=== PATIENT | male | born 1955 | race Caucasian/White ===

== ENCOUNTER → 2016-10-28 | Outpatient (CLI) | payer MEDICARE ==
--- NOTE | 2016-10-28 11:21 | CT ---
EXAMINATION TYPE: CT sinus wo con DATE OF EXAM: 10/28/2016 9:43 AM COMPARISON: NONE HISTORY: 60-year-old male complains of headache, dizziness, sinus congestion, and drainage x4 months. Symptoms are unresponsive to treatment. CT DLP: 641.6 mGycm Automated exposure control for dose reduction was used. TECHNIQUE: Noncontrast axial views of the paranasal sinuses were obtained. Coronal reconstructions pe rformed. FINDINGS: There is mild mucosal thickening involving the left greater than right maxillary sinuses as well as t he ethmoid air cells. The frontal and sphenoid sinuses are well pneumatized. There is no air-fluid level. Reactive betty- osteogenesis is not seen. There is no destruction of the osseous farley of the paranasal sinuses. The osteomeatal complexes are patent though slightly narrowed from mucosal thickening. Very slight leftward nasal septal deviation. The imaged brain, sella, skull base and orbits are normal in appearance. Visualized mastoid air cells and middle ear cavities are well pneumatized. Reformatted images confirm above findings. IMPRESSION: Mild chronic maxillary and ethmoid sinus disease.
== END | disposition home or self-care (01) ==
LOC: RADCTMAIN 09:26
PROVIDERS: ATTEND Otolaryngology
DX: J32.0 Chronic maxillary sinusitis (principal); J32.2 Chronic ethmoidal sinusitis
CPT/HCPCS: 70486

== ENCOUNTER → 2017-01-20 | Outpatient (CLI) | payer MEDICARE | END | disposition home or self-care (01) | LOC: RADMRIMAIN 19:31 | PROVIDERS: ATTEND Internal Medicine Rheumatology | DX: Z53.9 Procedure and treatment not carried out, unspecified reason (principal) ==

== ENCOUNTER → 2017-03-16 | Outpatient (CLI) | payer MEDICARE ==
--- NOTE | 2017-03-16 21:27 | CONS ---
DATE OF SERVICE: 03/16/2017 This patient is a 61-year-old gentleman who has been evaluated in the sleep center for obstructive sleep apnea/hypopnea syndrome. HISTORY OF PRESENT ILLNESS/SLEEP-WAKE EVALUATION: Patient was diagnosed with obstructive sleep apnea about 30 years ago. All these years he has been on treatment with CPAP. His last machine he had for about 6 years. Since that time his weight has increased and he developed snoring while using his CPAP. He has had awakenings from sleep as well as sleepiness during the day. His sleep schedule at the present time is from around 10 or 11 p.m. to 7 or 8 a.m. He gets out of bed around 10 or 11 a.m. Sometimes he has problems with falling asleep, but he usually falls asleep pretty quickly. He sleeps in different positions. No TV in bedroom. He wakes up from sleep up to 5 times with nocturia. No history of hypnagogic hallucinations, sleep paralysis or cataplexy. At present, according to his , he snores while using his machine. During the day, he feels sleepy. [place] Sleepiness Scale is significantly increased to 16. He has problems with memory, concentration, irritability, depression, sexual dysfunction. I checked the patient's CPAP unit. CPAP pressure is 10 cm of water. RAMP is 45 minutes, starting at a pressure of 4. Patient is using the machine every night; 30 out of 30 nights for more than 4 hours. Leak is within acceptable range at 10 L/minute. PAST MEDICAL HISTORY: 1. Hypertension. 2. Asthma. 3. Depression. 4. ADD. 5. Hypothyroidism. 6. Back problems. 7. Sciatic nerve problems. 8. Knee problems. 9. BPH. 10. Rheumatoid arthritis. PAST SURGICAL HISTORY: 1. Tonsillectomy. 2. Surgery for carpal tunnel syndrome bilaterally. SOCIAL HISTORY: Negative for smoking. Alcohol consumption is occasional. REVIEW OF SYSTEMS: No fevers. No double vision. No recent chest pain. No shortness of breath. No abdominal pain. No bleeding episodes. No blood in urine. No seizure episodes. Multiple awakenings from sleep. Sleepiness during the day. Swelling of the legs. FAMILY HISTORY: Hypertension, angina, heart problems. hyperlipidemia, stroke, arthritis, asthma, sinus headaches, bronchitis, lung problems, sleep apnea, snoring, pneumonia, headaches, cancer, diabetes, thyroid problems, during sleep, mental illness. MEDICATIONS: 1. Advair. 2. Lotrel. 3. Instaflex. 4. Baby aspirin. 5. Ziac. 6. Wellbutrin. 7. Flonase. 8. Ibuprofen. 9. Synthroid. 10. Methotrexate. 11. Oxybutynin. 12. Tramadol. 13. Vitamin D2. 14. Some addition to the meal with vitamins, omega-3. PHYSICAL EXAM: The patient is a pleasant 61-year-old gentleman without distress. VITAL SIGNS: Blood pressure 181/94, heart rate 75, respiratory rate 16. Height 5 feet 10-1/2 inches. Weight 299. BMI 42.2. Neck 19 inches in circumference. Temperature 98.3. Oxygen saturation at room air 95%. GENERAL: A pleasant patient without distress. HEENT: PERRLA. EOMI. Evaluation of oropharynx showed tongue protrudes midline. Extremely low position of soft palate. NECK: Supple. No JVD. Thyroid is not palpable. LUNGS: Clear to percussion and to auscultation. Good air exchange. No wheezing or rhonchi. HEART: S1, S2 regular. No murmurs, gallops or rubs. ABDOMEN: Obese. EXTREMITIES: One to two plus bilateral ankle edema. PAPER PROCESSING MACHINE HELPER: Awake, alert and oriented x3. Cranial nerves 2 through 7 are intact. There is no fasciculation or atrophy noted. No focal deficits observed. IMPRESSION: 1. Obstructive sleep apnea/hypopnea syndrome for 30 years. Patient continues to use his CPAP equipment but has developed snoring, multiple awakenings from sleep and excessive daytime sleepiness; [place] Sleepiness Scale is 16. Extremely low position of soft palate. Patient has demonstrated 100% compliance with CPAP therapy. CPAP pressure is 10 cm of water. 2. Hypertension. 3. Swelling of the legs, 1 to 2+. 4. Obesity. 5. Asthma. 6. Depression. 7. History of attention deficit disorder. 8. Nasal septum deviation with some restriction of nasal breathing. 9. Hypothyroidism. 10. Sciatic nerve problems. 11. Back problems. 12. Benign prostatic hypertrophy and nocturia. 13. Status post tonsillectomy. 14. Status post carpal tunnel syndrome surgery on both arms. 15. Status post LASIK surgery. 16. Rheumatoid arthritis. PLAN: 1. CPAP titration for reevaluation of effective CPAP pressure at the present time, now that patient's weight has increased by about 100 pounds in the last 6 years. 2. I adjusted RAMP down to 20 minutes. 3. Aggressive losing-weight program. 4. Sleep hygiene with regular time in bed for at least 8 hours. 5. No driving if feeling any sleepiness. 6. All necessary prescriptions for CPAP supplies. Thank you very much for allowing me to participate in the management of your patient. Sincerely, Jluis Schmitt. , PhD, FAASM. Diplomat of [place] [employer], Sleep Medicine Board by [place] [employer] [place] [employer] [facility] [place] [facility]
== END | disposition home or self-care (01) ==
LOC: SLEEP 13:39
PROVIDERS: ATTEND Internal Medicine
DX: G47.33 Obstructive sleep apnea (adult) (pediatric) (principal); I10 Essential (primary) hypertension; M79.89 Other specified soft tissue disorders; E66.9 Obesity, unspecified; J45.909 Unspecified asthma, uncomplicated; F32.9 Major depressive disorder, single episode, unspecified; J34.2 Deviated nasal septum; E03.9 Hypothyroidism, unspecified; N40.0 Benign prostatic hyperplasia without lower urinary tract symptoms; M06.9 Rheumatoid arthritis, unspecified; R35.1 Nocturia
CPT/HCPCS: 99211

== ENCOUNTER → 2017-07-15 | Outpatient (CLI) | payer MEDICARE ==
[2017-07-15 12:02] LABS: EKG EKG PERFORMED
[2017-07-15 12:14] LABS: Basophils % (A) 0 %; CH 31.3; CHCM 32.3; Eosinophils # (A) 0.3 k/uL (0-0.7); Eosinophils % (A) 4 %; HCT 45.6 % (39.0-53.0); HGB 14.7 gm/dL (13.0-17.5); Luc # (Auto) 0.28; Luc % (Auto) 3; Lymphocytes # (A) 1.5 k/uL (1.0-4.8); Lymphocytes % (A) 16 %; MCH 31.4 pg (25.0-35.0); MCHC 32.3 g/dL (31.0-37.0); MCV 97.2 fL (80.0-100.0); Mean Platelet Volume 8.6; Monocytes # (A) 0.9 k/uL (0-1.0); Monocytes % (A) 9 %; Neutrophils # (A) 6.4 k/uL (1.3-7.7); Neutrophils % (A) 68 %; RBC 4.69 m/uL (4.30-5.90); RDW 15.2 % (11.5-15.5); WBC 9.4 k/uL (3.8-10.6); WBC (Perox) 9.77
[2017-07-15 12:27] LABS: Anion Gap 7 mmol/L; Blood Urea Nitrogen 14 mg/dL (9-20); Calcium 9.9 mg/dL (8.4-10.2); Carbon Dioxide 33 mmol/L (22-30); Chloride 98 mmol/L (98-107); Glucose 133 mg/dL (74-99); Non-African American GFR(MDRD) >60 (>60 ml/min/1.73 sqM); Potassium 3.5 mmol/L (3.5-5.1); Sodium 138 mmol/L (137-145)
[2017-07-15 12:32] LABS: Appearance,Urine Clear (Clear); Bilirubin,Urine Negative (Negative); Glucose,Urine (UA) Negative (Negative); Ketones,Urine Negative (Negative); Leukocyte Esterase,Urine Negative (Negative); Nitrite,Urine Negative (Negative); Partial Thromboplastin Time 23.4 sec (22.0-30.0); Protein,Urine Negative (Negative); Prothrombin Time 10.4 sec (9.0-12.0); Specific Gravity,Urine 1.014 (1.001-1.035); UA Billing (MACRO vs. MICRO) CHEM; Urobilinogen,Urine <2.0 mg/dL (<2.0)
--- NOTE | 2017-07-15 12:59 | XR ---
EXAMINATION TYPE: XR chest 2V DATE OF EXAM: 07/15/2017 COMPARISON: None HISTORY: 61-year-old male presurgical evaluation for lumbar surgery. TECHNIQUE: Frontal and lateral views FINDINGS: Heart is normal size. Aortic knob appears somewhat ectatic. Mild interstitial prominence of the chron ic appearance. Strandy atelectasis in the lower lungs. No consolidation or pleural effusion. IMPRESSION: 1. No acute cardiopulmonary process. 2. Ectatic appearance to the aortic knob. Nonemergent follow-up contrast enhanced CT can be performed to exclude underlying aortic aneurysm.
== END | disposition home or self-care (01) ==
LOC: LABPAT 11:40
PROVIDERS: ATTEND Orthopaedic Surgery Orthopaedic Surgery of the Spine
DX: Z01.810 Encounter for preprocedural cardiovascular examination (principal); M43.16 Spondylolisthesis, lumbar region; Z79.01 Long term (current) use of anticoagulants; Z01.812 Encounter for preprocedural laboratory examination; Z01.818 Encounter for other preprocedural examination
CPT/HCPCS: 36415; 71020; 80048; 81003; 85025; 85610; 85730; 87070; 93005

== ENCOUNTER 2018-01-10 05:51 | Day surgery (SDC) | payer MEDICARE ==
[2018-01-04 10:48] VITALS: BMI 38.0
--- NOTE | 2018-01-09 14:16 | HP ---
HISTORY AND PHYSICAL DATE OF SERVICE: 01/10/2018 Ye Montes is a 62-year-old patient seen with progressive right shoulder pain. We discussed options. He elected to proceed with arthroscopy. Consent was obtained. Preoperative medical clearance was provided Dr. Eliza Davenport. PAST MEDICAL HISTORY: Hypertension, hypothyroidism, asthma. PAST SURGICAL HISTORY: Bilateral knee arthroscopy, spinal fusion. DAILY MEDICATIONS: 1. Advair. 2. Ditropan. 3. Lotrel. 4. Proscar. 5. Synthroid. 6. Gabapentin. 7. Ziac. SOCIAL HISTORY: Patient denies current tobacco use. PHYSICAL EVALUATION OF THE RIGHT SHOULDER: Flexion 90 degrees, abduction 80 degrees, external rotation is 20 degrees with pain and weakness. Tenderness along the anterolateral acromion rotator cuff insertion site. Impingement sign positive at 80 degrees. Drop-arm sign positive. Distal neurovascular exam intact. RIGHT SHOULDER RADIOGRAPHS: Revealed a type 2 anterior acromion, evidence for acromioclavicular joint osteoarthritis. An MRI of the right shoulder revealed a massive retracted rotator cuff tendon tear. IMPRESSION: Right shoulder impingement with rotator cuff tear. PLAN: Right shoulder arthroscopy, subacromial decompression, possible arthroscopic rotator cuff repair, probable Grace procedure and debridement. MMODL / IJN: [id number] /
[2018-01-10] MEDS ORDERED: ONDANSETRON 4 MG/2 ML VIAL IVP ONE (05:54)
[2018-01-10] MEDS ORDERED: SCOPOLAMINE 1.5MG/72HR PATCH TRANSDERM ONE (05:54)
[2018-01-10] MEDS ORDERED: MORPHINE SULFATE 4 MG/ML SYRINGE IV PRN (05:54)
[2018-01-10] MEDS ORDERED: DEXAMETHASONE SOD PHOSPHATE 10 MG/ML 1 ML VIAL IV ONE (05:54)
[2018-01-10] MEDS ORDERED: LACTATED RINGERS 1,000 ML IV SCH (05:54)
[2018-01-10] MEDS ORDERED: LIDOCAINE 1% 20 ML VIAL (10MG/ML) FOR IV START INTRADERMA PRN (05:54)
[2018-01-10 06:55] LABS: Glucose,Whole Blood 247 mg/dL (75-99)
[2018-01-10] MEDS ORDERED: MIDAZOLAM 2 MG/2 ML VIAL ONE ×2 (07:01→07:37)
[2018-01-10] MEDS ORDERED: fentaNYL (PF) 50 MCG/ML 2 ML AMP ONE ×2 (07:04→07:37)
[2018-01-10] MEDS ORDERED: INSULIN ASPART 100 UNIT/ML 1 ML 10 ML VIAL SQ ONE ×2 (07:35→10:10)
[2018-01-10] MEDS ORDERED: LIDOCAINE 2% INJ 20 MG/ML (20 ML MDV) ONE (07:37)
[2018-01-10] MEDS ORDERED: ROPIVACAINE 5 MG/ML 30 ML VIAL ONE (07:37)
[2018-01-10] MEDS ORDERED: LIDOCAINE 1% INJ 10MG/ML (20 ML MDV) ONE (07:37)
[2018-01-10] MEDS ORDERED: SUCCINYLCHOLINE CHLORIDE 100 MG/5 ML SYR IV ONE (07:37)
[2018-01-10] MEDS ORDERED: PROPOFOL 10 MG/ML 20 ML VIAL IV ONE (07:37)
[2018-01-10] MEDS ORDERED: LACTATED RINGERS 1,000 ML IV ONE ×2 (07:37→08:35)
[2018-01-10] MEDS ORDERED: ePHEDrine SULFATE/0.9% NACL/PF 50 MG/5 ML SYRINGE IV ONE (07:37)
[2018-01-10 08:35] LABS: Glucose,Whole Blood 254 mg/dL (75-99)
[2018-01-10 09:50] VITALS: TEMP 97.4
[2018-01-10 09:55] LABS: Glucose,Whole Blood 244 mg/dL (75-99)
[2018-01-10 09:58] VITALS: RESP 16
--- NOTE | 2018-01-10 09:59 | P.OP ---
Date of Procedure: 01/10/18 Preoperative Diagnosis: Right shoulder impingement Postoperative Diagnosis: 1. Right shoulder rotator cuff tear 2. Right shoulder impingement 3. Right shoulder acromioclavicular joint osteoarthritis 4. Right shoulder partial long head biceps tendon tear 5. Right shoulder anterior labral tear Procedure(s) Performed: 1. Right shoulder arthroscopic rotator cuff repair 2. Right shoulder arthroscopic subacromial decompression 3. Right shoulder arthroscopic Grace procedure 4. Right shoulder arthroscopic biceps tenotomy 5. Right shoulder arthroscopic debridement labral tear Implants: 4-4.75 Arthrex anchors Anesthesia: GETA, regional (Interscalene block) Surgeon: Denton Venegas Grinder Set Up Operator Gear Tool #1: Moy Belcher Estimated Blood Loss (ml): 15 Pathology: none sent Condition: stable Disposition: PACU Indications for Procedure: 62-year-old patient seen with progressive right shoulder pain. After treatment options were discussed, he elected to proceed with arthroscopy. Operative Findings: see description of procedure Description of Procedure: Patient underwent a shoulder block by department of anesthesia. The patient was then taken to the operative suite. The patient underwent a general anesthetic by the department of anesthesia. The patient was placed into a lateral position and secured. There was appropriate padding of the bony prominence. Right shoulder was then prepped and draped in normal sterile orthopedic fashion. We placed the extremity in 10 pounds of longitudinal traction. A posterior incision was now made for a posterior working portal site. The trocar and cannula were inserted into the glenohumeral joint. Arthroscopy was initiated. Spinal needle was now inserted anteriorly, to ascertain the anterior working portal site. An incision was now made in that area, a trocar was inserted followed by a probe. Was superficial tearing of the anterior labrum. There was partial tearing of the long head biceps tendon along with some hyperemia. There was an obvious large rotator cuff tear that was clearly visualized from the glenohumeral side. I performed an arthroscopic biceps tenotomy. I debrided the superficial labral tears down to stable tissue. Residual labrum was probed and found to be stable. Instruments were now removed from the glenohumeral joint. Utilizing the posterior working portal site, the trocar and cannula were inserted into the subacromial space. Arthroscopy initiated. I made an incision 2 fingerbreadths lateral to the acromion. I introduced my trocar followed by my ArthroCare ablator. I now began ablating thick subacromial bursal tissue, which exposed the undersurface of the anterior acromion. This was diminished subacromial space. There was a very prominent anterior acromion. A motorized bur was introduced and a subacromial decompression was performed. I also excised some osteophytes off the inferior aspect of the distal clavicle. The AC joint was visualized and noted to be fairly arthritic. Our motorized bur was introduced in the anterior portal site and a Grace procedure was performed without difficulty, decompressing the AC joint nicely. I turned my attention to the rotator cuff. There was a large approximately 2.5 cm rotator cuff tendon tear along the distal supraspinatus. It was mobile over the footprint. I debrided the margins getting down to stable tissue. I abraded the footprint with a motorized bur. I created an assessory portal site off the lateral acromion. I introduced 2 medial anchors with 2 sutures each. I passed all 8 limbs of suture through good bites of rotator cuff tendon. We noted a potential dogears anteriorly introduced 1 suture loop. I now crisscrossed the sutures and introduced 2 lateral anchors which compressed the tendon along the footprint very nicely. All residual suture limbs were clipped. We had a good stable repair. I injected 1 mL of the Renue intra-articular. Instruments now removed from the portal sites. All portal sites were approximated with nylon suture. Sterile dressings were applied followed by a shoulder immobilizer. 4- 4.75Arthrex SwiveLock anchors were utilized as implants. Next branch assisted with the procedure. The patient was awakened, transferred to a bed, and taken to recovery in stable condition.
--- NOTE | 2018-01-10 11:02 | P.ONQ ---
Anesthesiology Proc Note - PNB - Peripheral Nerve Block Performed Right Interscalene Indication: Acute Post-Operative Pain, Requested by physician (Dr Venegas) Sedation Type: Sedate with meaningful contact maintained Preparation: Sterile Prep Position: Supine Catheter: None Needle Types: Other (see comment) (Sonal) Needle Size: 50mm (2") Needle Gauge: 21 Technique: Ultrasound (0.5% ropivacaaine 14cc, 2% Lidocaine with 1:100,000 epi 14cc) Blood Aspirated: No Pain Paresthesia on Injection Noted: No Resistance on Injection: Normal Events: Uneventful and Well Tolerated
[2018-01-10] MEDS ORDERED: HYDROcodone/APAP 5-325MG 1 EACH TAB PO ONE (11:28)
[2018-01-10 11:32] VITALS: BP 141/74; PULSE 87
== END 2018-01-10 11:59 | disposition home or self-care (01) ==
LOC: OR 05:51
PROVIDERS: ATTEND Orthopaedic Surgery
DX: M75.101 Unspecified rotator cuff tear or rupture of right shoulder, not specified as traumatic (principal); M19.011 Primary osteoarthritis, right shoulder; S43.491A Other sprain of right shoulder joint, initial encounter; S46.111A Strain of muscle, fascia and tendon of long head of biceps, right arm, initial encounter; E11.9 Type 2 diabetes mellitus without complications; M06.9 Rheumatoid arthritis, unspecified; I10 Essential (primary) hypertension; E03.9 Hypothyroidism, unspecified; J45.909 Unspecified asthma, uncomplicated; Z79.899 Other long term (current) drug therapy; Z87.891 Personal history of nicotine dependence; Z79.82 Long term (current) use of aspirin; Z79.84 Long term (current) use of oral hypoglycemic drugs
CPT/HCPCS: 29827; 29826; 29824; 29822; 64415; C1713 ×2; C1765; J2001 ×2; J2250; J1100; J0690; J2405; J3010; J2795; J0330; J2704

== ENCOUNTER 2018-04-22 12:16 | Emergency (ER) | payer MEDICARE ==
[2018-04-22 12:25] VITALS: TEMP 98.4
[2018-04-22] MEDS ORDERED: ONDANSETRON 4 MG/2 ML VIAL IVP STA (12:30)
[2018-04-22] MEDS ORDERED: SODIUM CHLORIDE 0.9% 1,000 ML IV STA (12:30)
--- NOTE | 2018-04-22 12:40 | ED ---
Nausea/Vomiting/Diarrhea HPI - General Chief complaint: Nausea/Vomiting/Diarrhea Stated complaint: diarrhea Time Seen by Provider: 04/22/18 12:30 Source: patient, RN notes reviewed Mode of arrival: ambulatory Limitations: no limitations - History of Present Illness Initial comments: 62-year-old male presents emergency Department chief complaint abdominal pain, vomiting and diarrhea. He states he's been having ongoing abdominal cramping with multiple episodes of watery diarrhea throughout the day and night since Monday. He states today he had 3 episodes of emesis which were bilious and contains some food denies any hematemesis or coffee-ground emesis. Patient states that he went to [facility] today and was referred to the emergency department. He denies any prior abdominal surgeries. He does admit that he had Campylobacter in the past and it feels similar. He denies any recent traveling, antibiotic use. Patient also states that he has a history of diverticulitis and he has some lower abdominal pain and cramping. He has no dysuria no hematuria or urinary frequency. He does admit to some chills with no fever. - Related Data Home Medications Medication Instructions Recorded Confirmed Advanced Instaflex 1 tab PO DAILY 07/24/17 01/10/18 Aspirin [Adult Low Dose Aspirin EC] 81 mg PO DAILY 07/24/17 01/10/18 Bisoprolol-Hctz 10-6.25 mg [Ziac 1 tab PO QAM 07/24/17 01/10/18 10-6.25] DULoxetine HCL [Cymbalta] 30 mg PO QAM 07/24/17 01/10/18 Ergocalciferol (Vitamin D2) 50,000 unit PO FR 07/24/17 01/10/18 [Vitamin D2] Flax 1 tab PO DAILY 07/24/17 01/10/18 Fluticasone Nasal [place] [Flonase 2 spr EA NOSTRIL BID 07/24/17 01/10/18 Nasal [place]] Fluticasone/Salmeterol [Advair 1 puff INHALATION RT-BID 07/24/17 01/10/18 250-50 Diskus] Folic Acid(Unknown Dose) 1 tab PO DAILY 07/24/17 01/10/18 HYDROcodone/APAP 7.5-325MG [[place] 1 tab PO TID PRN 07/24/17 01/10/18 7.5-325] Krill/Om-3/Dha/Epa/Phospho/Ast 1 cap PO DAILY 07/24/17 01/10/18 [[place]-3 Krill Oil 300 mg Sfgl] Levothyroxine Sodium [Synthroid] 150 mcg PO QAM 07/24/17 01/10/18 Methotrexate Sodium [Methotrexate] 2.5 mg PO CARR 07/24/17 01/10/18 Multivitamins, Thera [Multivitamin 1 tab PO DAILY 07/24/17 01/10/18 (formulary)] Oxybutynin Chloride 5 mg PO HS 07/24/17 01/10/18 Tamsulosin HCl [Flomax] 0.4 mg PO DAILY 07/24/17 01/10/18 amLODIPine BESYLATE/BENAZEPRIL 1 cap PO DAILY 07/24/17 01/10/18 [Lotrel 5-20 mg Capsule] buPROPion XL [Wellbutrin Xl] 300 mg PO QAM 07/24/17 01/10/18 traMADol HCL [Ultram] 50 mg PO TID PRN 07/24/17 01/10/18 Etanercept [Enbrel] 50 mg SQ MO 01/04/18 01/10/18 sitaGLIPtin PHOS/metFORMIN HCL 1 each PO DAILY 01/04/18 01/10/18 [Janumet Xr 100-1,000 mg Tablet] Previous Rx's Medication Instructions Recorded Nitrofurantoin Monohyd/M-Cryst 100 mg PO Q12HR 5 Days #10 cap 07/30/17 [Macrobid] Ciprofloxacin HCl [Cipro] 500 mg PO Q12HR #10 tablet 04/22/18 Dicyclomine [Bentyl] 20 mg PO TID #30 tablet 04/22/18 Ondansetron Odt [Zofran Odt] 4 mg PO Q8HR PRN #10 tab 04/22/18 Allergies Allergy/AdvReac Type Severity Reaction Status Date / Time mold AdvReac congestion Verified 04/22/18 12:24 dust AdvReac congestion Uncoded 04/22/18 12:24 pet dander AdvReac itchy Uncoded 04/22/18 12:24 eyes, congestion Review of Systems ROS Statement: Those systems with pertinent positive or pertinent negative responses have been documented in the HPI. ROS Other: All systems not noted in ROS Statement are negative. Past Medical History Past Medical History: Asthma, Diabetes Mellitus, Eye Disorder, Hypertension, Prostate Disorder, Rheumatoid Arthritis (RA), Sleep Apnea/CPAP/BIPAP, Thyroid Disorder Additional Past Medical History / Comment(s): . Bilateral Keratoconus, uses CPAP , chronic lower back pain. new dx of diabetes History of Any Multi-Drug Resistant Organisms: None Reported Past Surgical History: Back Surgery, Orthopedic Surgery, Tonsillectomy Additional Past Surgical History / Comment(s): Bilateral Carpal Tunnel surgery, bilateral meniscus repair, bilateral lasik eye surgery, implant right eye. back fusion 07/2017, colonoscopy, Past Anesthesia/Blood Transfusion Reactions: No Reported Reaction Past Psychological History: Depression Smoking Status: Former smoker Past Alcohol Use History: Rare Past Drug Use History: None Reported - Past Family History Mother Family Medical History: Cancer General Exam Limitations: no limitations General appearance: alert, in no apparent distress Head exam: Present: atraumatic, normocephalic, normal inspection Eye exam: Present: normal appearance, PERRL, EOMI. Absent: scleral icterus, conjunctival injection, periorbital swelling ENT exam: Present: normal exam, normal oropharynx, mucous membranes moist Neck exam: Present: normal inspection. Absent: tenderness, meningismus, lymphadenopathy Respiratory exam: Present: normal lung sounds bilaterally. Absent: respiratory distress, wheezes, rales, rhonchi, stridor Cardiovascular Exam: Present: regular rate, normal rhythm, normal heart sounds. Absent: systolic murmur, diastolic murmur, rubs, gallop, clicks GI/Abdominal exam: Present: soft, tenderness (Mild to moderate lower abdominal tenderness), normal bowel sounds. Absent: distended, guarding, rebound, rigid Back exam: Absent: CVA tenderness (R), CVA tenderness (L) Skin exam: Present: warm, dry, intact, normal color. Absent: rash Course Vital Signs 04/22/18 04/22/18 12:22 14:20 Temperature 98.4 F Pulse Rate 102 H 93 Respiratory 16 16 Rate Blood Pressure 142/83 140/80 O2 Sat by Pulse 96 95 Oximetry Medical Decision Making - Medical Decision Making 62-year-old male presents emergency department for abdominal cramping, diarrhea. Patient was unable to provide sample in the emergency department. Patient does have mild leukocytosis though CT showed no evidence of acute diverticulitis. Patient will be treated for traveler's diarrhea at this time ciprofloxacin for 5 days. Patient will follow-up for recheck and patient will do outpatient stool studies. - Lab Data Result diagrams: 04/22/18 12:43 04/22/18 12:43 Lab Results 04/22/18 04/22/18 04/22/18 Range/Units 12:43 12:43 14:24 WBC 14.0 H (3.8-10.6) k/uL RBC 5.16 (4.30-5.90) m/uL Hgb 15.5 (13.0-17.5) gm/dL Hct 46.8 (39.0-53.0) % MCV 90.6 (80.0-100.0) fL MCH 30.0 (25.0-35.0) pg MCHC 33.1 (31.0-37.0) g/dL RDW 14.9 (11.5-15.5) % Plt Count 250 (150-450) k/uL Neutrophils % 73 % Lymphocytes % 12 % Monocytes % 8 % Eosinophils % 3 % Basophils % 0 % Neutrophils # 10.2 H (1.3-7.7) k/uL Lymphocytes # 1.7 (1.0-4.8) k/uL Monocytes # 1.1 H (0-1.0) k/uL Eosinophils # 0.4 (0-0.7) k/uL Basophils # 0.0 (0-0.2) k/uL Sodium 139 (137-145) mmol/L Potassium 3.5 (3.5-5.1) mmol/L Chloride 104 (98-107) mmol/L Carbon Dioxide 23 (22-30) mmol/L Anion Gap 12 mmol/L BUN 18 (9-20) mg/dL Creatinine 0.89 (0.66-1.25) mg/dL Est GFR (CKD-EPI)AfAm >90 (>60 ml/min/1.73 sqM) Est GFR (CKD-EPI)NonAf >90 (>60 ml/min/1.73 sqM) Glucose 117 H (74-99) mg/dL Calcium 9.9 (8.4-10.2) mg/dL Total Bilirubin 0.8 (0.2-1.3) mg/dL AST 34 (17-59) U/L ALT 63 (21-72) U/L Alkaline Phosphatase 93 (38-126) U/L Total Protein 7.1 (6.3-8.2) g/dL Albumin 4.3 (3.5-5.0) g/dL Amylase 39 (30-110) U/L Lipase 18 L (23-300) U/L Urine Color Yellow Urine Appearance Clear (Clear) Urine pH 6.0 (5.0-8.0) Ur Specific [place] 1.050 H (1.001-1.035) Urine Protein Trace H (Negative) Urine Glucose (UA) Negative (Negative) Urine Ketones 1+ H (Negative) Urine Blood Negative (Negative) Urine Nitrite Negative (Negative) Urine Bilirubin Negative (Negative) Urine Urobilinogen <2.0 (<2.0) mg/dL Ur Leukocyte Esterase Negative (Negative) Disposition Clinical Impression: Diarrhea, Abdominal cramping, Vomiting Disposition: HOME SELF-CARE Condition: Stable Instructions: Acute Diarrhea (ED) Additional Instructions: Please return to the Emergency Department if symptoms worsen or any other concerns. Prescriptions: Ciprofloxacin HCl [Cipro] 500 mg PO Q12HR #10 tablet Dicyclomine [Bentyl] 20 mg PO TID #30 tablet Ondansetron Odt [Zofran Odt] 4 mg PO Q8HR PRN #10 tab PRN Reason: Nausea Is patient prescribed a controlled substance at d/c from ED?: No Referrals: Eliza Davenport MD [Primary Care Provider] - 1-2 days Time of Disposition: 15:10
[2018-04-22 12:55] LABS: Basophils % (A) 0 %; Eosinophils # (A) 0.4 k/uL (0-0.7); Eosinophils % (A) 3 %; HCT 46.8 % (39.0-53.0); HGB 15.5 gm/dL (13.0-17.5); Lymphocytes # (A) 1.7 k/uL (1.0-4.8); Lymphocytes % (A) 12 %; MCHC 33.1 g/dL (31.0-37.0); MCV 90.6 fL (80.0-100.0); Mean Platelet Volume 8.4; Monocytes # (A) 1.1 k/uL (0-1.0); Monocytes % (A) 8 %; Neutrophils # (A) 10.2 k/uL (1.3-7.7); Neutrophils % (A) 73 %; Platelet Count 250 k/uL (150-450); RBC 5.16 m/uL (4.30-5.90); RDW 14.9 % (11.5-15.5)
[2018-04-22 13:03] LABS: ALT 63 U/L (21-72); AST 34 U/L (17-59); Albumin 4.3 g/dL (3.5-5.0); Alkaline Phosphatase 93 U/L (38-126); Amylase 39 U/L (30-110); Anion Gap 12 mmol/L; Blood Urea Nitrogen 18 mg/dL (9-20); Calcium 9.9 mg/dL (8.4-10.2); Carbon Dioxide 23 mmol/L (22-30); Chloride 104 mmol/L (98-107); Glucose 117 mg/dL (74-99); Lipase 18 U/L (23-300); Potassium 3.5 mmol/L (3.5-5.1); Sodium 139 mmol/L (137-145); Total Bilirubin 0.8 mg/dL (0.2-1.3); Total Protein 7.1 g/dL (6.3-8.2)
--- NOTE | 2018-04-22 14:35 | CT ---
EXAMINATION TYPE: CT abdomen pelvis w con DATE OF EXAM: 04/22/2018 COMPARISON: 07/29/2017 HISTORY: Diarrhea CT DLP: 1682 mGycm Automated exposure control for dose reduction was used. TECHNIQUE: Helical acquisition of images was performed from the lung bases through the pelvis. CONTRAST: Performed without Oral Contrast and with IV Contrast, patient injected with 100 ml mL of Isovue 300. FINDINGS: Lung bases are clear of consolidation. There is minimal linear density at the posterior trin[place] g bases consistent with mild subsegmental atelectasis. Heart size is normal. There is no pericardial effusion. Liver spleen pancreas gallbladder appear norm al. Bile ducts are not dilated. There is no adrenal mass. Kidneys show satisfactory contrast opacification. There is no hydronephrosi s. Bladder distends smoothly. There are some prostatic calcifications. There are few sigmoid divertic juice. There is no evidence of diverticulitis. There is no evidence of appendicitis. There is no sign o f free air. There is a minimal L4-5 spondylolisthesis. There is posterior fusion surgery in the lower lumbar spine. There is no ascites. There is no retroperitoneal adenopathy. IMPRESSION: MINIMAL SIGMOID DIVERTICULOSIS. MINIMAL SUBSEGMENTAL ATELECTASIS AT THE POSTERIOR LUNG BASES IS IMPRO GAMALIEL COMPARED TO OLD EXAM. STABLE MILD FIRST-DEGREE L4-5 SPONDYLOLISTHESIS. NO SIGN OF ACUTE ABDOMEN A ND PELVIS.
[2018-04-22 14:37] LABS: Appearance,Urine Clear (Clear); Bilirubin,Urine Negative (Negative); Blood,Urine Negative (Negative); Color,Urine Yellow; Glucose,Urine (UA) Negative (Negative); Ketones,Urine 1+ (Negative); Leukocyte Esterase,Urine Negative (Negative); Nitrite,Urine Negative (Negative); Protein,Urine Trace (Negative); Urobilinogen,Urine <2.0 mg/dL (<2.0)
[2018-04-22 15:41] VITALS: BP 162/88; PULSE 90; RESP 19
== END 2018-04-22 15:39 | disposition home or self-care (01) ==
LOC: EC 12:16
DX: R19.7 Diarrhea, unspecified (principal); R10.30 Lower abdominal pain, unspecified; R11.10 Vomiting, unspecified; D72.829 Elevated white blood cell count, unspecified; J45.909 Unspecified asthma, uncomplicated; E11.9 Type 2 diabetes mellitus without complications; I10 Essential (primary) hypertension; M06.9 Rheumatoid arthritis, unspecified; G47.30 Sleep apnea, unspecified; E07.9 Disorder of thyroid, unspecified; F32.9 Major depressive disorder, single episode, unspecified; Z87.891 Personal history of nicotine dependence; Z87.19 Personal history of other diseases of the digestive system; Z99.89 Dependence on other enabling machines and devices; Z98.1 Arthrodesis status; Z98.890 Other specified postprocedural states; Z79.51 Long term (current) use of inhaled steroids; Z79.82 Long term (current) use of aspirin; Z79.84 Long term (current) use of oral hypoglycemic drugs; Z79.899 Other long term (current) drug therapy; Z91.048 Other nonmedicinal substance allergy status
CPT/HCPCS: 36415; 80053; 82150; 83690; 85025; 81003; 87324; 74177; 99284; 96374; 96361; J2405; Q9967

== ENCOUNTER → 2018-05-31 | Outpatient (CLI) | payer MEDICARE ==
--- NOTE | 2018-05-31 16:35 | PN ---
PROGRESS NOTE DATE OF SERVICE: 05/31/2018 This patient is a 62-year-old gentleman who has been followed in the sleep center for treatment of obstructive sleep apnea-hypopnea syndrome. Patient is successfully continuing to use his CPAP equipment every night without significant problems. Occasionally he may have some snoring. At present he is using a nasal mask. [place] Sleepiness Scale today is 12. I checked the patient's CPAP unit. CPAP pressure is 14 cm of water. Usage is 29/30 nights for more than 4 hours. Average usage is 8.2 hours, which is normal. Leak 34 L/minute. Borderline apnea-hypopnea index reading only 1.4, which is perfect. MEDICATIONS: 1. Janumet. 2. Prednisone. 3. Advair. 4. Lotrel. 5. Ziac. 6. Wellbutrin. 7. Flonase. 8. Ibuprofen. 9. Methotrexate. 10.Oxybutynin. 11.Tramadol. 12.Vitamin D supplements. 13.Enbrel. PHYSICAL EXAMINATION: GENERAL: A pleasant patient without any distress. VITAL SIGNS: BP 163/87, HR 74, R 16, height 5 feet 10 inches, weight 286.6, body mass index 41.0. Patient lost about 15 pounds of weight since previous visit. Oxygen saturation at room air 95% HEENT: PERRLA, EOMI. Evaluation of oropharynx showed tongue protrudes midline. Extremely low position of soft palate. NECK: Supple. No JVD. Thyroid is not palpable. LUNGS: Clear to percussion and to auscultation. Good air exchange. No wheezing or rhonchi. HEART: S1, S2 regular. No murmurs, gallops or rubs. ABDOMEN: Obese. EXTREMITIES: No clubbing or cyanosis. GARMENT STEAMER: Awake, alert, and oriented X3. Cranial nerves 2 to 7 intact. There is no fasciculation or atrophy. noted. No focal deficits observed. IMPRESSION: 1. Obstructive sleep apnea-hypopnea syndrome. Patient demonstrated practically 100% compliance with treatment, benefitting from treatment. 2. Obesity. Patient lost around 15 pounds since previous visit. 3. History of asthma. 4. Depression. 5. History of attention deficit disorder. 6. Nasal septum deviation. 7. Thyroid disorder. 8. History of sciatic nerve problem. 9. Benign prostatic hypertrophy. 10.Status post tonsillectomy. 11.Status post surgical treatment for carpal tunnel syndrome. 12.History of rheumatoid arthritis. 13.Hypertension. PLAN: 1. We fitted the patient with a new style of mask, DreamWear. I will write a prescription for this mask. 2. Patient will continue to use CPAP equipment every night. 3. Continue losing weight. 4. Sleep hygiene with regular time in bed for at least 8 hours. 5. No driving if feeling any sleepiness. 6. Will maintain all necessary prescriptions for the mask, tube, filters. Thank you very much for allowing me to participate in the management of your patient. Sincerely, Jluis Schmitt MD, PhD, FAASM Diplomat of [place] [employer] [place] [employer] Cataract Lens Generator of [facility] [place] MMODL / ASCENCIONN: [id number] /
== END | disposition home or self-care (01) ==
LOC: SLEEP 13:24
PROVIDERS: ATTEND Internal Medicine
DX: G47.33 Obstructive sleep apnea (adult) (pediatric) (principal); E66.9 Obesity, unspecified; J45.909 Unspecified asthma, uncomplicated; F32.9 Major depressive disorder, single episode, unspecified; J34.2 Deviated nasal septum; E07.9 Disorder of thyroid, unspecified; N40.0 Benign prostatic hyperplasia without lower urinary tract symptoms; I10 Essential (primary) hypertension; Z68.41 Body mass index [BMI] 40.0-44.9, adult; Z79.51 Long term (current) use of inhaled steroids; Z86.59 Personal history of other mental and behavioral disorders; Z87.39 Personal history of other diseases of the musculoskeletal system and connective tissue; Z90.89 Acquired absence of other organs; Z79.899 Other long term (current) drug therapy; Z79.1 Long term (current) use of non-steroidal anti-inflammatories (NSAID); Z79.891 Long term (current) use of opiate analgesic; Z99.89 Dependence on other enabling machines and devices; Z98.890 Other specified postprocedural states

== ENCOUNTER 2018-07-05 05:52 | Day surgery (SDC) | payer MEDICARE ==
[2018-07-02 11:14] VITALS: BMI 39.4
--- NOTE | 2018-07-04 14:11 | HP ---
HISTORY AND PHYSICAL DATE OF SERVICE: 07/05/2018 Ye Montes is a 62-year-old patient seen with progressive left shoulder pain. Treatment options were discussed with him. He elected to proceed with arthroscopy. Consent regarding the procedure was obtained. PAST MEDICAL HISTORY: Hypertension, hypothyroidism, rheumatoid arthritis, asthma. PAST SURGICAL HISTORY: Bilateral knee arthroscopy, spine surgery. MEDICATIONS: 1. Advair. 2. Aspirin. 3. Ditropan. 4. Lotrel. 5. Methotrexate. 6. Synthroid. 7. Ziac. 8. Gabapentin. 9. Enbrel. ALLERGIES: None. SOCIAL HISTORY: Patient denies tobacco use. PHYSICAL EVALUATION LEFT SHOULDER: Flexion 90 degrees, abduction 90 degrees, external rotation is 40 degrees with weakness. There is tenderness along the anterolateral acromion rotator cuff insertion site. Impingement is positive at 90 degrees. Drop-arm sign is positive. Distal neurovascular exam is intact. RADIOGRAPHS LEFT SHOULDER: Type 2 anterior acromion, acromioclavicular joint osteoarthritis and cystic changes of the tuberosity. Left shoulder MRI revealed rotator cuff tear, biceps subluxation, and a large effusion. IMPRESSION: 1. Left shoulder impingement with rotator cuff tear. 2. Left shoulder acromioclavicular joint osteoarthritis. 3. Hypertension. 4. Hyperlipidemia. 5. Hypothyroidism. PLAN: Left shoulder arthroscopy with subacromial decompression, possible arthroscopic rotator cuff repair, possible Grace procedure, biceps tendon tenotomy and debridement. MMODL / IJN: [id number] /
[~2018-07-05 05:52] MED LIST: DEXAMETHASONE SOD PHOSPHATE 10 MG/ML 1 ML VIAL IV ONE; HYDROmorphone 1 MG/ML 1 ML SYRINGE IVP PRN; LACTATED RINGERS 1,000 ML IV SCH; LIDOCAINE 1% 20 ML VIAL (10MG/ML) FOR IV START INTRADERMA PRN; MIDAZOLAM 2 MG/2 ML VIAL IV PRN; ONDANSETRON 4 MG/2 ML VIAL IVP ONE; fentaNYL (PF) 50 MCG/ML 2 ML AMP IV PRN
[2018-07-05 06:37] LABS: Glucose,Whole Blood 156 mg/dL (75-99)
[2018-07-05] MEDS ORDERED: LIDOCAINE 1% INJ 10MG/ML (20 ML MDV) ONE (07:22)
[2018-07-05] MEDS ORDERED: PROPOFOL 10 MG/ML 20 ML VIAL IV ONE (07:22)
[2018-07-05] MEDS ORDERED: SUCCINYLCHOLINE CHLORIDE VIAL 200 MG/10 ML VIAL IV ONE (07:22)
[2018-07-05] MEDS ORDERED: fentaNYL (PF) 50 MCG/ML 2 ML AMP ONE (07:22)
[2018-07-05] MEDS ORDERED: ROPIVACAINE 5 MG/ML 30 ML VIAL ONE (07:22)
[2018-07-05] MEDS ORDERED: MIDAZOLAM 2 MG/2 ML VIAL ONE (07:22)
[2018-07-05] MEDS ORDERED: ePHEDrine SULFATE/0.9% NACL/PF 50 MG/5 ML SYRINGE IV ONE (07:22)
[2018-07-05] MEDS ORDERED: LACTATED RINGERS 1,000 ML IV ONE (08:25)
--- NOTE | 2018-07-05 08:25 | P.ONQ ---
Anesthesiology Proc Note - PNB - Peripheral Nerve Block Performed Left Interscalene Single Time Out Performed: Yes Procedure Start Time: 06:49 Procedure Stop Time: 06:58 Indication: Acute Post-Operative Pain, Requested by physician Specifically requested for management of pain by DrHarshad: Denton Venegas Sedation Type: Sedate with meaningful contact maintained Preparation: Sterile Prep Position: Supine Needle Types: Other (see comment) (Pujunk) Needle Gauge: 21 Technique: Ultrasound Injectate: 0.5% Ropivacaine (see comment for volume) (25 ml) Blood Aspirated: No Pain Paresthesia on Injection Noted: No Resistance on Injection: Normal Events: Uneventful and Well Tolerated
[2018-07-05 09:43] VITALS: TEMP 96.8
--- NOTE | 2018-07-05 09:48 | P.OP ---
Date of Procedure: 07/05/18 Preoperative Diagnosis: Left shoulder impingement Postoperative Diagnosis: 1. Left shoulder rotator cuff tear 2. Left shoulder impingement 3. Left shoulder acromioclavicular joint osteoarthritis 4. Left shoulder partial long head biceps tendon tear 5. Left shoulder superior labral tear Procedure(s) Performed: 1. Left shoulder arthroscopic rotator cuff repair 2. Left shoulder arthroscopic subacromial decompression 3. Left shoulder arthroscopic Grace procedure 4. Left shoulder arthroscopic biceps tenotomy 5. Left shoulder arthroscopic debridement labral tear Implants: 44.75 Arthrex swivel lock anchors Anesthesia: GETA, regional (Interscalene block) Surgeon: Denton Venegas Crabber #1: Moy Belcher Estimated Blood Loss (ml): 10 Pathology: none sent Condition: stable Disposition: PACU Indications for Procedure: 52-year-old patient seen with progressive left shoulder pain. After treatment options were discussed, he elected to proceed with arthroscopy. Operative Findings: See description of procedure Description of Procedure: Patient underwent an interscalene block by department of anesthesia for postoperative pain control. The patient was then taken to the operative suite. The patient underwent a general anesthetic by the department of anesthesia. The patient was placed into a lateral position and secured. There was appropriate padding of the bony prominence. Left shoulder was then prepped and draped in normal sterile orthopedic fashion. We placed the extremity in 10 pounds of longitudinal traction. A posterior incision was now made for a posterior working portal site. The trocar and cannula were inserted into the glenohumeral joint. Arthroscopy was initiated. Spinal needle was now inserted anteriorly, to ascertain the anterior working portal site. An incision was now made in that area, a trocar was inserted followed by a probe. There was some superficial tearing of the superior labrum. There was partial tearing long head biceps tendon. There was an obvious rotator cuff tear visualized from glenohumeral side. There were grade 1 chondromalacia changes of the glenohumeral joint with no osteochondral tears present. The remainder of the labrum was stable. I debrided that superficial labral tear getting down to stable labral tissue. I performed an arthroscopic biceps tenotomy. The residual labrum was probed and found to be stable. Instruments now removed from glenohumeral joint. Utilizing the posterior working portal site, the trocar and cannula were inserted into the subacromial space. Arthroscopy initiated. I made an incision 2 fingerbreadths lateral to the acromion. I introduced my trocar followed by my ArthroCare ablator. I now began ablating thick subacromial bursal tissue, which exposed the undersurface of the anterior acromion. There was diminished subacromial space. There was a very prominent anterior acromion. A motorized bur was introduced and a subacromial decompression was performed. I also excised some osteophytes off the inferior aspect of the distal clavicle. The AC joint was visualized and noted to be fairly arthritic. The motorized bur was introduced in the anterior portal site and a Grace procedure was performed without difficulty, decompressing the AC joint nicely. I turned my attention to the rotator cuff. There was a 2 cm rotator cuff tear. I debrided the margins getting down to stable tendon tissue. This was completed we had about a 2.5 cm defect. I introduced my motorized bur and abraded the footprint area, getting some petechial bleeding. I now made an accessory portal site off the lateral aspect of the acromion. I punched 2 holes medial for medial row fixation with the assistance of Fam EDWARDS carefully tapping the punch with a mallet as I held the punch and the camera. I now introduced both anchors into the pre- punched holes and Fam EDWARDS tapped them with the mallet as I held anchors and the camera. Fam EDWARDS now screwed the anchors in place a while I held the anchor guide and camera. All 8 limbs of suture were now passed through good bites of rotator cuff tendon. I now punched 2 holes for lateral row fixation again I held the punch and camera while Fam EDWARDS used a mallet to tap in the punch. We now passed sutures through both anchors and individually I introduced the anchors into the pre-punch holes I held the anchor guide in position with one hand holding the camera with the other hand while Fam EDWARDS tensioned the sutures and screwed in the anchors one at a time. All residual suture limbs were now clipped. We had good compression of the tendon along the entire footprint. I injected 1 mL of Renue intra- articular. Instruments now removed from the portal sites. All portal sites were approximated with nylon suture. Sterile dressings were applied followed by a shoulder immobilizer. Moy EDWARDS assisted in this complex case. The patient was awakened, transferred to a bed, and taken to recovery in stable condition.
[2018-07-05 09:50] LABS: Glucose,Whole Blood 173 mg/dL (75-99)
[2018-07-05 09:51] VITALS: RESP 16
[2018-07-05 11:27] VITALS: BP 165/91; PULSE 82
== END 2018-07-05 11:54 | disposition home or self-care (01) ==
LOC: OR 05:52
PROVIDERS: ATTEND Orthopaedic Surgery
DX: M75.102 Unspecified rotator cuff tear or rupture of left shoulder, not specified as traumatic (principal); M75.42 Impingement syndrome of left shoulder; M19.012 Primary osteoarthritis, left shoulder; S46.112A Strain of muscle, fascia and tendon of long head of biceps, left arm, initial encounter; S43.432A Superior glenoid labrum lesion of left shoulder, initial encounter; X58.XXXA Exposure to other specified factors, initial encounter; M25.712 Osteophyte, left shoulder; M94.212 Chondromalacia, left shoulder; I10 Essential (primary) hypertension; E03.9 Hypothyroidism, unspecified; M06.9 Rheumatoid arthritis, unspecified; J45.909 Unspecified asthma, uncomplicated; G47.33 Obstructive sleep apnea (adult) (pediatric); Z99.89 Dependence on other enabling machines and devices; E11.9 Type 2 diabetes mellitus without complications; Z79.84 Long term (current) use of oral hypoglycemic drugs; Z79.891 Long term (current) use of opiate analgesic; Z79.82 Long term (current) use of aspirin; Z79.890 Hormone replacement therapy; Z79.899 Other long term (current) drug therapy; Z91.09 Other allergy status, other than to drugs and biological substances
CPT/HCPCS: 64415; 29826; 29827; 29824; C1713 ×2; C1765; J2250; J0330; J1100; J2405; J2001; J3010; J2795; J2704

== ENCOUNTER 2019-07-10 07:59 | Day surgery (SDC) | payer MEDICARE ==
[2019-07-08 15:39] VITALS: BMI 33.2
--- NOTE | 2019-07-09 14:56 | HP ---
HISTORY AND PHYSICAL REASON FOR ADMISSION: Surgery is 07/10/2019 HISTORY OF PRESENT ILLNESS: Ye Montes is a 63-year-old patient seen with progressive left shoulder pain. We discussed options for treatment. He elected to proceed with arthroscopy. Consent was obtained. PAST MEDICAL HISTORY: Asthma, hypertension, hyperlipidemia, emh-[id number] diabetes. PAST SURGICAL HISTORY: Knee arthroscopy, shoulder arthroscopy. DAILY MEDICATIONS: 1. Advair. 2. Lotrel. 3. Synthroid. 4. Flomax. 5. Lipitor. 6. Metformin. 7. Xarelto. ALLERGIES: None. SOCIAL HISTORY: He denies current tobacco use. PHYSICAL EXAMINATION: Evaluation of the left shoulder: Flexion is 100 degrees, abduction is 100 degrees, external rotation is zero with some weakness. Tenderness along the anterolateral acromion and rotator cuff insertion site. Impingement is positive at 90. Drop arm sign is positive. Distal neurovascular exam is intact. RADIOGRAPHS: Radiographs of the left shoulder revealed a flat anterior acromion. MRI of left shoulder revealed rotator cuff tendon tear. IMPRESSION: 1. Left shoulder rotator cuff tear. 2. Hypertension. 3. Hypothyroidism. 4. Asthma. 5. Ghy-raouyqx-uitcognpj diabetes. PLAN: Left shoulder arthroscopy with rotator cuff repair. MMODL / IJN: [id number] /
[~2019-07-10 07:59] MED LIST changes: +HYDROmorphone 0.5 MG/0.5 ML SYRINGE IVP PRN; -HYDROmorphone 1 MG/ML 1 ML SYRINGE IVP PRN; +SCOPOLAMINE 1.5MG/72HR PATCH TRANSDERM ONE; -fentaNYL (PF) 50 MCG/ML 2 ML AMP IV PRN
[2019-07-10 08:26] LABS: Glucose,Whole Blood 96 mg/dL (75-99)
[2019-07-10] MEDS: fentaNYL (PF) 50 MCG/ML 2 ML AMP IV ONE ×2 (08:31→08:33)
[2019-07-10] MEDS ORDERED: LIDOCAINE 1% INJ 10MG/ML (20 ML MDV) ONE (08:54)
[2019-07-10] MEDS ORDERED: SUCCINYLCHOLINE CHLORIDE 100 MG/5 ML SYR IV ONE (08:54)
[2019-07-10] MEDS ORDERED: ePHEDrine SULFATE/0.9% NACL/PF 50 MG/5 ML SYRINGE IV ONE (08:54)
[2019-07-10] MEDS ORDERED: PHENYLEPHRINE-0.9% NACL SYG 1 MG/10 ML SYRINGE ONE (08:54)
[2019-07-10] MEDS ORDERED: LIDOCAINE 2%-EPI 1:100,000 20 ML VIAL ONE (08:54)
[2019-07-10] MEDS ORDERED: PROPOFOL 10 MG/ML 20 ML VIAL IV ONE (08:54)
[2019-07-10] MEDS ORDERED: ROPIVACAINE 5 MG/ML 30 ML VIAL ONE (08:54)
--- NOTE | 2019-07-10 09:00 | P.ANPRN ---
Procedure Note - Anesthesia - Nerve Block Performed Left Interscalene Infusion Time Out Performed: Yes ([id number]) Date of Procedure: 07/10/19 Procedure Start Time: Procedure Stop Time: :45 Location of Patient: PreOp Indication: Acute Post-Operative Pain, Dx/Pain Location, Requested by Surgeon Sedation Type: Sedate with meaningful contact maintained Preparation: Sterile Prep Position: Supine Catheter: Indwelling Needle Types: Pajunk Needle Gauge: 21 Ultrasound used to visualize needle placement: Yes Ultrasound used to observe medication spread: Yes Injectate: 0.5% Ropivacaine (see comment for volume) (10ml + 10ml 2% Lidocaine with 1:200,000 epi) Blood Aspirated: No Pain Paresthesia on Injection Noted: No Resistance on Injection: Normal Image Stored and Saved: Yes Events: Uneventful and Well Tolerated
[2019-07-10] MEDS ORDERED: ROPIVACAINE 0.2%-NS ON-Q PUMP 1,090 MG, EMPTY PAIN BALL 1 EACH MISCELLANE PRN (09:01)
[2019-07-10] MEDS ORDERED: LACTATED RINGERS 1,000 ML IV ONE (09:35)
--- NOTE | 2019-07-10 10:47 | P.OP ---
Date of Procedure: 07/10/19 Preoperative Diagnosis: Left shoulder rotator cuff tear Postoperative Diagnosis: 1. Left shoulder rotator cuff tear 2. Left shoulder impingement Procedure(s) Performed: 1. Left shoulder rotator cuff repair 2. Left shoulder arthroscopic subacromial decompression Implants: 44.75 Arthrex swivel lock anchors Anesthesia: GETA, regional (Interscalene block) Surgeon: Denton Venegas Sampling Theory Teacher #1: Moy Belcher Estimated Blood Loss (ml): 10 Pathology: none sent Condition: stable Disposition: PACU Indications for Procedure: 63-year-old patient seen with progressive left shoulder pain. After treatment options were discussed, he elected to proceed with arthroscopy. Operative Findings: See description of procedure Description of Procedure: Patient underwent an interscalene block by department of anesthesia for postoperative pain management. The patient was then taken to the operative suite. The patient underwent a general anesthetic by the department of anes thesia. The patient was placed into a lateral position and secured. There was appropriate padding of the bony prominence. Left shoulder was then prepped and draped in normal sterile orthopedic fashion. We placed the extremity in 10 pounds of longitudinal traction. A posterior incision was now made for a posterior working portal site. The trocar and cannula were inserted into the glenohumeral joint. Arthroscopy was initiated. Spinal needle was now inserted anteriorly, to ascertain the anterior working portal site. An incision was now made in that area, a trocar was inserted followed by a probe. The labrum was probed and was intact and stable. There were some grade 1 chondromalacia changes of the glenohumeral joint. The biceps tendon was absent. There was an obvious large rotator cuff tear visualized from glenohumeral side. Instruments were now removed from glenohumeral joint. Utilizing the posterior working portal site, the trocar and cannula were inserted into the subacromial space. Arthroscopy initiated. I made an incision 2 fingerbreadths lateral to the acromion. I introduced my trocar followed by my ArthroCare ablator. I now began ablating thick subacromial bursal tissue, which exposed the undersurface of the anterior acromion. There was diminished subacromial space. There was a spur along the anterior acromion.. A motorized bur was introduced and a subacromial decompression was performed. The AC joint was visualized and was noted be well decompressed. The motorized bur was introduced in the anterior portal site and a Grace procedure was performed without difficulty, decompressing the AC joint nicely. I turned my attention to the rotator cuff. There was a 2.53 cm rotator cuff recurrent tear. There was evidence of residual suture which at this point removed without difficulty. I could see the previous anchors. I did attempt to remove them put this was not possible given how long they have been implanted as they we can crumbling. I debrided the margins getting down to stable tendon tissue. I introduced my motorized bur and abraded the footprint area, getting some petechial bleeding. I now made an accessory portal site off the lateral aspect of the acromion. I punched 2 holes medial for medial row fixation with the assistance of Fam EDWARDS carefully tapping the punch with a mallet as I held the punch and the camera. I now introduced both anchors into the pre-punched holes and Fam EDWARDS tapped them with the mallet as I held anchors and the camera. Fam EDWARDS now screwed the anchors in place a while I held the anchor guide and camera. All 8 limbs of suture were now passed through good bites of rotator cuff tendon. I now punched 2 holes for lateral row fixation again I held the punch and camera while Fam EDWARDS used a mallet to tap in the punch. We now passed sutures through both anchors and individually I introduced the anchors into the pre-punch holes I held the anchor guide in position with one hand hold ing the camera with the other hand while Fma EDWARDS tensioned the sutures and screwed in the anchors one at a time. All residual suture limbs were now clipped. We had good compression of the tendon along the entire footprint. I injected 1 mL Renyte intra-articular. Instruments now removed from the portal sites. All portal sites were approximated with nylon suture. Sterile dressings were applied followed by a shoulder immobilizer. Moy EDWARDS assisted in this complex case. The patient was awakened, transferred to a bed, and taken to recovery in stable condition.
[2019-07-10 11:17] VITALS: TEMP 97
[2019-07-10 12:08] VITALS: RESP 17
[2019-07-10] MEDS ORDERED: HYDROcodone/APAP 7.5-325MG 1 EACH TAB PO ONE (12:11)
[2019-07-10 12:42] VITALS: BP 139/79; PULSE 73
== END 2019-07-10 13:01 | disposition home or self-care (01) ==
LOC: OR 07:59
PROVIDERS: ATTEND Orthopaedic Surgery
DX: M75.102 Unspecified rotator cuff tear or rupture of left shoulder, not specified as traumatic (principal); M75.42 Impingement syndrome of left shoulder; M94.212 Chondromalacia, left shoulder; I10 Essential (primary) hypertension; E03.9 Hypothyroidism, unspecified; J45.909 Unspecified asthma, uncomplicated; E11.9 Type 2 diabetes mellitus without complications; E78.5 Hyperlipidemia, unspecified; Z79.01 Long term (current) use of anticoagulants; Z79.84 Long term (current) use of oral hypoglycemic drugs; Z79.890 Hormone replacement therapy; Z79.51 Long term (current) use of inhaled steroids; Z79.899 Other long term (current) drug therapy; I48.91 Unspecified atrial fibrillation; G47.33 Obstructive sleep apnea (adult) (pediatric); Z99.89 Dependence on other enabling machines and devices; Z98.1 Arthrodesis status; Z98.42 Cataract extraction status, left eye; Z98.41 Cataract extraction status, right eye; Z79.891 Long term (current) use of opiate analgesic
CPT/HCPCS: 29826; 29827; 64415; C1713 ×2; Q4212; J2250; J1100; J0690; J2405; J2001; J3010; J2795 ×2; J2370; J0330; J2704

== ENCOUNTER → 2019-08-15 | Outpatient (CLI) | payer MEDICARE ==
--- NOTE | 2019-08-15 14:57 | SFUN ---
SLEEP CENTER FOLLOW UP NOTE DATE OF SERVICE: 08/15/2019 A 63-year-old gentleman who has been followed in the Sleep Center for treatment of obstructive sleep apnea-hypopnea syndrome. The patient continued to use CPAP equipment every night for the whole night. Occasionally may have some episodes of snoring according to his . He is getting all his CPAP supplies on time. [place] Sleepiness Scale today is 12. I checked his CPAP unit, CPAP pressure is 14 cm of water. Patient using equipment 100% of time more than 4 hours with average usage 8.3 hours per night. Leak is 28 L/minute. Apnea-hypopnea index 1.1 only, which is perfect. MEDICATIONS: Ibuprofen, Advair, Lotrel, baby aspirin, Wellbutrin, Diclofenac, Flomax, Flonase, Janumet, Synthroid, Lipitor, metformin, oxybutynin, Enbrel for rheumatoid arthritis. PHYSICAL EXAM: Patient in no distress, BP 160/82, HR 78, RR 16, height 5 feet 10-3/4, weight 271.2 pounds, which is 15 pounds less than during last visit one year ago. Oxygen saturation at room air 96%. Temp is 98.1. OROPHARYNX: Extremely low position of soft palate, Mallampati 4. ABDOMEN: Obese. NECK: Supple, no JVD. Thyroid is not palpable. LUNGS: Clear to percussion and to auscultation. Good air exchange. No wheezing or rhonchi. HEART: S1, S2 regular. No murmurs, gallops, or rubs. EXTREMITIES: No clubbing or cyanosis. [place] CORK SLABS: Awake, alert, and oriented X3. Cranial nerves 2 to 7 intact. There is no fasciculation or atrophy. noted. No focal deficits observed. IMPRESSION: 1. Obstructive sleep apnea-hypopnea syndrome. Patient demonstrated 100% compliance with treatment, benefitting from treatment. 2. Patient is using nasal mask, slightly high leak from the machine. 3. Obesity. Patient lost about 15 pounds since last visit. 4. History of asthma. 5. Depression. 6. History of ADD. 7. Nasal septum deviation. 8. History of sciatic nerve problems. 9. Hypothyroidism. 10.Benign prostatic hypertrophy. 11.Status post tonsillectomy. 12.Status post surgical treatment for carpal tunnel syndrome. 13.History of rheumatoid arthritis. PLAN: 1. Patient will continue to use CPAP equipment with a pressure of 14 cm of water. 2. Continue losing weight. 3. I will maintain all prescription for all necessary CPAP supplies including mask which is a Mirage FX wide heated tube filters. 4. No driving if feeling sleepiness. 5. Followup visit in 1 year or earlier if patient has any problems. Thank you very much for allowing me to participate in the management of your patient. Sincerely, Jluis Schmitt MD, PhD, FAASM Diplomat of [place] [employer] [place] [employer] Surveyor Rod Helper of [facility] [place] MMODL / IJN: [id number] /
== END | disposition home or self-care (01) ==
LOC: SLEEP 13:37
PROVIDERS: ATTEND Internal Medicine
DX: G47.33 Obstructive sleep apnea (adult) (pediatric) (principal); E66.9 Obesity, unspecified; F32.9 Major depressive disorder, single episode, unspecified; J34.2 Deviated nasal septum; E03.9 Hypothyroidism, unspecified; N40.0 Benign prostatic hyperplasia without lower urinary tract symptoms; Z87.09 Personal history of other diseases of the respiratory system; Z86.59 Personal history of other mental and behavioral disorders; Z86.69 Personal history of other diseases of the nervous system and sense organs; Z87.39 Personal history of other diseases of the musculoskeletal system and connective tissue; Z98.890 Other specified postprocedural states; Z99.89 Dependence on other enabling machines and devices; Z79.82 Long term (current) use of aspirin; Z79.1 Long term (current) use of non-steroidal anti-inflammatories (NSAID); Z79.84 Long term (current) use of oral hypoglycemic drugs; Z79.899 Other long term (current) drug therapy

== ENCOUNTER → 2019-10-22 | Outpatient (CLI) | payer MEDICARE | END | disposition home or self-care (01) | LOC: LABPAT 13:42 | PROVIDERS: ATTEND Orthopaedic Surgery | DX: Z01.812 Encounter for preprocedural laboratory examination (principal) | CPT/HCPCS: 87070 ==

== ENCOUNTER → 2020-05-04 | Outpatient (CLI) | payer MEDICARE ==
[2020-05-04 12:21] LABS: Basophils # (A) 0.1 k/uL (0-0.2); Basophils % (A) 1 %; Eosinophils # (A) 0.2 k/uL (0-0.7); Eosinophils % (A) 2 %; HCT 42.5 % (39.0-53.0); HGB 13.6 gm/dL (13.0-17.5); Lymphocytes # (A) 1.7 k/uL (1.0-4.8); Lymphocytes % (A) 16 %; MCH 28.6 pg (25.0-35.0); MCV 89.3 fL (80.0-100.0); Mean Platelet Volume 8.9; Monocytes # (A) 0.7 k/uL (0-1.0); Monocytes % (A) 6 %; Neutrophils # (A) 7.3 k/uL (1.3-7.7); Neutrophils % (A) 71 %; Platelet Count 200 k/uL (150-450); RBC 4.76 m/uL (4.30-5.90); RDW 13.7 % (11.5-15.5); WBC 10.3 k/uL (3.8-10.6)
[2020-05-04 12:29] LABS: Prothrombin Time 10.6 sec (9.0-12.0)
[2020-05-04 12:33] LABS: ALT 48 U/L (4-49); AST 33 U/L (17-59); African American GFR (CKD) >90 (>60 ml/min/1.73 sqM); Albumin 4.2 g/dL (3.5-5.0); Alkaline Phosphatase 121 U/L (38-126); Anion Gap 8 mmol/L; Blood Urea Nitrogen 18 mg/dL (9-20); Calcium 9.4 mg/dL (8.4-10.2); Carbon Dioxide 32 mmol/L (22-30); Chloride 100 mmol/L (98-107); Cholesterol 119 mg/dL (<200); Glucose 210 mg/dL (74-99); HDL Cholesterol 48 mg/dL (40-60); LDL Cholesterol,Calculated 57 mg/dL (0-99); Non-African American GFR(CKD) >90 (>60 ml/min/1.73 sqM); Potassium 4.1 mmol/L (3.5-5.1); Sodium 140 mmol/L (137-145); Total Bilirubin 0.5 mg/dL (0.2-1.3); Total Protein 6.9 g/dL (6.3-8.2); Triglycerides 71 mg/dL (<150)
[2020-05-04 19:38] LABS: Hemoglobin A1C 8.1 % (4.0-6.0)
[2020-05-04 20:24] LABS: Prostate Specific Antigen 0.4 ng/mL (0.0-4.5)
== END | disposition home or self-care (01) ==
LOC: LABPAT 10:32
PROVIDERS: ATTEND Family Medicine
DX: Z01.818 Encounter for other preprocedural examination (principal); E78.00 Pure hypercholesterolemia, unspecified; E55.9 Vitamin D deficiency, unspecified; E11.21 Type 2 diabetes mellitus with diabetic nephropathy; M15.8 Other polyosteoarthritis; N40.1 Benign prostatic hyperplasia with lower urinary tract symptoms; R97.20 Elevated prostate specific antigen [PSA]
CPT/HCPCS: 80053; 80061; 82306; 83036; 84153; 84443; 85025; 85610; 93005

== ENCOUNTER → 2020-05-15 | Outpatient (CLI) | payer MEDICARE | END | disposition home or self-care (01) | LOC: LABWHC1 07:58 | PROVIDERS: ATTEND Orthopaedic Surgery | DX: Z01.812 Encounter for preprocedural laboratory examination (principal) | CPT/HCPCS: 87070 ==

== ENCOUNTER 2020-05-18 13:52 | Day surgery (SDC) | payer MEDICARE ==
[2020-05-14 11:31] VITALS: BMI 37.1
--- NOTE | 2020-05-17 09:57 | HP ---
HISTORY AND PHYSICAL REASON FOR ADMISSION: Surgery is scheduled for 05/18/2020. Ye Montes is a 64-year-old patient seen with progressive right knee pain. We discussed options for treatment. He elected to proceed with right total knee arthroplasty. Consent regarding the procedure was obtained. Medical clearance was provided by Dr. Eliza Davenport. PAST MEDICAL HISTORY: Hypertension, hypothyroidism, hyperlipidemia, [id number] diabetes. PAST SURGICAL HISTORY: Bilateral knee arthroscopy, left shoulder arthroscopy. MEDICATIONS: Advair, Lotrel, Synthroid, Flomax, Lipitor, metformin, Xarelto. ALLERGIES: None. SOCIAL HISTORY: Denies current tobacco use. PHYSICAL EXAMINATION: Evaluation of the right knee range of motion is -2/3-115. Tenderness along the medial joint line. Crepitus along the medial patellofemoral compartments with range of motion. Pain with patellofemoral compression. Ligaments are stable. Hip rotation is without pain. His distal neurovascular exam is intact. RADIOGRAPHS: Radiographs of the right knee reveal severe osteoarthritic changes. IMPRESSION: 1. Right knee osteoarthritis. 2. Hypertension. 3. Hyperlipidemia. 4. Hypothyroidism. PLAN: Right total knee arthroplasty. Surgery scheduled for 05/18/2020. MMODL / IJN: [id number] /
[~2020-05-18 13:52] MED LIST changes: +ACETAMINOPHEN TAB 500 MG TAB PO ONE; -LACTATED RINGERS 1,000 ML IV SCH; -LIDOCAINE 1% 20 ML VIAL (10MG/ML) FOR IV START INTRADERMA PRN; +MELOXICAM 7.5 MG TAB PO ONE; -MIDAZOLAM 2 MG/2 ML VIAL IV PRN; +MORPHINE SULFATE 2 MG/ML SYRINGE IV PRN; +ROPIVACAINE 246.25 MG, EPINEPHrine 0.5 MG, KETOROLAC 30 MG, cloNIDine HCL/PF 80 MCG, WA... MISCELLANE ONE; +TRANEXAMIC ACID 1,000 MG in SODIUM CHLORIDE 0.9% 100 ML IVPB ONE; +ceFAZolin 3 GM in SODIUM CHLORIDE 0.9% 100 ML IVPB ONE; +fentaNYL (PF) 50 MCG/ML 2 ML AMP IV PRN
[2020-05-18] MEDS: LACTATED RINGERS 1,000 ML IV SCH ×2 (14:40→19:49)
[2020-05-18 14:43] LABS: Glucose,Whole Blood 156 mg/dL (75-99)
[2020-05-18] MEDS ORDERED: LIDOCAINE 1% (10MG/ML) FOR IV START INTRADERMA ONE (14:43)
[2020-05-18] MEDS ORDERED: fentaNYL (PF) 50 MCG/ML 2 ML AMP IV ONE (14:46)
[2020-05-18] MEDS ORDERED: MIDAZOLAM 2 MG/2 ML VIAL IV ONE (14:46)
[2020-05-18] MEDS ORDERED: SODIUM CHLORIDE 0.9% 100 ML BAG ONE (15:18)
[2020-05-18] MEDS ORDERED: fentaNYL (PF) 50 MCG/ML 2 ML AMP ONE (15:18)
[2020-05-18] MEDS ORDERED: ePHEDrine SULFATE/0.9% NACL/PF 50 MG/5 ML SYRINGE IV ONE (15:18)
[2020-05-18] MEDS ORDERED: TRANEXAMIC ACID 1,000 MG/10 ML VIAL ONE (15:18)
[2020-05-18] MEDS ORDERED: MIDAZOLAM 2 MG/2 ML VIAL ONE (15:18)
[2020-05-18] MEDS ORDERED: PROPOFOL 10 MG/ML 20 ML VIAL IV ONE (15:18)
[2020-05-18] MEDS ORDERED: KETAMINE 10 MG/ML 20 ML VIAL ONE (15:18)
[2020-05-18] MEDS ORDERED: ROPIVACAINE 0.2%-NS ON-Q PUMP 1,090 MG, EMPTY PAIN BALL 1 EACH MISCELLANE PRN (17:04)
[2020-05-18] MEDS ORDERED: HYDROmorphone 1 MG/ML 1 ML SYRINGE IVP PRN (17:05)
[2020-05-18] MEDS ORDERED: HYDROmorphone 0.5 MG/0.5 ML SYRINGE IVP PRN ×2 (17:05)
[2020-05-18] MEDS ORDERED: ONDANSETRON 4 MG/2 ML VIAL IVP PRN (17:05)
[2020-05-18] MEDS ORDERED: HYDROcodone/APAP 5-325MG 1 EACH TAB PO PRN (17:05)
[2020-05-18] MEDS ORDERED: NALOXONE 0.4 MG/ML 1 ML VIAL IV PRN (17:05)
--- NOTE | 2020-05-18 17:05 | P.OP ---
Date of Procedure: 05/18/20 Preoperative Diagnosis: Right knee osteoarthritis Postoperative Diagnosis: Right knee osteoarthritis Procedure(s) Performed: Right total knee arthroplasty Implants: 1. Depuy attune size 8 right cruciate retaining cemented femur 2. Depuy attune size 8 fixed bearing cemented tibial baseplate 3. Depuy attune size 8 fixed bearing cruciate retaining 12 mm polythene tibial insert 4. Depuy attune 41 mm all polyethylene cemented patella Anesthesia: GETA, regional (Adductor canal catheter), local, spinal Surgeon: Denton Venegas Instrument Lens Grinder #1: Moy Belcher Estimated Blood Loss (ml): 50 Pathology: other Condition: stable Disposition: PACU Indications for Procedure: 64-year-old patient seen with symptomatic right knee osteoarthritis. After treatment options were discussed, he elected to proceed with total knee arthro plasty. Operative Findings: See description of procedure Description of Procedure: Patient was taken to the operative suite after having an adductor canal catheter placed by the department of anesthesia. Patient underwent a spinal anesthetic by the department of anesthesia. Patient was given preoperative IV intake antibiotics and TXA. A well-padded tourniquet was placed about the right lower extremity. The lower extremity was then prepped and draped in the normal sterile orthopedic fashion. The extremity was elevated, a tourniquet was in sufflated to 300. A standard anterior incision was made sharply through skin. Dissection was taken down through the subcutaneous soft tissues down to the extensor mechanism. At this point the patient although didn't seem to be feeling any of the surgery was still moving his leg. He now was converted to a general anesthetic by the department of anesthesia. A medial arthrotomy was performed, patella was everted and knee was flexed. There was advanced osteoarthritis noted. I introduced my distal intramedullary femoral drill. I then introduced the distal femoral cutting jig. Fam EDWARDS secured the cutting jig with 2 pins. I held retractors in position while Fam EDWARDS performed the distal femoral resection through the guide area we now removed her distal femoral cutting guide. We now placed our 4-in-1 femoral cutting block and positioned and it was secured with 2 pins by Fam EDWARDS while I held the block in position. The distal femoral finishing was now completed. A proximal tibial cutting guide was positioned. I held the guide in the appropriate position with both hands well Fam EDWARDS inserted stabilizing pins into the guide. Proximal tibial cut was made. We now placed a trial femoral component into position, along with an appropriate size tibial tray and insert. We now took the knee through range of motion and had full extension good flexion and g ood overall soft tissue balance noted. The patella was everted and stabilized with 2 towel clips held by Fam EDWARDS while I performed a flush with patellar quad tendon utilizing a fresh sawblade. We templated the patella, appropriate drill holes were made. An appropriate trial patella was positioned, knee was taken through full range of motion with the patella tracking very nicely. The trial patella was removed. Drill holes were made through the femoral component. All trial components were removed after marking off the appropriate rotation of the tibia. Retractors were now positioned along the proximal tibia. An appropriate keel punch was made with the appropriate size tibial guide by myself on Fam EDWARDS assisted by holding retractors. At this point appropriate size implants were chosen and opened. The joint was irrigated copiously with pulse lavage mechanical irrigation. The posterior capsule was infiltrated with local analgesic. The wound was irrigated with pulse lavage mechanical irrigation. We mixed antibiotic methylmethacrylate. We placed the knee into flexion. We placed multiple retractors assisted by Fam EDWARDS to expose the proximal tibia. Once the methyl methacrylate was ready, the tibial component was cemented into place removing any excess methylmethacrylate form by both myself and Fam EDWARDS. The femoral component was cemented into place removing the removing any excess methylmethacrylate performed by both myself and Fam EDWARDS. We then inserted the appropriate size polyethylene tibial insert. We made sure that it was locked into position. We took the knee into full extension, and then back in a flexion making sure we had removed any excess methylmethacrylate. The patellar component was then cemented down and secured with clamp. Excess methylmethacrylate removed. We kept the knee in full extension, patellar clamp in position until methylmethacrylate had hardened. Once it had hardened the patellar clamp was removed. The knee was taken through full range of motion. The patella tracked nicely. There was good soft tissue balancing. The tourniquet was now released. Additional hemostasis was achieved via el ectrocautery. A second gram of TXA was given. The wound again was irrigated with pulse lavage mechanical irrigation. The superficial soft tissues were infiltrated local analgesic. The extensor mechanism was repaired with Vicryl. We checked the repair with range of motion and it was stable. The subcutaneous soft tissues were repaired with Vicryl in layers. The skin was approximated with pernio/Dermabond. Sterile dressings were applied followed by loose web roll and Justin bandage. The patient was transferred to a bed, and taken to recovery in stable and satisfactory condition. Fam EDWARDS assisted with this complex procedure.
--- NOTE | 2020-05-18 17:05 | P.ANPRN ---
Procedure Note - Anesthesia - Nerve Block Performed Right Adductor Canal Infusion Time Out Performed: Yes (1445) Date of Procedure: 05/18/20 Procedure Start Time: 14:46 Procedure Stop Time: 14:51 Location of Patient: PreOp Indication: Acute Post-Operative Pain, Requested by Surgeon Specifically requested for management of pain by DrHarshad: Denton Venegas Sedation Type: Sedate with meaningful contact maintained Preparation: Sterile Prep Position: Supine Catheter Depth at Skin (cm): 10 Catheter: Indwelling Needle Types: Pajunk Needle Gauge: 21 Ultrasound used to visualize needle placement: Yes Ultrasound used to observe medication spread: Yes Injectate: 0.5% Ropivacaine (see comment for volume) (20cc) Blood Aspirated: No Pain Paresthesia on Injection Noted: No Resistance on Injection: Normal Image Stored and Saved: Yes Events: Uneventful and Well Tolerated
[2020-05-18] MEDS ORDERED: LACTATED RINGERS 1,000 ML IV ONE (17:16)
--- NOTE | 2020-05-18 18:15 | XR ---
EXAMINATION TYPE: XR knee limited RT DATE OF EXAM: 05/18/2020 COMPARISON: NONE HISTORY: Postop TECHNIQUE: 2 views FINDINGS: There is right knee prosthesis. Components are in anatomic position. IMPRESSION: No complicating process seen.
[2020-05-18] MEDS ORDERED: DICLOFENAC SODIUM GEL 100 GM TUBE TOPICAL PRN (20:26)
[2020-05-18] MEDS: HYDROcodone/APAP 5-325MG 1 EACH TAB PO PRN (20:38)
[2020-05-18 20:39] LABS: Glucose,Whole Blood 210 mg/dL (75-99)
[2020-05-18] MEDS ORDERED: OXYBUTYNIN CHLORIDE 5 MG TAB PO SCH (21:00)
[2020-05-18] MEDS ORDERED: ATORVASTATIN 40 MG TAB PO SCH (21:00)
[2020-05-18] MEDS: INSULIN ASPART (NovoLOG) 100 UNIT/ML VIAL SQ SCH (21:38)
[2020-05-18] MEDS: TAMSULOSIN 0.4 MG CAP.ER.24H PO SCH (21:39)
[2020-05-18] MEDS: ceFAZolin 3 GM in SODIUM CHLORIDE 0.9% 100 ML IVPB SCH (23:13)
[2020-05-19] MEDS: HYDROcodone/APAP 5-325MG 1 EACH TAB PO PRN ×2 (02:26→09:11)
[2020-05-19] MEDS: LACTATED RINGERS 1,000 ML IV SCH ×2 (05:26→08:01)
[2020-05-19] MEDS ORDERED: ENOXAPARIN 30 MG/0.3 ML SYRINGE SQ SCH (06:00)
[2020-05-19] MEDS ORDERED: LEVOTHYROXINE 75 MCG TAB PO SCH (06:30)
--- NOTE | 2020-05-19 06:36 | P.PN ---
Progress Note - Text Progress Note Date: 05/19/20 (464) Anesthesiology Postop day 1 status post total knee arthroplasty with adductor canal catheter. Patient doing well. VAS 1 out of 10. Rest able. Gross strength intact in lower extremity. Afebrile. Denies alterations in sensorium. Catheter site intact. Heart regular rate Lungs nonlabored Abdomen nondistended Assessment: Postop day 1 status post total knee arthroplasty with adductor canal catheter Plan: All questions answered. Maintain catheter 2 more days with patient r emoval at home. Instructions were given at discharge.
[2020-05-19 06:41] LABS: Glucose,Whole Blood 168 mg/dL (75-99)
[2020-05-19 07:20] VITALS: BP 147/75; PULSE 78; RESP 18; TEMP 98
[2020-05-19] MEDS ORDERED: metFORMIN 500 MG TAB PO SCH ×2 (07:30→17:30)
[2020-05-19 07:32] LABS: Basophils % (A) 0 %; Eosinophils # (A) 0.1 k/uL (0-0.7); Eosinophils % (A) 0 %; HCT 38.1 % (39.0-53.0); HGB 12.2 gm/dL (13.0-17.5); Lymphocytes # (A) 1.9 k/uL (1.0-4.8); Lymphocytes % (A) 12 %; MCH 28.4 pg (25.0-35.0); MCV 88.7 fL (80.0-100.0); Mean Platelet Volume 8.6; Monocytes # (A) 1.1 k/uL (0-1.0); Monocytes % (A) 7 %; Neutrophils # (A) 12.9 k/uL (1.3-7.7); Neutrophils % (A) 80 %; Platelet Count 204 k/uL (150-450); RDW 13.9 % (11.5-15.5); WBC 16.2 k/uL (3.8-10.6)
[2020-05-19] MEDS ORDERED: SYMBICORT 80-4.5 MCG INHALER INHALATION SCH (08:00)
[2020-05-19] MEDS: INSULIN ASPART (NovoLOG) 100 UNIT/ML VIAL SQ SCH ×2 (08:02→13:06)
[2020-05-19] MEDS: ceFAZolin 3 GM in SODIUM CHLORIDE 0.9% 100 ML IVPB SCH (08:02)
[2020-05-19] MEDS: TAMSULOSIN 0.4 MG CAP.ER.24H PO SCH (08:03)
[2020-05-19] MEDS ORDERED: MELOXICAM 7.5 MG TAB PO SCH (09:00)
[2020-05-19] MEDS ORDERED: lisinopriL 10 MG TAB PO SCH (09:00)
[2020-05-19] MEDS ORDERED: DULoxetine HCL 30 MG CAPSULE.DR PO SCH (09:00)
[2020-05-19] MEDS ORDERED: ASPIRIN 81 MG PO SCH (09:00)
[2020-05-19] MEDS ORDERED: amLODIPine 5 MG TAB PO SCH (09:00)
[2020-05-19] MEDS ORDERED: buPROPion XL 300 MG TAB.ER.24H PO SCH (09:00)
[2020-05-19] MEDS ORDERED: BISOPROLOL-HCTZ 10-6.25 MG 1 EACH TAB PO SCH (09:00)
[2020-05-19] MEDS ORDERED: FLUTICASONE 50MCG/SPRAY NASAL 16GM EA NOSTRIL SCH (09:00)
[2020-05-19 11:28] LABS: Glucose,Whole Blood 166 mg/dL (75-99)
[2020-05-19 11:32] LABS: African American GFR (CKD) 90.5 (60.0-200.0); Albumin 3.7 g/dL (3.80-4.90); Albumin/Globulin Ratio 2.47 (1.60-3.17); Anion Gap 7.9 mmol/L (4.00-12.00); Calcium 8.8 mg/dL (8.7-10.3); Carbon Dioxide 30.1 mmol/L (21.6-31.8); Globulin 1.5 g/dL (1.6-3.3); Non-African American GFR(CKD) 78.1 (60.0-200.0); Potassium 3.9 mmol/L (3.5-5.5); Total Bilirubin 0.5 mg/dL (0.2-1.2); Total Protein 5.2 g/dL (6.2-8.2)
--- NOTE | 2020-05-19 12:04 | P.PN ---
Subjective Progress Note Date: 05/19/20 Principal diagnosis: Status post right total knee arthroplasty Patient evaluated at bedside, he is resting comfortably. He did very well with physical therapy. Pain is well-controlled, denies any chest pain or shortness of breath. Objective - Vital Signs Vital signs: Vital Signs Temp 98.0 F 05/19/20 07:00 Pulse 78 05/19/20 07:00 Resp 18 05/19/20 07:00 BP 147/75 05/19/20 07:00 Pulse Ox 93 L 05/19/20 07:00 Intake & Output 05/18/20 05/19/20 05/19/20 18:59 06:59 18:59 Intake Total 1100 1100 Output Total 50 Balance 1050 1100 Weight 125 kg 125 kg Intake: IV 1100 500 Intake, IV Titration 200 Amount Lactated Ringers 1,000 ml 200 @ 100 mls/hr IV .Q10H SUKUMAR Rx#:[id number] Oral 400 Output: Estimated Blood Loss 50 Other: Voiding Method Toilet Toilet # Voids 4 - Exam Right lower extremity: Incision is clean, dry, and intact. The foam dressing is in good condition. There is minimal soft tissue swelling and ecchymosis surrounding the medial and lateral aspects of the incision. Calf is soft, no tenderness with palpation. Plantar flexion, dorsiflexion, EHL, FHL are intact. Sensory exam to light touch throughout the extremity is intact, dorsal pedis pulses 2+. - Labs CBC & Chem 7: 05/19/20 06:37 05/19/20 06:37 Labs: Abnormal Lab Results - Last 24 Hours (Table) 05/18/20 05/18/20 05/19/20 Range/Units 14:39 20:37 06:37 WBC 16.2 H (3.8-10.6) k/uL Hgb 12.2 L (13.0-17.5) gm/dL Hct 38.1 L (39.0-53.0) % Neutrophils # 12.9 H (1.3-7.7) k/uL Monocytes # 1.1 H (0-1.0) k/uL BUN/Creatinine Ratio (12.00-20.00) Ratio Glucose (70-110) mg/dL POC Glucose (mg/dL) 156 H 210 H (75-99) mg/dL Total Protein (6.2-8.2) g/dL Albumin (3.80-4.90) g/dL Globulin (1.6-3.3) g/dL 05/19/20 05/19/20 05/19/20 Range/Units 06:37 06:40 11:28 WBC (3.8-10.6) k/uL Hgb (13.0-17.5) gm/dL Hct (39.0-53.0) % Neutrophils # (1.3-7.7) k/uL Monocytes # (0-1.0) k/uL BUN/Creatinine Ratio 23.00 H (12.00-20.00) Ratio Glucose 163 H (70-110) mg/dL POC Glucose (mg/dL) 168 H 166 H (75-99) mg/dL Total Protein 5.2 L (6.2-8.2) g/dL Albumin 3.70 L (3.80-4.90) g/dL Globulin 1.5 L (1.6-3.3) g/dL Assessment and Plan Assessment: Status post right total knee arthroplasty Plan: Pain control, plan for discharge home on oral medication GI and DVT prophylaxis, patient will resume Xarelto today Wound care discussed Home therapy and nursing of discharge Medical recommendations Discharge home today Time with Patient: Less than 30
--- NOTE | 2020-05-19 12:07 | P.DS ---
Providers Date of admission: 05/18/2020 Expected date of discharge: 05/19/20 Attending physician: Denton Venegas Primary care physician: Eliza Davenport Hospital Course: Date of admission: 05/18/2020 Date of discharge: 05/19/2020 Admission diagnosis: Status post right total knee arthroplasty Discharge diagnosis: Same Attending physician: Dr. Venegas Surgical procedures: Right total knee arthroplasty Brief history: Patient is a 64-year-old male with a history of progressive primary right knee osteoarthritis. At this point patient has failed conservative treatment measures and has opted to proceed with a elective right total knee arthroplasty. Hospital course: Details of patient's surgery can be found in operative report. Patient tolerated the procedure well and was subsequently transported to orthopedic floor. Patient's orthopeidc and medical care was provided daily. Patient had daily laboratory tests performed for evaluation of overall blood counts . Patient had daily physical therapy to include strengthening range of motion as well as education with walker ambulation. Patient was treated with Xarelto for their postoperative DVT prophylaxis during their inpatient stay. Patient was noted to have a relatively uneventful postoperative course. Patient reported satisfactory pain control with oral pain medications by postoperative day0]. Patient showed satisfactory progress with physical therapy. Patient moved steadily through the program and had no difficulty meeting the goals by postoperative day 1. Given patient's otherwise satisfactory course and having met physical therapy goals, plan is to discharge patient home on postoperative day 1. Discharge condition/disposition: Patient will be discharged home in stable condition. Discharge medications: Instructions are given on resumption of patient's normal daily medications per primary care recommendation, in addition patient will be prescribed [place] 5 mg/325 mg, Colace 100 mg. Discharge instructions: 1. Wound care and infection precautions, keep incision dry and covered while showering, no lotions, creams, moisturizers. No soaking, tubs, pools, hottubs. Do not scrub over the incision. Okay to remove foam dressing on 05/27/2020 2. Weight-bear as tolerated with walker / cane until follow-up. 3. Ice and elevate when necessary. Do not exceed 20 minutes per hour with ice pack. 4. Utilize compression sleeve until seen at first follow up appointment. 5. Visiting nursing care. 6. Home physical therapy including home CPM. 7. Pain meds and anticoagulants per prescription. 8. Pain medication has potential to cause constipation. Increase oral fluid and fiber intake. Contact primary care provider if you have not had a bowel movement within 48 hours after discharge 9. No anti-inflammatory medication until discussed at first post operative visit, this including Motrin, Aleve, Mobic, Diclofenac 10. Follow up in office at 2 weeks postop with Fam Belcher PA-C 11. Follow up with your primary care doctor 7-10 days after discharge. 12. Contact [facility] with any questions, . Procedures: Right total knee arthroplasty Patient Condition at Discharge: Good Plan - Discharge Summary Discharge Rx Participant: Yes New Discharge Prescriptions: New Docusate [Colace] 100 mg PO DAILY #30 capsule Hydrocodone/Acetaminophen [[place] 5-325] 1 - 2 each PO Q6HR PRN #56 tab PRN Reason: Pain No Action Fluticasone/Salmeterol [Advair 250-50 Diskus] 1 puff INHALATION DAILY Oxybutynin Chloride 5 mg PO HS buPROPion XL [Wellbutrin Xl] 300 mg PO QAM DULoxetine HCL [Cymbalta] 30 mg PO QAM Bisoprolol-Hctz 10-6.25 mg [Ziac 10-6.25] 1 tab PO QAM Levothyroxine Sodium [Synthroid] 150 mcg PO QAM Ergocalciferol (Vitamin D2) [Vitamin D2] 50,000 unit PO FR Aspirin [Adult Low Dose Aspirin EC] 81 mg PO DAILY Etanercept [Enbrel] 50 mg SQ CARR sitaGLIPtin PHOS/metFORMIN HCL [Janumet Xr 100-1,000 mg Tablet] 1 each PO W/SUPPER amLODIPine BESYLATE/BENAZEPRIL [amLODIPine BESYLATE/BENAZEPRIL 5-10 mg] 1 cap PO QAM metFORMIN HCL [Glucophage] 500 mg PO W/BRKFST Tamsulosin HCl [Flomax] 0.4 mg PO BID Fluticasone Nasal Cassel [Flonase Nasal Cassel] 1 spray EA NOSTRIL DAILY Rivaroxaban [Xarelto] 20 mg PO DAILY Atorvastatin [Lipitor] 40 mg PO HS Diclofenac Sodium Gel [Voltaren Gel] 2 gm TOPICAL QID PRN PRN Reason: Pain Diclofen/Gabapentin/Lidocaine TOPICAL HS Discharge Medication List Aspirin [Adult Low Dose Aspirin EC] 81 mg PO DAILY 07/24/17 [History] Bisoprolol-Hctz 10-6.25 mg [Ziac 10-6.25] 1 tab PO QAM 07/24/17 [History] DULoxetine HCL [Cymbalta] 30 mg PO QAM 07/24/17 [History] Ergocalciferol (Vitamin D2) [Vitamin D2] 50,000 unit PO FR 07/24/17 [History] Fluticasone/Salmeterol [Advair 250-50 Diskus] 1 puff INHALATION DAILY 07/24/17 [History] Levothyroxine Sodium [Synthroid] 150 mcg PO QAM 07/24/17 [History] Oxybutynin Chloride 5 mg PO HS 07/24/17 [History] buPROPion XL [Wellbutrin Xl] 300 mg PO QAM 07/24/17 [History] Etanercept [Enbrel] 50 mg SQ CARR 01/04/18 [History] sitaGLIPtin PHOS/metFORMIN HCL [Janumet Xr 100-1,000 mg Tablet] 1 each PO W/SUPPER 01/04/18 [History] Fluticasone Nasal Cassel [Flonase Nasal Cassel] 1 spray EA NOSTRIL DAILY 07/02/18 [History] Tamsulosin HCl [Flomax] 0.4 mg PO BID 07/02/18 [History] amLODIPine BESYLATE/BENAZEPRIL [amLODIPine BESYLATE/BENAZEPRIL 5-10 mg] 1 cap PO QAM 07/02/18 [History] metFORMIN HCL [Glucophage] 500 mg PO W/BRKFST 07/02/18 [History] Atorvastatin [Lipitor] 40 mg PO HS 07/08/19 [History] Diclofenac Sodium Gel [Voltaren Gel] 2 gm TOPICAL QID PRN 07/08/19 [History] Rivaroxaban [Xarelto] 20 mg PO DAILY 07/08/19 [History] Diclofen/Gabapentin/Lidocaine TOPICAL HS 05/14/20 [History] Docusate [Colace] 100 mg PO DAILY #30 capsule 05/19/20 [Rx] Hydrocodone/Acetaminophen [[place] 5-325] 1 - 2 each PO Q6HR PRN #56 tab 05/19/20 [Rx] Follow up Appointment(s)/Referral(s): [facility], [NON-STAFF] - ([facility] will call you and set up your first visit for about 24 hours after discharge from the hospital. ) Moy Belcher, PAC [PHYSICIAN DINING ROOM COORDINATOR] - 06/03/20 1:50 pm Activity/Diet/Wound Care/Special Instructions: Orthopedic Discharge Instructions: 1. Wound care and infection precautions, keep incision dry and covered while showering, no lotions, creams, moisturizers. No soaking, pools, hot tubs. Do not scrub over incision. Okay to remove home dressing on 05/27/2020 2. Weight-bear as tolerated with walker / cane until follow-up. 3. Ice and elevate when necessary. Do not exceed 20 minutes per hour with ice pack. 4. Utilize compression sleeve until seen at first follow up appointment. 5. Pain meds and anticoagulants per prescription. 6. Pain medication has potential to cause constipation. Increase oral fluid and fiber intake. Contact primary care provider if you have not had a bowel movement within 48 hours after discharge. 7. No anti-inflammatory medication until discussed at first post operative visit, this including Motrin, Aleve, Mobic, Diclofenac 8. Follow up in office at 2 weeks postop with Fam Belcher PA-C 9. Follow up with your primary care doctor 7-10 days after discharge. 10. Contact [facility] with any questions, [phone]. 11. Please call [employer] once home to arrange delivery of Continuous Passive Motion (CPM) machine: [phone]. Discharge Disposition: HOME WITH HOME HEALTH SERVICES
[2020-05-19] MEDS ORDERED: LINAGLIPTIN 5 MG TABLET PO SCH (17:30)
[2020-05-19] MEDS ORDERED: RIVAROXABAN 20 MG TAB PO SCH (17:30)
[2020-05-22] MEDS ORDERED: ERGOCALCIFEROL 50,000 UNIT CAP PO SCH (12:00)
== END 2020-05-19 14:41 | disposition home health service (06) ==
LOC: OR 13:52 → 4SSUR 16:58 → OR 05-19 14:41
PROVIDERS: ATTEND Orthopaedic Surgery
DX: M17.11 Unilateral primary osteoarthritis, right knee (principal); I10 Essential (primary) hypertension; E78.5 Hyperlipidemia, unspecified; J45.909 Unspecified asthma, uncomplicated; G47.33 Obstructive sleep apnea (adult) (pediatric); E03.9 Hypothyroidism, unspecified; E11.9 Type 2 diabetes mellitus without complications; F41.9 Anxiety disorder, unspecified; F32.9 Major depressive disorder, single episode, unspecified; K21.9 Gastro-esophageal reflux disease without esophagitis; M06.9 Rheumatoid arthritis, unspecified; Z91.09 Other allergy status, other than to drugs and biological substances; Z79.82 Long term (current) use of aspirin; Z79.01 Long term (current) use of anticoagulants; Z79.84 Long term (current) use of oral hypoglycemic drugs; Z79.890 Hormone replacement therapy; Z79.51 Long term (current) use of inhaled steroids; Z79.899 Other long term (current) drug therapy; Z99.89 Dependence on other enabling machines and devices; Z98.42 Cataract extraction status, left eye; Z98.890 Other specified postprocedural states
CPT/HCPCS: 97110; 97161; 64448; 76942; 80053; 85025; 88300; 73560; 27447; C1776; C1713; J2250; J0171; J1100; J0690 ×2; J2405; J3010; J1885; J2795 ×2; J2704; J0735

== ENCOUNTER → 2020-08-24 | Outpatient (CLI) | payer MEDICARE ==
[2020-08-24 10:20] LABS: Basophils % (A) 0 %; Eosinophils # (A) 0.1 k/uL (0-0.7); Eosinophils % (A) 1 %; HCT 40.2 % (39.0-53.0); Lymphocytes # (A) 1.7 k/uL (1.0-4.8); Lymphocytes % (A) 15 %; MCH 28.2 pg (25.0-35.0); MCHC 32.3 g/dL (31.0-37.0); MCV 87.4 fL (80.0-100.0); Mean Platelet Volume 8.5; Monocytes # (A) 0.7 k/uL (0-1.0); Monocytes % (A) 7 %; Neutrophils # (A) 8.3 k/uL (1.3-7.7); Neutrophils % (A) 75 %; Platelet Count 210 k/uL (150-450); RDW 14.3 % (11.5-15.5); WBC 11.1 k/uL (3.8-10.6)
[2020-08-24 10:26] LABS: INR 1.1 (<1.2); Prothrombin Time 11.2 sec (9.0-12.0)
[2020-08-24 10:32] LABS: Potassium 3.7 mmol/L (3.5-5.1)
== END | disposition home or self-care (01) ==
LOC: LABPAT 09:22
PROVIDERS: ATTEND Orthopaedic Surgery
DX: Z01.812 Encounter for preprocedural laboratory examination (principal); M17.12 Unilateral primary osteoarthritis, left knee
CPT/HCPCS: 80051; 85025; 85610; 87070

== ENCOUNTER 2020-08-31 08:47 | Day surgery (SDC) | payer MEDICARE ==
[2020-08-26 11:54] VITALS: BMI 39.4
--- NOTE | 2020-08-30 12:34 | HP ---
HISTORY AND PHYSICAL REASON FOR ADMISSION: Surgery 08/31/2020 Ye Montes is a 64-year-old gentleman seen with symptomatic left knee osteoarthritis. Options for treatment were discussed with him. He elected to proceed with left total knee arthroplasty. Consent regarding the procedure was obtained. Previous clearance provided by Dr. Eliza Davenport. PAST MEDICAL HISTORY: Hypertension, hyperlipidemia, [id number] diabetes, hypothyroidism. PAST SURGICAL HISTORY: Right total knee arthroplasty, bilateral knee arthroscopy, left shoulder arthroscopy with lumbar spine fusion. MEDICATIONS: Advair, Lotrel, Synthroid, Cymbalta, Flomax, Lipitor, metformin and Xarelto. ALLERGIES: None. SOCIAL HISTORY: He denies current tobacco use. PHYSICAL EXAMINATION: Evaluation of the left knee: Range of motion -4/5-110 tenderness medial joint line. Mild effusion. Crepitus medial patellofemoral compartments range of motion. Pain with patellofemoral compression. Ligaments stable. Hip rotation without pain. Distal neurovascular exam intact. RADIOGRAPHS: Left knee radiographs reveal severe osteoarthritic changes. IMPRESSION: 1. Left knee osteoarthritis. 2. Hypertension. 3. Hyperlipidemia. 4. Hypothyroidism. PLAN: Left total knee arthroplasty. Surgery scheduled for 08/31/2020. MMODL / IJN: [id number] /
[~2020-08-31 08:47] MED LIST changes: -ACETAMINOPHEN TAB 500 MG TAB PO ONE; +ACETAMINOPHEN TAB 500 MG TAB PO PRN; -DEXAMETHASONE SOD PHOSPHATE 10 MG/ML 1 ML VIAL IV ONE; +DEXAMETHASONE SOD PHOSPHATE 4 MG/ML 1 ML VIAL IV ONE; -MELOXICAM 7.5 MG TAB PO ONE; +MELOXICAM 7.5 MG TAB PO PRN; -MORPHINE SULFATE 2 MG/ML SYRINGE IV PRN; -ROPIVACAINE 246.25 MG, EPINEPHrine 0.5 MG, KETOROLAC 30 MG, cloNIDine HCL/PF 80 MCG, WA... MISCELLANE ONE; +ROPIVACAINE/EPI/CLONIDINE/KET 50 ML SYRINGE MISCELLANE PRN; -SCOPOLAMINE 1.5MG/72HR PATCH TRANSDERM ONE; -TRANEXAMIC ACID 1,000 MG in SODIUM CHLORIDE 0.9% 100 ML IVPB ONE; +TRANEXAMIC ACID 1,000 MG in SODIUM CHLORIDE 0.9% 100 ML IVPB PRN; -ceFAZolin 3 GM in SODIUM CHLORIDE 0.9% 100 ML IVPB ONE; +ceFAZolin 3 GM in SODIUM CHLORIDE 0.9% 100 ML IVPB PRN; -fentaNYL (PF) 50 MCG/ML 2 ML AMP IV PRN
[2020-08-31 09:34] LABS: Glucose,Whole Blood 224 mg/dL (75-99)
[2020-08-31] MEDS: LACTATED RINGERS 1,000 ML IV SCH (09:36)
[2020-08-31] MEDS ORDERED: MIDAZOLAM 2 MG/2 ML VIAL IV ONE (09:53)
[2020-08-31] MEDS ORDERED: fentaNYL (PF) 50 MCG/ML 2 ML AMP IVP ONE (09:53)
[2020-08-31] MEDS ORDERED: fentaNYL (PF) 50 MCG/ML 2 ML AMP ONE (11:10)
[2020-08-31] MEDS ORDERED: TRANEXAMIC ACID 1,000 MG/10 ML VIAL ONE (11:10)
[2020-08-31] MEDS ORDERED: SODIUM CHLORIDE 0.9% 100 ML BAG ONE (11:10)
[2020-08-31] MEDS ORDERED: MIDAZOLAM 2 MG/2 ML VIAL ONE (11:10)
[2020-08-31] MEDS ORDERED: PROPOFOL 10 MG/ML 20 ML VIAL IV ONE (11:10)
[2020-08-31] MEDS ORDERED: ceFAZolin 1,000 MG in SODIUM CHLORIDE 0.9% 1,000 ML IRRIGATION ONE (12:10)
[2020-08-31] MEDS ORDERED: LACTATED RINGERS 1,000 ML IV ONE (12:14)
--- NOTE | 2020-08-31 12:26 | P.ANPRN ---
Procedure Note - Anesthesia - Nerve Block Performed Left Adductor Canal Infusion Time Out Performed: Yes (952) Date of Procedure: 08/31/20 Procedure Start Time: 09:53 Procedure Stop Time: 10:00 Location of Patient: PreOp Indication: Acute Post-Operative Pain, Requested by Surgeon Specifically requested for management of pain by DrHarshad: Denton Venegas Sedation Type: Sedate with meaningful contact maintained Preparation: Sterile Prep Position: Supine Catheter: Indwelling Needle Types: Pajunk Needle Gauge: 21 Ultrasound used to visualize needle placement: Yes Ultrasound used to observe medication spread: Yes Injectate: 0.5% Ropivacaine (see comment for volume) (20cc) Blood Aspirated: No Pain Paresthesia on Injection Noted: No Resistance on Injection: Normal Image Stored and Saved: Yes Events: Uneventful and Well Tolerated
[2020-08-31] MEDS ORDERED: ROPIVACAINE 0.2%-NS ON-Q PUMP 1,090 MG, EMPTY PAIN BALL 1 EACH MISCELLANE PRN (13:45)
[2020-08-31] MEDS ORDERED: traMADol 50 MG TAB PO PRN (14:00)
[2020-08-31] MEDS ORDERED: ACETAMINOPHEN TAB 325 MG TAB PO PRN (14:00)
[2020-08-31] MEDS ORDERED: MAGNESIUM HYDROXIDE 2,400 MG/10 ML CUP PO PRN (14:00)
[2020-08-31] MEDS ORDERED: NALOXONE 0.4 MG/ML 1 ML VIAL IV PRN (14:00)
[2020-08-31] MEDS ORDERED: ONDANSETRON 4 MG/2 ML VIAL IVP PRN (14:00)
[2020-08-31] MEDS ORDERED: HYDROcodone/APAP 5-325MG 1 EACH TAB PO PRN ×2 (14:00→18:05)
[2020-08-31 14:01] LABS: Glucose,Whole Blood 258 mg/dL (75-99)
--- NOTE | 2020-08-31 14:03 | P.OP ---
Date of Procedure: 08/31/20 Preoperative Diagnosis: Left knee osteoarthritis Postoperative Diagnosis: Left knee osteoarthritis Procedure(s) Performed: Left total knee arthroplasty Implants: 1. Depuy attune size 8 cruciate retaining cemented femur 2. Depuy attune size 8 fixed bearing cemented tibial baseplate 3. Depuy attune size 8 fixed bearing cruciate retaining 8mm polyethylene tibial insert 4. Depuy attune 41 mm all polyethylene cemented patella Anesthesia: regional (adductor canal catheter), local, spinal Surgeon: Denton Venegas Fill Manager #1: Moy Belcher Estimated Blood Loss (ml): 45 Pathology: other (bone) Condition: stable Disposition: PACU Indications for Procedure: 64-year-old gentleman seen with symptomatic left knee osteoarthritis. After having treatment options discussed, he elected to proceed with total knee arthroplasty Operative Findings: See description of procedure Description of Procedure: Patient was taken to the operative suite after having an adductor canal catheter placed by the department of anesthesia. Patient underwent a spinal anesthetic by the department of anesthesia. Patient was given preoperative IV intake antibiotics and TXA. A well-padded tourniquet was placed about the left lower extremity. The lower extremity was then prepped and draped in the normal sterile orthopedic fashion. The extremity was elevated, a tourniquet was insufflated to 300. A standard anterior incision was made sharply through skin. Dissection was taken down through the subcutaneous soft tissues down to the extensor mechanism. A medial arthrotomy was performed, patella was everted and knee was flexed. There was advanced osteoarthritis noted. I introduced my distal intramedullary femoral drill. I then introduced the distal femoral cutting jig. Fam EDWARDS secured the cutting jig with 2 pins. I held retractors in position while Fam EDWARDS performed the distal femoral resection through the guide area we now removed her distal femoral cutting guide. We now placed our 4-in-1 femoral cutting block and positioned and it was secured with 2 pins by Fam EDWARDS while I held the block in position. The distal femoral finishing was now completed. A proximal tibial cutting guide was positioned. I held the guide in the appropriate position with both hands well Fam EDWARDS inserted stabilizing pins into the guide. Proximal tibial cut was made. We now placed a trial femoral component into position, along with an appropriate size tibial tray and insert. We now took the knee through range of motion and had full extension good flexion and good overall soft tissue balance noted. The patella was everted and stabilized with 2 towel clips held by Fam EDWARDS while I performed a flush with patellar quad tendon utilizing a fresh sawblade. We templated the patella, appropriate drill holes were made. An appropriate trial patella was positioned, knee was taken through full range of motion with the patella tracking very nicely. The trial patella was removed. Drill holes were made through the femoral component. All trial components were removed after marking off the appropriate rotation of the tibia. Retractors were now positioned along the proximal tibia. An appropriate keel punch was made with the appropriate size tibial guide by myself on Fam EDWARDS assisted by holding retractors. At this point appropriate size implants were chosen and opened. The joint was irrigated copiously with pulse lavage mechanical irrigation. The posterior capsule was infiltrated with local analgesic. The wound was irrigated with pulse lavage mechanical irrigation. We mixed antibiotic methylmethacrylate. We placed the knee into flexion. We placed multiple retractors assisted by Fam EDWARDS to expose the proximal tibia. Once the methyl methacrylate was ready, the tibial component was cemented into place removing any excess methylmethacrylate form by both myself and Fam EDWARDS. The femoral component was cemented into place removing the removing any excess methylmethacrylate performed by both myself and Fam EDWARDS. We then inserted the appropriate size polyethylene tibial insert. We made sure that it was locked into position. We took the knee into full extension, and then back in a flexion making sure we had removed any excess methylmethacrylate. The patellar component was then cemented down and secured with clamp. Excess methylmethacrylate removed. We kept the knee in full extension, patellar clamp in position until methylmethacrylate had hardened. Once it had hardened the patellar clamp was removed. The knee was taken through full range of motion. The patella tracked nicely. There was good soft tissue balancing. The tourniquet was now released. Additional hemostasis was achieved via electrocautery. A second gram of TXA was given. The wound again was irrigated with pulse lavage mechanical irrigation. The superficial soft tissues were infiltrated local analgesic. The extensor mechanism was repaired with Vicryl. We checked the repair with range of motion and it was stable. The subcutaneous soft tissues were repaired with Vicryl in layers. The skin was approximated with pernio/Dermabond. Sterile dressings were applied followed by loose web roll and Justin bandage. The patient was transferred to a bed, and taken to recovery in stable and satisfactory condition. Fam EDWARDS assisted with this complex procedure.
[2020-08-31] MEDS ORDERED: INSULIN ASPART (NovoLOG) 100 UNIT/ML VIAL SQ ONE (14:08)
--- NOTE | 2020-08-31 14:57 | XR ---
EXAMINATION TYPE: XR knee limited LT DATE OF EXAM: 08/31/2020 CLINICAL HISTORY: Left knee pain and arthritis status post total knee replacement. TECHNIQUE: Portable AP and crosstable lateral views of the left knee are obtained immediately postop eratively. COMPARISON: Outside Left knee x-ray August 07, 2020 FINDINGS: Metallic hardware from total left knee arthroplasty is seen and appears satisfactory in al ignment and position. There is evidence of recent surgery with diffuse subcutaneous gas and soft tis canelo swelling noted. Posterior arterial vascular calcification is redemonstrated. IMPRESSION: METALLIC HARDWARE FROM TOTAL LEFT KNEE ARTHROPLASTY IS SATISFACTORY IN ALIGNMENT.
[2020-08-31] MEDS ORDERED: ceFAZolin 3 GM in SODIUM CHLORIDE 0.9% 100 ML IVPB SCH (16:00)
[2020-08-31] MEDS: HYDROmorphone 1 MG/ML 1 ML SYRINGE IVP PRN (16:06)
[2020-08-31] MEDS ORDERED: DICLOFENAC SODIUM GEL 100 GM TUBE TOPICAL PRN (18:05)
--- NOTE | 2020-08-31 18:29 | P.CONS ---
History of Present Illness - Reason for Consult Consult date: 08/31/20 - History of Present Illness Ye Montes, is a 64-year-old male patient of Dr. Davenport who was admitted to [facility] by Dr. Venegas and underwent left total knee arthroplasty today, medical consultation was requested postoperatively for management while hospitalized. Patient has multiple medical problems including history of hypertension, history of hyperlipidemia, history of hjj-rdyhncf-iamgidjht diabetes mellitus, history of hypothyroidism, history of osteoarthritis, history of degenerative disc disease with spinal stenosis with history of lumbar fusion in the past, history of gastroesophageal reflux disease, history of obstructive sleep apnea maintained on CPAP at night, possible history of paroxysmal atrial fibrillation, patient stated that he had history of irregular heart rhythm, he has been maintained on Xarelto for about 2 years. On review of systems patient is alert and oriented 3 in no distress he has mild pain in his left lower extremity, otherwise he denies any complaints there is no fever or chills no headache or dizziness no chest pain no shortness of breath no cough no nausea or vomiting no abdominal pain no diarrhea no blood in the stools no burning with urination no frequency or urgency and no hematuria Past Medical History Past Medical History: Asthma, Diabetes Mellitus, Eye Disorder, Hyperlipidemia, Hypertension, Osteoarthritis (OA), Prostate Disorder, Rheumatoid Arthritis (RA), Sleep Apnea/CPAP/BIPAP, Thyroid Disorder Additional Past Medical History / Comment(s): Bilateral Keratoconus, uses CPAP, chronic lower back pain, had tooth pulled yesterday-states surgeon is aware, not really sure why he takes xarelto History of Any Multi-Drug Resistant Organisms: None Reported Past Surgical History: Back Surgery, Orthopedic Surgery, Tonsillectomy Additional Past Surgical History / Comment(s): Bilateral Carpal Tunnel surgery, bilateral meniscus repair, bilateral lasik eye surgery, implant right eye. back fusion 07/2017, colonoscopy, right knee replaced 2018 Past Anesthesia/Blood Transfusion Reactions: No Reported Reaction Additional Past Anesthesia/Blood Transfusion Reaction / Comm: more bleeding than expected with back surgery in 2017 Past Psychological History: Depression Additional Psychological History / Comment(s): High anxiety. Has a fear of needles, has fainted in the past. Smoking Status: Former smoker Past Alcohol Use History: Rare Additional Past Alcohol Use History / Comment(s): Quit smoking 1981 Past Drug Use History: None Reported - Past Family History Mother Family Medical History: Cancer Medications and Allergies Home Medications Medication Instructions Recorded Confirmed Type Aspirin [Adult Low Dose Aspirin EC] 81 mg PO DAILY 07/24/17 08/31/20 History Bisoprolol-Hctz 10-6.25 mg [Ziac 1 tab PO QAM 07/24/17 08/31/20 History 10-6.25] DULoxetine HCL [Cymbalta] 60 mg PO QAM 07/24/17 08/31/20 History Ergocalciferol (Vitamin D2) 50,000 unit PO CARR 07/24/17 08/31/20 History [Vitamin D2] Fluticasone/Salmeterol [Advair 1 puff INHALATION DAILY 07/24/17 08/31/20 History 250-50 Diskus] Levothyroxine Sodium [Synthroid] 150 mcg PO QAM 07/24/17 08/31/20 History Oxybutynin Chloride 10 mg PO HS 07/24/17 08/31/20 History buPROPion XL [Wellbutrin Xl] 300 mg PO QAM 07/24/17 08/31/20 History Etanercept [Enbrel] 50 mg SQ CARR 01/04/18 08/31/20 History sitaGLIPtin PHOS/metFORMIN HCL 1 each PO HS 01/04/18 08/31/20 History [Janumet Xr 100-1,000 mg Tablet] Fluticasone Nasal [place] [Flonase 1 spray EA NOSTRIL HS 07/02/18 08/31/20 History Nasal [place]] Tamsulosin HCl [Flomax] 0.8 mg PO HS 07/02/18 08/31/20 History metFORMIN HCL [Glucophage] 500 mg PO W/BRKFST 07/02/18 08/31/20 History Atorvastatin [Lipitor] 40 mg PO HS 07/08/19 08/31/20 History Diclofenac Sodium Gel [Voltaren 2 gm TOPICAL QID PRN 07/08/19 08/31/20 History Gel] Rivaroxaban [Xarelto] 20 mg PO HS 07/08/19 08/31/20 History Hydrocodone/Acetaminophen [[place] 1 - 2 each PO Q6HR PRN #56 tab 05/19/20 08/31/20 Rx 5-325] Amoxicillin 500 mg PO Q12HR 08/26/20 08/31/20 History Ibuprofen 200 - 400 mg PO Q6H PRN 08/26/20 08/31/20 History amLODIPine BESYLATE/BENAZEPRIL 1 tab PO QAM 08/26/20 08/31/20 History [amLODIPine BESYLATE/BENAZEPRIL 5-20 MG] Allergies Allergy/AdvReac Type Severity Reaction Status Date / Time mold AdvReac congestion Verified 08/31/20 09:20 dust AdvReac congestion Uncoded 08/31/20 09:20 pet dander AdvReac itchy Uncoded 08/31/20 09:20 eyes, congestion Physical Exam Vitals: Vital Signs Temp Pulse Pulse Resp BP BP Pulse Ox 08/31/20 17:30 71 140/78 92 L 08/31/20 17:15 77 168/83 94 L 08/31/20 17:00 73 151/83 94 L 08/31/20 16:45 71 141/82 93 L 08/31/20 16:30 76 134/80 95 08/31/20 16:15 73 133/79 95 08/31/20 16:00 80 136/79 94 L 08/31/20 15:45 74 142/77 08/31/20 15:44 95 08/31/20 15:30 73 73 145/77 92 L 08/31/20 14:28 75 16 144/81 96 08/31/20 14:13 74 16 153/86 97 08/31/20 13:58 76 16 151/82 97 08/31/20 13:43 97.2 F L 80 16 152/82 96 08/31/20 10:01 74 16 165/88 95 08/31/20 09:41 72 16 159/90 95 08/31/20 09:19 98.5 F 71 16 176/92 95 Intake and Output 08/31/20 08/31/20 08/31/20 06:59 14:59 22:59 Intake Total 1551 150 Output Total 45 Balance 1506 150 Intake: IV 1551 Intake, IV Titration 150 Amount Lactated Ringers 1,000 ml 150 @ 50 mls/hr IV .Q20H [facility] Rx#:[id number] Output: Estimated Blood Loss 45 Other: # Voids 1 Weight 126.2 kg 126.2 kg In general patient is alert and oriented 3 in no apparent distress HEENT head normocephalic and atraumatic Neck is supple no JVD no goiter no lymphadenopathy Chest exam reveals a few scattered rhonchi no wheezing Cardiac exam reveals regular heart sounds no gallops no murmurs Abdomen is soft nontender no organomegaly with normal bowel sounds Extremity exam reveals no edema no cyanosis or clubbing Neurological examination reveals no gross focal deficits Results Labs: Abnormal Lab Results - Last 24 Hours (Table) 08/31/20 08/31/20 Range/Units 09:29 13:59 POC Glucose (mg/dL) 224 H 258 H (75-99) mg/dL Assessment and Plan Plan: 1. Status post left total knee arthroplasty 2. Underlying history of hypertension 3. Underlying history of hyperlipidemia 4. Underlying history of cwc-dwmsyrv-oarfqdpxa diabetes mellitus 5. Underlying history of hypothyroidism 6. Underlying history of osteoarthritis with previous history of right total knee arthroplasty 7. Underlying history of degenerative disc disease with history of lumbar fusion. 8. Underlying history of gastroesophageal reflux disease. 9. Underlying history of obstructive sleep apnea 10. Possible underlying history of paroxysmal atrial fibrillation patient stated that he had history of irregular heart rhythm and has been maintained on Xarelto for about 2 years At this time patient is admitted to surgical floor Home medications reviewed and reordered Patient has brought in his CPAP machine from home Will recheck labs and follow in a.m.
[2020-08-31] MEDS: ceFAZolin 3 GM in SODIUM CHLORIDE 0.9% 100 ML IVPB SCH (20:32)
[2020-08-31] MEDS: HYDROcodone/APAP 5-325MG 1 EACH TAB PO PRN (20:33)
[2020-08-31] MEDS ORDERED: TAMSULOSIN 0.4 MG CAP.ER.24H PO SCH (21:00)
[2020-08-31] MEDS ORDERED: OXYBUTYNIN CHLORIDE 5 MG TAB PO SCH (21:00)
[2020-08-31] MEDS ORDERED: FLUTICASONE 50MCG/SPRAY NASAL 16GM EA NOSTRIL SCH (21:00)
[2020-08-31] MEDS ORDERED: SENNOSIDES-DOCUSATE SODIUM 1 EACH TAB PO SCH (21:00)
[2020-08-31] MEDS ORDERED: metFORMIN 500 MG TAB PO SCH (21:00)
[2020-08-31] MEDS ORDERED: ATORVASTATIN 40 MG TAB PO SCH (21:00)
[2020-08-31] MEDS ORDERED: LINAGLIPTIN 5 MG TABLET PO SCH (21:00)
[2020-09-01] MEDS: HYDROcodone/APAP 5-325MG 1 EACH TAB PO PRN ×2 (01:28→07:02)
[2020-09-01] MEDS: HYDROmorphone 1 MG/ML 1 ML SYRINGE IVP PRN ×2 (01:38→10:06)
[2020-09-01] MEDS: ceFAZolin 3 GM in SODIUM CHLORIDE 0.9% 100 ML IVPB SCH (03:12)
[2020-09-01 04:03] VITALS: TEMP 97.7
[2020-09-01] MEDS ORDERED: LEVOTHYROXINE 75 MCG TAB PO SCH (06:30)
[2020-09-01 06:41] LABS: Basophils % (A) 0 %; Eosinophils # (A) 0.1 k/uL (0-0.7); Eosinophils % (A) 0 %; HGB 11.7 gm/dL (13.0-17.5); Lymphocytes # (A) 1.9 k/uL (1.0-4.8); Lymphocytes % (A) 13 %; MCH 28.1 pg (25.0-35.0); MCHC 32.4 g/dL (31.0-37.0); MCV 86.8 fL (80.0-100.0); Mean Platelet Volume 8.7; Monocytes # (A) 1.1 k/uL (0-1.0); Monocytes % (A) 8 %; Neutrophils # (A) 10.9 k/uL (1.3-7.7); Neutrophils % (A) 77 %; Platelet Count 201 k/uL (150-450); RBC 4.15 m/uL (4.30-5.90); RDW 14.4 % (11.5-15.5); WBC 14.2 k/uL (3.8-10.6)
[2020-09-01] MEDS: LACTATED RINGERS 1,000 ML IV SCH (06:41)
[2020-09-01 07:17] VITALS: BP 139/73; PULSE 70; RESP 18
[2020-09-01] MEDS ORDERED: metFORMIN 500 MG TAB PO SCH (07:30)
[2020-09-01] MEDS ORDERED: SYMBICORT 80-4.5 MCG INHALER INHALATION SCH (08:00)
[2020-09-01] MEDS ORDERED: BISOPROLOL-HCTZ 10-6.25 MG 1 EACH TAB PO SCH (09:00)
[2020-09-01] MEDS ORDERED: DULoxetine HCL 60 MG CAPSULE.DR PO SCH (09:00)
[2020-09-01] MEDS ORDERED: ASPIRIN 81 MG PO SCH (09:00)
[2020-09-01] MEDS ORDERED: amLODIPine 5 MG TAB PO SCH (09:00)
[2020-09-01] MEDS ORDERED: lisinopriL 20 MG TAB PO SCH (09:00)
[2020-09-01] MEDS ORDERED: buPROPion XL 300 MG TAB.ER.24H PO SCH (09:00)
--- NOTE | 2020-09-01 09:14 | P.PN ---
Progress Note - Text Progress Note Date: 09/01/20 Patient seen and evaluated at 0720 am today. 64 y/o male POD #1 LEFT TKA with SAB/adductor canal perineural catheter for post-op pain management Patient up ambulating from bathroom and appears to be doing well. Reports a VAS of 3/10 at rest and 8-9/10 with ambulation. No complaint of thigh pain, paresthesias or quadricep weakness. No evidence of fever. Insertion site clean/dry without evidence of erythema. Patient to be discharged home today. Will follow up as indicated.
[2020-09-01 10:13] LABS: African American GFR (CKD) 80.6 (60.0-200.0); Albumin 3.6 g/dL (3.80-4.90); Albumin/Globulin Ratio 1.89 (1.60-3.17); Anion Gap 8.2 mmol/L (4.00-12.00); BUN/Creat Ratio 21.82 Ratio (12.00-20.00); Calcium 8.7 mg/dL (8.7-10.3); Carbon Dioxide 30.8 mmol/L (21.6-31.8); Globulin 1.9 g/dL (1.6-3.3); Non-African American GFR(CKD) 69.6 (60.0-200.0); Potassium 3.9 mmol/L (3.5-5.5); Total Bilirubin 0.2 mg/dL (0.2-1.2); Total Protein 5.5 g/dL (6.2-8.2)
--- NOTE | 2020-09-01 10:30 | P.PN ---
Subjective Progress Note Date: 09/01/20 Principal diagnosis: Status post left total knee arthroplasty Patient is very well at this time. He's done well with therapy. His pain is well-controlled. Denies any headaches, lightheadedness, chest pain or shortness of breath. Objective - Vital Signs Vital signs: Vital Signs Temp 97.7 F 09/01/20 07:16 Pulse 70 09/01/20 07:16 Resp 18 09/01/20 07:16 BP 139/73 09/01/20 07:16 Pulse Ox 96 09/01/20 07:16 Intake & Output 08/31/20 09/01/20 09/01/20 18:59 06:59 18:59 Intake Total 1701 Output Total 45 Balance 1656 Weight 126.2 kg Intake: IV 1551 Intake, IV Titration 150 Amount Lactated Ringers 1,000 ml 150 @ 50 mls/hr IV .Q20H [facility] Rx#:[id number] Output: Estimated Blood Loss 45 Other: Voiding Method Toilet # Voids 1 2 - Exam Left lower extremity: Incision is clean, dry, and intact. The foam dressing is in good condition. There is minimal soft tissue swelling and ecchymosis surrounding the medial and lateral aspects of the incision. Calf is soft, no tenderness with palpation. Plantar flexion, dorsiflexion, EHL, FHL are intact. Sensory exam to light touch throughout the extremity is intact, [dorsal pedis pulses 2+. - Labs CBC & Chem 7: 09/01/20 06:04 09/01/20 06:04 Labs: Abnormal Lab Results - Last 24 Hours (Table) 08/31/20 09/01/20 09/01/20 Range/Units 13:59 06:04 06:04 WBC 14.2 H (3.8-10.6) k/uL RBC 4.15 L (4.30-5.90) m/uL Hgb 11.7 L (13.0-17.5) gm/dL Hct 36.0 L (39.0-53.0) % Neutrophils # 10.9 H (1.3-7.7) k/uL Monocytes # 1.1 H (0-1.0) k/uL BUN/Creatinine Ratio 21.82 H (12.00-20.00) Ratio Glucose 196 H (70-110) mg/dL POC Glucose (mg/dL) 258 H (75-99) mg/dL Total Protein 5.5 L (6.2-8.2) g/dL Albumin 3.60 L (3.80-4.90) g/dL Assessment and Plan Assessment: Status post left total knee arthroplasty Plan: Pain control, plan for discharge home on [place] 7.5 mg/225 mg DVT prophylaxis, we will resume Xarelto 20 mg today Wound care instructions discussed Home physical therapy and nursing after discharge Medical recommendations Plan for discharge home today Time with Patient: Less than 30
--- NOTE | 2020-09-01 10:32 | P.DS ---
Providers Date of admission: 08/31/2020 Expected date of discharge: 09/01/20 Attending physician: Denton Venegas Consults: 08/31/20 14:00 Consult Physician Routine Consulting Provider: Abdullahi Young Consult Reason/Comments: medical management Do you want consulting provider notified?: Yes Primary care physician: Eliza Davenport Hospital Course: Date of admission: 08/31/2020 Date of discharge: 09/01/2020 Admission diagnosis: Status post left total knee arthroplasty Discharge diagnosis: Same Attending physician: Dr. Venegas Surgical procedures: Left total knee arthroplasty Brief history: Patient is a 64-year-old male with a history of progressive primary left knee osteoarthritis. At this point patient has failed conservative treatment measures and has opted to proceed with a elective left total knee arthroplasty. Hospital course: Details of patient's surgery can be found in operative report. Patient tolerated the procedure well and was subsequently transported to orthopedic floor. Patient's orthopeidc and medical care was provided daily. Patient had daily laboratory tests performed for evaluation of overall blood counts. Patient had daily physical therapy to include strengthening range of motion as well as education with walker ambulation. Patient was treated with Xarelto for their postoperative DVT prophylaxis during their inpatient stay. Patient was noted to have a relatively uneventful postoperative course. Patient reported satisfactory pain control with oral pain medications by postoperative day 0. Patient showed satisfactory progress with physical therapy. Patient moved steadily through the program and had no difficulty meeting the goals by postoperative day 1. Given patient's otherwise satisfactory course and having met physical therapy goals, plan is to discharge patient home on postoperative day 1. Discharge condition/disposition: Patient will be discharged home in stable condition. Discharge medications: Instructions are given on resumption of patient's normal daily medications per primary care recommendation, in addition patient will be prescribed [place] 7.5 mg/325 mg. Discharge instructions: 1. Wound care and infection precautions, keep incision dry and covered while showering, no lotions, creams, moisturizers. No soaking, tubs, pools, hottubs. Do not scrub over the incision. Okay to remove foam dressing on 09/07/2020 2. Weight-bear as tolerated with walker / cane until follow-up. 3. Ice and elevate when necessary. Do not exceed 20 minutes per hour with ice pack. 4. Utilize compression sleeve until seen at first follow up appointment. 5. Visiting nursing care. 6. Home physical therapy including home CPM. 7. Pain meds and anticoagulants per prescription. 8. Pain medication has potential to cause constipation. Increase oral fluid and fiber intake. Contact primary care provider if you have not had a bowel movement within 48 hours after discharge 9. No anti-inflammatory medication until discussed at first post operative visit, this including Motrin, Aleve, Mobic, Diclofenac 10. Follow up in office at 2 weeks postop with Fam Belcher PA-C 11. Follow up with your primary care doctor 7-10 days after discharge. 12. Contact [facility] with any questions, . Procedures: Left total knee arthroplasty Patient Condition at Discharge: Good Plan - Discharge Summary Discharge Rx Participant: Yes New Discharge Prescriptions: New HYDROcodone/APAP 7.5-325MG [[place] 7.5] 1 - 2 each PO Q6HR PRN #42 tab PRN Reason: Pain Discontinued Hydrocodone/Acetaminophen [[place] 5-325] 1 - 2 each PO Q6HR PRN #56 tab PRN Reason: Pain No Action Fluticasone/Salmeterol [Advair 250-50 Diskus] 1 puff INHALATION DAILY Oxybutynin Chloride 10 mg PO HS buPROPion XL [Wellbutrin Xl] 300 mg PO QAM DULoxetine HCL [Cymbalta] 60 mg PO QAM Bisoprolol-Hctz 10-6.25 mg [Ziac 10-6.25] 1 tab PO QAM Levothyroxine Sodium [Synthroid] 150 mcg PO QAM Ergocalciferol (Vitamin D2) [Vitamin D2] 50,000 unit PO CARR Aspirin [Adult Low Dose Aspirin EC] 81 mg PO DAILY Etanercept [Enbrel] 50 mg SQ CARR sitaGLIPtin PHOS/metFORMIN HCL [Janumet Xr 100-1,000 mg Tablet] 1 each PO HS metFORMIN HCL [Glucophage] 500 mg PO W/BRKFST Tamsulosin HCl [Flomax] 0.8 mg PO HS Fluticasone Nasal [place] [Flonase Nasal [place]] 1 spray EA NOSTRIL HS Rivaroxaban [Xarelto] 20 mg PO HS Atorvastatin [Lipitor] 40 mg PO HS Diclofenac Sodium Gel [Voltaren Gel] 2 gm TOPICAL QID PRN PRN Reason: Pain Ibuprofen 200 - 400 mg PO Q6H PRN PRN Reason: Pain Amoxicillin 500 mg PO Q12HR amLODIPine BESYLATE/BENAZEPRIL [amLODIPine BESYLATE/BENAZEPRIL 5-20 MG] 1 tab PO QAM Discharge Medication List Aspirin [Adult Low Dose Aspirin EC] 81 mg PO DAILY 07/24/17 [History] Bisoprolol-Hctz 10-6.25 mg [[place]iac 10-6.25] 1 tab PO QAM 07/24/17 [History] DULoxetine HCL [Cymbalta] 60 mg PO QAM 07/24/17 [History] Ergocalciferol (Vitamin D2) [Vitamin D2] 50,000 unit PO CARR 07/24/17 [History] Fluticasone/Salmeterol [Advair 250-50 Diskus] 1 puff INHALATION DAILY 07/24/17 [History] Levothyroxine Sodium [Synthroid] 150 mcg PO QAM 07/24/17 [History] Oxybutynin Chloride 10 mg PO HS 07/24/17 [History] buPROPion XL [Wellbutrin Xl] 300 mg PO QAM 07/24/17 [History] Etanercept [Enbrel] 50 mg SQ CARR 01/04/18 [History] sitaGLIPtin PHOS/metFORMIN HCL [Janumet Xr 100-1,000 mg Tablet] 1 each PO HS 01/04/18 [History] Fluticasone Nasal [place] [Flonase Nasal [place]] 1 spray EA NOSTRIL HS 07/02/18 [History] Tamsulosin HCl [Flomax] 0.8 mg PO HS 07/02/18 [History] metFORMIN HCL [Glucophage] 500 mg PO W/BRKFST 07/02/18 [History] Atorvastatin [Lipitor] 40 mg PO HS 07/08/19 [History] Diclofenac Sodium Gel [Voltaren Gel] 2 gm TOPICAL QID PRN 07/08/19 [History] Rivaroxaban [Xarelto] 20 mg PO HS 07/08/19 [History] Amoxicillin 500 mg PO Q12HR 08/26/20 [History] Ibuprofen 200 - 400 mg PO Q6H PRN 08/26/20 [History] amLODIPine BESYLATE/BENAZEPRIL [amLODIPine BESYLATE/BENAZEPRIL 5-20 MG] 1 tab PO QAM 08/26/20 [History] HYDROcodone/APAP 7.5-325MG [[place] 7.5] 1 - 2 each PO Q6HR PRN #42 tab 09/01/20 [Rx] Follow up Appointment(s)/Referral(s): [facility] [NON-STAFF] - As Needed (Continuous Passive Motion knee machine.) [facility], [NON-STAFF] - As Needed Moy Belcher PAC [PHYSICIAN HELMET HAT P[employer]CHER] - 2 Weeks Activity/Diet/Wound Care/Special Instructions: Orthopedic Discharge Instructions: 1. Wound care and infection precautions, keep incision dry and covered while showering, no lotions, creams, moisturizers. No soaking, pools, hot tubs. Do not scrub over incision. 2. Weight-bear as tolerated with walker / cane until follow-up. 3. Ice and elevate when necessary. Do not exceed 20 minutes per hour with ice pack. 4. Utilize compression sleeve until seen at first follow up appointment. 5. Pain meds and anticoagulants per prescription. 6. Pain medication has potential to cause constipation. Increase oral fluid and fiber intake. Contact primary care provider if you have not had a bowel movement within 48 hours after discharge. 7. No anti-inflammatory medication until discussed at first post operative visit, this including Motrin, Aleve, Mobic, Diclofenac. 8. Follow up in office at 2 weeks postop with Fam Belcher PA-C 9. Follow up with your primary care doctor 7-10 days after discharge. 10. Contact [facility] with any questions, . Dressing instructions: 1. Okay to remove the foam dressing on 09/07/2020 2. Okay to shower directly over the incision 10 days after surgery Discharge Disposition: HOME WITH HOME HEALTH SERVICES
[2020-09-01 11:36] LABS: Glucose,Whole Blood 150 mg/dL (75-99)
[2020-09-01] MEDS ORDERED: RIVAROXABAN 20 MG TAB PO SCH (17:30)
[2020-09-06] MEDS ORDERED: ERGOCALCIFEROL 50,000 UNIT CAP PO SCH (09:00)
[2020-09-06] MEDS ORDERED: NON FORMULARY DRUG (Etanercept [Enbrel] 50 MG/ML Syringe) SQ SCH (18:05)
== END 2020-09-01 13:55 | disposition home health service (06) ==
LOC: OR 08:47 → 4SSUR 13:51 → OR 09-01 13:55
PROVIDERS: ATTEND Orthopaedic Surgery
DX: M17.12 Unilateral primary osteoarthritis, left knee (principal); Z96.651 Presence of right artificial knee joint; Z91.09 Other allergy status, other than to drugs and biological substances; I10 Essential (primary) hypertension; E78.5 Hyperlipidemia, unspecified; J45.909 Unspecified asthma, uncomplicated; G47.33 Obstructive sleep apnea (adult) (pediatric); E11.9 Type 2 diabetes mellitus without complications; F41.9 Anxiety disorder, unspecified; F32.9 Major depressive disorder, single episode, unspecified; K21.9 Gastro-esophageal reflux disease without esophagitis; E03.9 Hypothyroidism, unspecified; Z79.01 Long term (current) use of anticoagulants; Z79.890 Hormone replacement therapy; Z79.899 Other long term (current) drug therapy; Z99.89 Dependence on other enabling machines and devices; M06.9 Rheumatoid arthritis, unspecified; N40.0 Benign prostatic hyperplasia without lower urinary tract symptoms; G89.29 Other chronic pain; Z90.89 Acquired absence of other organs; Z98.890 Other specified postprocedural states; Z98.41 Cataract extraction status, right eye; Z98.42 Cataract extraction status, left eye; Z98.1 Arthrodesis status; Z87.891 Personal history of nicotine dependence; Z79.84 Long term (current) use of oral hypoglycemic drugs; Z79.51 Long term (current) use of inhaled steroids; Z79.82 Long term (current) use of aspirin
CPT/HCPCS: 94640; 97110; 97161; 64448; 76942; 80053; 85025; 73560; 27447; C1776; C1713; J2250; J1100; J0690 ×3; J2405; J3010; J1170 ×2; J2795; 88300

== ENCOUNTER 2021-01-25 08:35 | Day surgery (SDC) | payer MEDICARE ==
[2021-01-21 14:55] VITALS: BMI 35.2
--- NOTE | 2021-01-24 16:48 | HP ---
HISTORY AND PHYSICAL DATE OF SERVICE: Surgery scheduled for 01/25/2021 HISTORY OF PRESENT ILLNESS: Ye Montes is a 65-year-old gentleman seen with persistent right knee adhesions after having previously undergone a total knee arthroplasty. We discussed options. He elected to proceed with manipulation under anesthesia right knee with steroid injection. Consent was obtained. PAST MEDICAL HISTORY: Hypertension, hyperlipidemia, hypothyroidism, insulin-dependent diabetes. PAST SURGICAL HISTORY: Bilateral total knee arthroplasty, left shoulder arthroscopy, bilateral knee arthroscopy. MEDICATIONS: Advair, Lotrel, Synthroid, Cymbalta, Flomax, Lipitor, metformin, Xarelto. ALLERGIES: NONE. SOCIAL HISTORY: Denies tobacco use. PHYSICAL EXAMINATION: Evaluation of the right knee, he has well-healed anterior incisions. Range of motion is -1 to 75. He has quadriceps and hamstring weakness. Ligaments are stable. Hip rotation is without pain. Distal neurovascular exam is intact. RADIOGRAPHS: Right knee radiographs revealed a stable appearing total knee arthroplasty. IMPRESSION: 1. Right knee adhesions. 2. History of right total knee arthroplasty. 3. Hypertension. 4. Hyperlipidemia. 5. Asthma. 6. Kqo-kzznlez-langbmoym diabetes. PLAN: Right knee manipulation under anesthesia with steroid injection. Surgery scheduled for 01/25/2021. MMODL / IJN: [id number] /
[~2021-01-25 08:35] MED LIST changes: -ACETAMINOPHEN TAB 500 MG TAB PO PRN; -DEXAMETHASONE SOD PHOSPHATE 4 MG/ML 1 ML VIAL IV ONE; +LACTATED RINGERS 1,000 ML IV SCH; +LIDOCAINE 1% (10MG/ML) FOR IV START INTRADERMA PRN; -MELOXICAM 7.5 MG TAB PO PRN; -ROPIVACAINE/EPI/CLONIDINE/KET 50 ML SYRINGE MISCELLANE PRN; -TRANEXAMIC ACID 1,000 MG in SODIUM CHLORIDE 0.9% 100 ML IVPB PRN; -ceFAZolin 3 GM in SODIUM CHLORIDE 0.9% 100 ML IVPB PRN
[2021-01-25 09:00] VITALS: RESP 16; TEMP 98.1
[2021-01-25 09:30] LABS: Glucose,Whole Blood 151 mg/dL (75-99)
[2021-01-25] MEDS ORDERED: methylPREDNISolone ACETATE 80 MG/ML 1 ML VIAL INTRAARTIC ONE (09:57)
[2021-01-25] MEDS ORDERED: BUPIVACAIN-EPI 0.25%-1:200,000 30 ML VIAL INTRAARTIC ONE (09:57)
--- NOTE | 2021-01-25 10:03 | P.OP ---
Date of Procedure: 01/25/21 Preoperative Diagnosis: Right knee adhesions Postoperative Diagnosis: Right knee adhesions Procedure(s) Performed: Right knee manipulation under anesthesia with steroid injection Anesthesia: MAC Surgeon: Denton Venegas Estimated Blood Loss (ml): 0 Pathology: none sent Condition: stable Disposition: PACU Indications for Procedure: 65-year-old gentleman seen with persistent right knee adhesions after previously having undergone total knee arthroplasty. We discussed options. He elected to proceed with manipulation under anesthesia right knee with steroid injection. Operative Findings: see description of procedure Description of Procedure: The patient was taken to a monitored anesthesia area. He received preoperative IV antibiotics. He underwent IV sedation by the department of anesthesia. Once sufficient anesthesia was noted I performed a manipulation of the right knee achieving full extension and 130 of flexion with audible tearing of the adhesions. The superior lateral aspect of the knee was prepped and draped in the normal sterile orthopedic fashion. I injected solution of 3 mL quarter percent plain Marcaine and 1 mL Depo-Medrol intra-articular. A sterile Band-Aid was applied. I again took the knee through range of motion. The patient was awakened having tolerated procedure well.
[2021-01-25] MEDS ORDERED: SODIUM CHLORIDE 0.9% 100 ML BAG ONE (10:08)
[2021-01-25] MEDS ORDERED: fentaNYL (PF) 50 MCG/ML 2 ML AMP ONE (10:08)
[2021-01-25] MEDS ORDERED: PROPOFOL 10 MG/ML 20 ML VIAL IV ONE (10:08)
[2021-01-25] MEDS ORDERED: LIDOCAINE 1% INJ 10MG/ML (20 ML MDV) ONE (10:08)
[2021-01-25] MEDS ORDERED: ceFAZolin 1,000 MG VIAL ONE (10:08)
[2021-01-25 11:05] VITALS: BP 150/78; PULSE 67
== END 2021-01-25 11:18 | disposition home or self-care (01) ==
LOC: OR 08:35
PROVIDERS: ATTEND Orthopaedic Surgery
DX: M23.8X1 Other internal derangements of right knee (principal); I10 Essential (primary) hypertension; E78.5 Hyperlipidemia, unspecified; E03.9 Hypothyroidism, unspecified; E11.9 Type 2 diabetes mellitus without complications; J45.909 Unspecified asthma, uncomplicated; G47.33 Obstructive sleep apnea (adult) (pediatric); E07.9 Disorder of thyroid, unspecified; Z98.890 Other specified postprocedural states; Z79.82 Long term (current) use of aspirin; Z79.51 Long term (current) use of inhaled steroids; Z79.01 Long term (current) use of anticoagulants; Z79.84 Long term (current) use of oral hypoglycemic drugs; Z79.890 Hormone replacement therapy; Z79.899 Other long term (current) drug therapy; Z91.048 Other nonmedicinal substance allergy status
CPT/HCPCS: 27570; 20610; J1040; J2405; J0690; J2001; J3010; J2704

== ENCOUNTER → 2021-07-28 | Outpatient (CLI) | payer MEDICARE ==
--- NOTE | 2021-07-28 18:58 | SFUN ---
SLEEP CENTER FOLLOW UP NOTE DATE OF SERVICE: 07/28/2021 This 65-year-old gentleman has been followed in Sleep Center for treatment of obstructive sleep apnea-hypopnea syndrome. The last time I saw this patient was 2 years ago in July of 2019. The patient continued to use his CPAP equipment every night until about one week ago, when his CPAP unit was broken. It fell and the screen is white; it is not readable. The machine is not working. [place] Sleepiness Scale today increased to 12. MEDICATIONS: 1. Lotrel 5/20 mg twice a day. 2. Aspirin 81 mg once a day. 3. Ziac 10/6.25 mg once a day. 4. Diclofenac as needed. 5. Enbrel 50 mg once a day. 6. Flonase once a day. 7. Janumet once a day. 8. Synthroid 150 mcg once a day. 9. Lipitor 10 mg once a day. 10.Oxybutynin twice a day. 11.Pioglitazone. PHYSICAL EXAMINATION: GENERAL: Pleasant patient in no distress. VITAL SIGNS: BP 133/80, HR 56, RR 15, height 5 feet 10-1/2 inches, weight 275 pounds, body mass index 38.9, temperature 97.1, oxygen saturation at room air 97%. HEENT: PERRLA, EOMI, evaluation of oropharynx showed tongue protrudes midline. Extremely low position of soft palate; Mallampati IV. NECK: Supple, no JVD. Thyroid is not palpable. LUNGS: Clear to percussion and to auscultation. Good air exchange. No wheezing or rhonchi. HEART: S1, S2 regular. No murmurs, gallops, or rubs. ABDOMEN: Obese. EXTREMITIES: No clubbing or cyanosis. FOUR HORSE HITCH DRIVER: Awake, alert, and oriented X3. Cranial nerves 2 to 7 intact. There is no fasciculation or atrophy. noted. No focal deficits observed. IMPRESSION: 1. Obstructive sleep apnea-hypopnea syndrome. The patient's CPAP unit is broken and needs to be replaced immediately. 2. Obesity. 3. History of asthma. 4. Depression. 5. History of attention deficit disorder. 6. Nasal septum deviation. 7. History of sciatic nerve problems. 8. Hypothyroidism. 9. Benign prostatic hypertrophy. 10.Status post tonsillectomy. 11.Status post surgical treatment for carpal tunnel syndrome. 12.History of rheumatoid arthritis. PLAN: 1. Prescription to replace CPAP unit. I wrote a prescription for the machine with CPAP pressure at 14 to fix his unit. If the patient gets a new unit, I would prefer AutoPAP with range of the pressure 8 to 15 cm of water. 2. Follow up after patient's machine is fixed or after the patient gets a new unit to check his compliance and apnea-hypopnea index. 3. Sleep hygiene with regular time in bed for 7-1/2 to 8 hours. 4. No driving if feeling sleepiness. 5. Prescription for all necessary CPAP supplies. I wrote him a prescription today also for the mask, filter and tube. 6. Losing weight. Thank you very much for allowing me to participate in the management of your patient. Sincerely, Jluis Schmitt MD, PhD, FAASM Diplomat of [employer] Sleep Medicine Board of [employer] Head Of Marketing of [facility] [place] MMODL / ASCENCIONN: [id number] /
== END ==
LOC: SLEEP 14:12
PROVIDERS: ATTEND Internal Medicine
DX: G47.33 Obstructive sleep apnea (adult) (pediatric) (principal); E66.9 Obesity, unspecified; J45.909 Unspecified asthma, uncomplicated; F90.9 Attention-deficit hyperactivity disorder, unspecified type; J34.2 Deviated nasal septum; E03.9 Hypothyroidism, unspecified; N40.0 Benign prostatic hyperplasia without lower urinary tract symptoms; M06.9 Rheumatoid arthritis, unspecified; F32.A Depression, unspecified; Z99.89 Dependence on other enabling machines and devices; Z87.39 Personal history of other diseases of the musculoskeletal system and connective tissue; Z90.09 Acquired absence of other part of head and neck; Z98.890 Other specified postprocedural states; Z79.899 Other long term (current) drug therapy; Z87.891 Personal history of nicotine dependence; Z91.09 Other allergy status, other than to drugs and biological substances
CPT/HCPCS: 99211

== ENCOUNTER → 2022-01-19 | Outpatient (CLI) | payer MEDICARE ==
--- NOTE | 2022-01-19 19:10 | SFUN ---
SLEEP CENTER FOLLOW UP NOTE DATE OF SERVICE: 01/19/2022 66-year-old gentleman has been followed in Sleep Center for treatment of obstructive sleep apnea-hypopnea syndrome. Today is his first visit after his CPAP unit has been replaced to the new one. The patient likes new machine. It works well for him. He is using it every night. No snoring with the machine. [place] Sleepiness Scale today is 14 which is above normal range. The patient still wakes up from sleep while using his CPAP equipment. I checked his CPAP unit. It is in automatic regimen. Range of the pressure 8-14 cm of water. Usage is 100% of nights for more than 4 hours, average 7 hours 50 minutes with average pressure 95% of the time 13.8, so it is very close to the maximal level. Apnea- hypopnea index is 2.8, which is normal. Leak is 27.3 L/minute, 95% of the time, which is borderline level. MEDICATIONS: Lotrel, aspirin, Ziac, Enbrel, Flonase, Janumet, Synthroid, Lipitor, oxybutynin, pioglitazone. PHYSICAL EXAMINATION: GENERAL: Patient in no distress. BP 159/78, HR 72, RR 16, weight 271.2, temperature 97.4, oxygen saturation at room air 95%. Oropharynx: Extremely low position of soft palate, Mallampati 4. NECK: Supple, no JVD. Thyroid is not palpable. LUNGS: Clear to percussion and to auscultation. Good air exchange. No wheezing or rhonchi. HEART: S1, S2 regular. No murmurs, gallops, or rubs. ABDOMEN: Obese. Soft and nontender. Bowel sounds are present. No organomegaly appreciated. EXTREMITIES: No clubbing or cyanosis. PHARMACOGENETICIST: Awake, alert, and oriented X3. Cranial nerves 2 to 7 intact. There is no fasciculation or atrophy. noted. No focal deficits observed. IMPRESSION: 1. Obstructive sleep apnea-hypopnea syndrome. The patient demonstrated 100% compliance with treatment, benefitting from treatment. He still has some awakenings from sleep. Normal apnea-hypopnea index from the machine, but level of automatic machine most of the time close to the maximal level of pressure. 2. Obesity. 3. History of asthma. 4. Depression. 5. History of attention-deficit disorder. 6. Nasal septum deviation. 7. History of sciatic nerve problems. 8. Hypothyroidism. 9. Benign prostatic hypertrophy. 10.Status post tonsillectomy. 11.Status post surgical treatment for carpal tunnel syndrome. 12.History of rheumatoid arthritis. PLAN: 1. I changed the regimen of auto PAP to the range 8-16 cm of water. 2. Patient will continue to use PAP equipment every night for the whole night. 3. Sleep hygiene with regular time in bed for at least 7-1/2 to 8 hours. 4. Precautions related to driving. No driving if feeling sleepiness. 5. I will maintain all necessary prescription for PAP supplies including mask, tube, filters. 6. Watching weight. 7. Follow-up visit in 6 months or earlier if patient has any problems. Thank you very much for allowing me to participate in management of your patient. Sincerely, Jluis Schmitt MD, PhD, FAASM Diplomat of [employer] Sleep Medicine Board of [employer] Roll Grinder of [facility] [place] MMODL / ASCENCIONN: [id number] /
== END ==
LOC: SLEEP 16:42
PROVIDERS: ATTEND Internal Medicine
DX: G47.33 Obstructive sleep apnea (adult) (pediatric) (principal); E66.9 Obesity, unspecified; J45.909 Unspecified asthma, uncomplicated; F32.A Depression, unspecified; F90.9 Attention-deficit hyperactivity disorder, unspecified type; J34.2 Deviated nasal septum; E03.9 Hypothyroidism, unspecified; N40.0 Benign prostatic hyperplasia without lower urinary tract symptoms; Z90.09 Acquired absence of other part of head and neck; Z87.39 Personal history of other diseases of the musculoskeletal system and connective tissue; Z98.890 Other specified postprocedural states; M06.9 Rheumatoid arthritis, unspecified; Z99.89 Dependence on other enabling machines and devices; Z79.890 Hormone replacement therapy; Z91.09 Other allergy status, other than to drugs and biological substances; Z87.891 Personal history of nicotine dependence

== ENCOUNTER → 2022-03-02 | Outpatient (CLI) | payer MEDICARE ==
[2022-03-02 17:12] LABS: ALT 59 U/L (10-49); AST 29 U/L (14-35); African American GFR (CKD) 101.4 (60.0-200.0); Albumin 4.3 g/dL (3.8-4.9); Albumin/Globulin Ratio 2.05 (1.60-3.17); Alkaline Phosphatase 90 U/L (41-126); BUN/Creat Ratio 21.78 Ratio (12.00-20.00); Blood Urea Nitrogen 19.6 mg/dL (9.0-27.0); Calcium 10.2 mg/dL (8.7-10.3); Carbon Dioxide 26.6 mmol/L (20.0-27.5); Chloride 101 mmol/L (96-109); Chol/HDL Ratio 2.26 Ratio; Globulin 2.1 g/dL (1.6-3.3); Glucose 143 mg/dL (70-110); LDL Cholesterol,Calculated 65.9 mg/dL (0.0-131.0); Non-African American GFR(CKD) 87.5 (60.0-200.0); Sodium 140 mmol/L (135-145); Total Protein 6.4 g/dL (6.2-8.2)
[2022-03-03 01:07] LABS: Urine Creatinine 87.8 mg/dL (39.0-259.0)
== END | disposition home or self-care (01) ==
LOC: LABWHC1 09:05
PROVIDERS: ATTEND Internal Medicine Endocrinology, Diabetes & Metabolism
DX: E11.65 Type 2 diabetes mellitus with hyperglycemia (principal)
CPT/HCPCS: 36415; 80053; 80061; 82043; 82570; 83036; 84443

== ENCOUNTER → 2022-05-31 | Outpatient (CLI) | payer MEDICARE ==
--- NOTE | 2022-05-31 08:50 | CT ---
EXAMINATION TYPE: CT sinus wo con DATE OF EXAM: 05/31/2022 COMPARISON: 10/28/2016 HISTORY: 66-year-old male J32.9, Chronic sinusitis, loss of balance and nausea since having covid thi s past March. CT DLP: 603 mGycm Automated exposure control for dose reduction was used. TECHNIQUE: Noncontrast axial views of the paranasal sinuses were obtained. Coronal and sagittal refor matted images were obtained from the axial views for evaluation of nasal cavity, osteomeatal complex and skull base integrity. FINDINGS: PARANASAL SINUSES: There is now only trace mucosal thickening within the anterior ethmoid air cells and near the bilater al maxillary infundibula. The frontal and sphenoid sinuses are well pneumatized. There is no air-fluid level. Reactive betty- osteogenesis is not seen. There is no destruction of the osseous farley of the paranasal sinuses. THE NASAL CAVITY: The osteomeatal complexes are patent. The nasal septum shows slight leftward deviation. The imaged brain and orbits are normal in appearance. Mastoid air cells and middle ear cavities are well pneumatized. Reformatted images confirm above findings. IMPRESSION: Only trace mucosal thickening remains within the anterior ethmoid air cells and near the bilateral ma xillary infundibula. Improvement in the scattered mild mucosal thickening seen in 2017. Slight leftward nasal septal deviation
== END | disposition home or self-care (01) ==
LOC: RADCTMAIN 07:00
PROVIDERS: ATTEND Family Medicine
DX: J32.9 Chronic sinusitis, unspecified (principal); H53.9 Unspecified visual disturbance; J34.2 Deviated nasal septum
CPT/HCPCS: 70486

== ENCOUNTER → 2022-07-28 | Outpatient (CLI) | payer MEDICARE ==
--- NOTE | 2022-07-28 16:35 | P.PN ---
Subjective DATE: 07/28/2022 FOLLOW UP VISIT. Patient with obstructive sleep apnea hypopnea syndrome return to sleep center for follow-up visit. Information from previous visit have been reviewed. Patient is using PAP equipment every night for the whole night, getting PAP supplies in time. The patient does not have significant problems with the mask, PAP unit and humidification. [place] sleepiness scale is 8, which is in normal range. I checked information from PAP unit. PAP unit pressure 8-16, average 14.9 cm H2O. Usage is 95 % for more then 4 hours, average 8.1 hours per night. Leak is 22 l/m, which is in acceptable range. Apnea Hypopnea Index is 2.7, which is normal. MEDICATIONS:1. Amlodipine/benazepril 2. Lotrel 3. Flonase 4. Levothyroxine 150 g once a day 5. Lipitor 40 mg once a day 6. Metformin 500 mg 3 times a day 7. Oxybutynin 10 mg once a day 8. Xarelto 20 mg once a day During physical exam: GENERAL: A pleasant patient without any distress. VITAL SIGNS: BP 129/81, HR 82, RR 16 , weight 267.2, temperature 97.1, oxygen saturation at room air 95 % . HEENT: PERRLA, EOMI.low position of soft palate, Mallapati 4 . NECK: Supple. No JVD. LUNGS: Clear to percussion and to auscultation. Good air exchange. No wheezing or rhonchi. HEART: S1, S2 regular. ABDOMEN: Soft and nontender. Slightly obese EXTREMITIES: No clubbing or cyanosis. VOCAL PERFORMER: Awake, alert, and oriented x3. No focal deficit. Impressions: 1. Obstructive sleep apnea-hypopnea syndrome. Patient demonstrated great compliance with treatment, benefiting from treatment. 2. Obesity. 3. Depression. 4. History of asthma. 5. History of ADHD. 6. History of septic nerve problems. 7. Hypothyroidism. 8. Nasal septum deviation. 9. BPH. 10. Status post tonsillectomy. 11. History of rheumatoid arthritis. 12. Status post surgical treatment for carpal tunnel syndrome. Plan: 1. Continue using PAP equipment every night for the whole night. 2. To change air filter at least 1-2 times per month. 3. PAP unit should stay lower then position of the head. 4. Advised patient to remove all remaining water from humidifier canister daily and make it dry after each usage. Refill canister with fresh distilled water before each usage. 5. Sleep hygiene with regular time in bed for at least 8 hours. 6. Precautions related to driving. No driving if feel any sleepiness. 7. I will maintain prescription for PAP supplies including mask, tube, filters. 8. Follow up visit in 6 months or earlier if patient has any problems. 9. Watching and losing weight. Thank you very much for allowing me to participate in the management of your patient. Jluis Schmitt MD, PhD, FAASM. Diplomat of [employer], Sleep Medicine Board by [employer] Technical Education Teacher of [facility]
== END ==
LOC: SLEEP 15:23
PROVIDERS: ATTEND Internal Medicine
DX: G47.33 Obstructive sleep apnea (adult) (pediatric) (principal); E66.9 Obesity, unspecified; Z99.89 Dependence on other enabling machines and devices; F32.A Depression, unspecified; Z87.09 Personal history of other diseases of the respiratory system; Z86.59 Personal history of other mental and behavioral disorders; E03.9 Hypothyroidism, unspecified; Z86.61 Personal history of infections of the central nervous system; J34.2 Deviated nasal septum; N40.1 Benign prostatic hyperplasia with lower urinary tract symptoms; Z90.89 Acquired absence of other organs; Z98.890 Other specified postprocedural states; Z87.39 Personal history of other diseases of the musculoskeletal system and connective tissue; Z87.891 Personal history of nicotine dependence; Z91.048 Other nonmedicinal substance allergy status
CPT/HCPCS: 99212

== ENCOUNTER → 2023-01-25 | Outpatient (CLI) | payer MEDICARE ==
[2023-01-25 16:20] LABS: ALT 58 U/L (10-49); AST 41 U/L (14-35); Albumin 4.2 d/dL (3.8-4.9); Albumin/Globulin Ratio 2.21 Ratio (1.60-3.17); Alkaline Phosphatase 86 U/L (41-126); BUN/Creat Ratio 25.88 Ratio (12.00-20.00); Blood Urea Nitrogen 20.7 mg/dL (9.0-27.0); Calcium 9.5 mg/dL (8.7-10.3); Chloride 101 mmol/L (96-109); Chol/HDL Ratio 2.71 Ratio; Globulin 1.9 d/dL (1.6-3.3); Glucose 142 mg/dL (70-110); LDL Cholesterol,Calculated 67.6 mg/dL (0.0-131.0); Potassium 3.6 mmol/L (3.5-5.5); Sodium 142 mmol/L (135-145); Total Bilirubin 0.2 mg/dL (0.3-1.2); Total Protein 6.1 d/dL (6.2-8.2); VLDL Calculation 19.48 mg/dL (5.00-40.00)
[2023-01-25 18:17] LABS: Urine Creatinine 97.1 mg/dL (39.0-259.0)
== END | disposition home or self-care (01) ==
LOC: LABWHC1 07:37
PROVIDERS: ATTEND Internal Medicine Endocrinology, Diabetes & Metabolism
DX: E11.65 Type 2 diabetes mellitus with hyperglycemia (principal)
CPT/HCPCS: 36415; 80053; 80061; 82043; 82570; 83036; 84443

== ENCOUNTER 2023-03-23 18:58 | Emergency (ER) | payer MEDICARE ==
[2023-03-23 19:28] VITALS: TEMP 98.2
[2023-03-23] MEDS ORDERED: MORPHINE SULFATE 4 MG/ML SYRINGE IVP STA ×2 (19:47→20:22)
--- NOTE | 2023-03-23 20:01 | ED ---
General Adult HPI <Jose Keating - Last Filed: 03/23/23 20:57> - General Source: patient, RN notes reviewed Mode of arrival: ambulatory Limitations: no limitations <Kristi Gordon - Last Filed: 03/23/23 23:43> - General Chief complaint: Extremity Injury, Upper Stated complaint: Rt shoulder pain Time Seen by Provider: 03/23/23 19:37 - History of Present Illness Initial comments: 67-year-old male with past medical history significant for hypertension presents the emergency department with a chief complaint of fall. He is complaining of right shoulder and right elbow pain. He reports that he was on a ladder when he lost his footing and fell from approximately 3 feet. He did not hit his head consciousness. Did not take anything prior to arrival. He does take zarelto for anticoagulation. He is complaining of right shoulder and elbow pain that is worse with movement. Denies any numbness, tingling, weakness in the extremity., Headache, nausea, vomiting, dizziness, vision loss (Kristi Gordon) - Related Data Home Medications Medication Instructions Recorded Confirmed Aspirin [Adult Low Dose Aspirin EC] 81 mg PO DAILY 07/24/17 01/21/21 Bisoprolol-Hctz 10-6.25 mg [Ziac 1 tab PO QAM 07/24/17 01/21/21 10-6.25] DULoxetine HCL [Cymbalta] 60 mg PO QAM 07/24/17 01/21/21 Ergocalciferol (Vitamin D2) 50,000 unit PO CARR 07/24/17 01/21/21 [Vitamin D2] Levothyroxine Sodium [Synthroid] 150 mcg PO QAM 07/24/17 01/21/21 Oxybutynin Chloride 10 mg PO HS 07/24/17 01/21/21 buPROPion XL [Wellbutrin Xl] 300 mg PO QAM 07/24/17 01/21/21 Etanercept [Enbrel] 50 mg SQ CARR 01/04/18 01/21/21 sitaGLIPtin PHOS/metFORMIN HCL 1 each PO HS 01/04/18 01/21/21 [Janumet Xr 100-1,000 mg Tablet] Fluticasone Nasal [place] [Flonase 1 spray EA NOSTRIL HS 07/02/18 01/21/21 Nasal [place]] Tamsulosin HCl [Flomax] 0.8 mg PO HS 07/02/18 01/21/21 metFORMIN HCL [Glucophage] 500 mg PO W/BRKFST 07/02/18 01/21/21 Atorvastatin [Lipitor] 20 mg PO HS 07/08/19 01/21/21 Diclofenac Sodium Gel [Voltaren 2 gm TOPICAL QID PRN 07/08/19 01/21/21 Gel] Rivaroxaban [Xarelto] 20 mg PO HS 07/08/19 01/21/21 Ibuprofen 800 mg PO Q6H PRN 08/26/20 01/21/21 amLODIPine BESYLATE/BENAZEPRIL 1 tab PO QAM 08/26/20 01/21/21 [amLODIPine BESYLATE/BENAZEPRIL 5-20 MG] Acetaminophen [Tylenol Extra 1,000 mg PO HS PRN 01/21/21 01/21/21 Strength] Fluticasone Propion/Salmeterol 1 - 2 inhalation PO DAILY 01/21/21 01/21/21 [Advair 250-50 Diskus] Previous Rx's Medication Instructions Recorded HYDROcodone/APAP 5-325MG [[place] 1 tab PO Q6HR PRN #15 tab 01/25/21 5-325] Allergies Allergy/AdvReac Type Severity Reaction Status Date / Time mold AdvReac congestion Verified 01/25/21 09:00 prednisone AdvReac Rash/Hives Verified 03/23/23 19:29 dust AdvReac congestion Uncoded 01/25/21 09:00 pet dander AdvReac itchy Uncoded 01/25/21 09:00 eyes, congestion Review of Systems ROS Other: All systems not noted in ROS Statement are negative. <Jose Keating - Last Filed: 03/23/23 20:57> ROS Other: All systems not noted in ROS Statement are negative. <Kristi Gordon - Last Filed: 03/23/23 23:43> ROS Statement: Those systems with pertinent positive or pertinent negative responses have been documented in the HPI. Past Medical History Past Medical History: Asthma, Diabetes Mellitus, Eye Disorder, Hyperlipidemia, Hypertension, Prostate Disorder, Rheumatoid Arthritis (RA), Sleep Apnea/CPAP/BIPAP, Thyroid Disorder Additional Past Medical History / Comment(s): . Bilateral Keratoconus, uses CPAP, chronic lower back pain. rt knee not bending beyond 70 degrees. recent injury great toe rt foot-bruised and fluid drained History of Any Multi-Drug Resistant Organisms: None Reported Past Surgical History: Back Surgery, Joint Replacement, Orthopedic Surgery, Tonsillectomy Additional Past Surgical History / Comment(s): Bilateral Carpal Tunnel surgery, bilateral meniscus repair, bilateral lasik eye surgery, implant right eye. back fusion 07/2017, colonoscopy, mal[place] knee replacement. mal[place]. rotator cuff rt shoulder x1, lt shoulder x2 Past Anesthesia/Blood Transfusion Reactions: No Reported Reaction Additional Past Anesthesia/Blood Transfusion Reaction / Comment(s): more bleeding than expected with back surgery in 2017 Past Psychological History: Depression Smoking Status: Former smoker - Past Family History Mother Family Medical History: Cancer <Kristi Gordon - Last Filed: 03/23/23 23:43> General Exam Limitations: no limitations <Kristi Gordon - Last Filed: 03/23/23 23:43> - General Exam Comments Initial Comments: General: Alert, in no acute distress Head: atraumatic normocephalic. Eyes PERRL, EOMI intact, mucous membranes moist Respiratory: Lungs clear to auscultation bilaterally Cardiovascular: Heart rate regular and Abdominal: Soft without guarding or rebound Extremities: Right shoulder without crepitus. No evidence of ecchymosis. Limited range of motion secondary to pain. 2+ radial pulses. Distal neurovascu larly intact Neuroogic: alert and oriented 3, CN II-XII intact, able to ambulate with steady gait Skin: warm dry and intact with normal color (Kristi Gordon) Course Vital Signs 03/23/23 03/23/23 03/23/23 19:25 20:35 20:45 Temperature 98.2 F Pulse Rate 82 76 70 Respiratory 20 18 18 Rate Blood Pressure 187/101 158/87 150/107 O2 Sat by Pulse 96 98 98 Oximetry 03/23/23 03/23/23 03/23/23 20:46 20:50 20:55 Temperature Pulse Rate 70 77 82 Respiratory 17 13 17 Rate Blood Pressure 150/105 137/82 151/90 O2 Sat by Pulse 97 94 L 97 Oximetry 03/23/23 03/23/23 03/23/23 21:00 21:15 21:30 Temperature Pulse Rate 80 86 84 Respiratory 18 18 18 Rate Blood Pressure 154/86 158/101 153/82 O2 Sat by Pulse 96 94 L 95 Oximetry 03/23/23 21:45 Temperature Pulse Rate 82 Respiratory 19 Rate Blood Pressure 168/103 O2 Sat by Pulse 95 Oximetry Procedures - Procedural Sedation *Procedural Sedation Start Time: 20:47 *Procedural Sedation Stop Time: 20:50 *Indications: fracture/dislocation reduction *Previous Adverse Reaction to Anesthesia/Sedation?: No *ASA Class: II *Mallampati Airway Score: 2 Preparation: clinical research monitor applied, pulse oximeter, capnometry used, supplemental O2 applied IV Propofol Dose (mgs): 150 Complications: hypoventilation Interventions: assist by BVM Patient Tolerated Procedure: well <Jose Keating - Last Filed: 03/23/23 20:57> - Orthopedic Joint Reduction Joint #1 Consent Obtained: verbal consent, written consent Side: right Joint Reduction Location: shoulder Analgesia: procedural sedation (Propofol ) Amount of Anesthetic Used (mLs): 150 (Dr. Keating at bedside to administer) Shoulder Technique Used (if applicable): traction/counter-traction Technique Used: traction/counter-traction Post-Reduction Neuro Exam: intact Post-Reduction Vascular Exam: intact Post Reduction X-Ray Obtained: Yes Post Reduction X-Ray Results: reduced Splint Applied: No (Sling) Patient Tolerated Procedure: well, no complications <Kristi Gordon - Last Filed: 03/23/23 23:43> - Orthopedic Joint Reduction Joint #1 Additional Comments: Dr. Keating at bedside during the entire procedure (Kristi Gordon) Medical Decision Making <Kristi Gordon - Last Filed: 03/23/23 23:43> - Medical Decision Making Was pt. sent in by a medical professional or institution (, PA, COMMUNICATIONS PROFESSIONAL, urgent care, hospital, or fpc...) When possible be specific @ -[No] Did you speak to anyone other than the patient for history (EMS, parent, family, police, friend...)? What history was obtained from this source @ -[No] Did you review nursing and triage notes (agree or disagree)? Why? @ -[I reviewed and agree with nursing and triage notes] Were old charts reviewed (outside hosp., previous admission, EMS record, old EKG, old radiological studies, urgent care reports/EKG's, fpc records)? Report findings @ -[No old charts were reviewed] Differential Diagnosis (chest pain, altered mental status, abdominal pain women, abdominal pain men, vaginal bleeding, weakness, fever, dyspnea, syncope, headache, dizziness, GI bleed, back pain, seizure, CVA, palpatations, mental health, musculoskeletal)? @ -[not applicable] EKG interpreted by me (3pts min.). @ -[As above] X-rays interpreted by me (1pt min.). @ -Initial x-ray reveals anterior dislocated shoulder Secondary x-ray reveals successful reduction CT interpreted by me (1pt min.). @ -[None done] U/S interpreted by me (1pt. min.). @ -[None done] What testing was considered but not performed or refused? (CT, X-rays, U/S, labs)? Why? @ -[None] What meds were considered but not given or refused? Why? @ -[None] Did you discuss the management of the patient with other professionals (professionals i.e. , PA, COMMUNICATIONS PROFESSIONAL, lab, RT, psych nurse, social research assistant, branch service representative, t eacher, community reinvestment act officer, rn field case manager)? Give summary @ -[No] Was smoking cessation discussed for >3mins.? @ -[No] Was critical care preformed (if so, how long)? @ -[No] Were there social determinants of health that impacted care today? How? (Homelessness, low income, unemployed, alcoholism, drug addiction, transportation, low edu. Level, literacy, decrease access to med. care, residential, rehab)? @ -[No] Was there de-escalation of care discussed even if they declined (Discuss DNR or withdrawal of care, Hospice)? DNR status @ -[No] What co-morbidities impacted this encounter? (DM, HTN, Smoking, COPD, CAD, Cance r, CVA, ARF, Chemo, Hep., AIDS, mental health diagnosis, sleep apnea, morbid obesity)? @ -[None] Was patient admitted / discharged? Hospital course, mention meds given and route, prescriptions, significant lab abnormalities, going to OR and other pertinent info. @ -Discharge. This is a pleasant 67-year-old male presents the emerg ency department with right shoulder pain after a fall. Patient had a thorough history and physical exam performed on the emergency department. Physical exam reveals limited range of motion of right shoulder. Distal vascularly intact. Initial x-ray reveals anterior sentinel no humeral joint dislocation with potential underlying rotator cuff tear. Patient had conscious sedation procedure performed and joint reduction performed while in the ED. Subsequent shoulder x-ray reveals that the joint was successfully reduced. I discussed the results in detail with the patient verbalized understanding all questions were addressed. Return precautions were discussed at length. With recommend close follow-up with orthopedics in 1-2 days. Patient was placed in a sling and given Tylenol 3's for pain. Case discussed with JACOB Watson who agrees with plan of care Undiagnosed new problem with uncertain prognosis? @ -[No] Drug Therapy requiring intensive monitoring for toxicity (Heparin, Nitro, Insulin, Cardizem)? @ -[No] Were any procedures done? @ -[No] Diagnosis/symptom? @ -Right Shoulder Dislocation Acute, or Chronic, or Acute on Chronic? @ -Acute Uncomplicated (without systemic symptoms) or Complicated (systemic symptoms)? @ -Uncompplicated Side effects of treatment? @ -[No] Exacerbation, Progression, or Severe Exacerbation? @ -[No] Poses a threat to life or bodily function? How? (Chest pain, [place], [place], pneumonia, PE, COPD, DKA, ARF, appy, cholecystitis, CVA, Diverticulitis, Homicidal, Suicidal, threat to staff... and all critical care pts) @ -Low likelihood (Kristi Gordon) Disposition <Jose Keating - Last Filed: 03/23/23 20:57> Is patient prescribed a controlled substance at d/c from ED?: No Time of Disposition: 22:04 <Kristi Gordon - Last Filed: 03/23/23 23:43> Clinical Impression: Dislocation of shoulder region Disposition: HOME SELF-CARE Condition: Stable Instructions (If sedation given, give patient instructions): Shoulder Dislocation (ED) Additional Instructions: Please follow-up with Dr. Venegas sometime this week Please return to the nearest emergency department if symptoms worsen or persist Referrals: Eliza Davenport MD [Primary Care Provider] - 1-2 days
--- NOTE | 2023-03-23 20:10 | XR ---
EXAMINATION TYPE: XR chest 2V DATE OF EXAM: 03/23/2023 COMPARISON: None HISTORY: 67-year-old male with pain TECHNIQUE: PA and lateral views FINDINGS: Heart upper limits of normal in size. Mild interstitial prominence. Mild hyperinflation. No consolida tion, pneumothorax, or pleural effusion. IMPRESSION: Possible underlying COPD. No acute process seen.
--- NOTE | 2023-03-23 20:12 | XR ---
EXAMINATION TYPE: XR shoulder complete 3 views RT DATE OF EXAM: 03/23/2023 Comparison: None Clinical History: 67-year-old male shoulder pain Findings: Moderate degenerative change AC joint. There is anterior subcoracoid glenohumeral joint dislocation. Degenerative change of the glenohumeral joint with a 1.3 cm loose body in the subcoracoid recess. Impression: Acute anterior subcoracoid glenohumeral joint dislocation. There is underlying glenohumeral joint ost eoarthrosis with a 1.3 cm loose body in the subcoracoid recess. Moderate AC joint OA.
[2023-03-23] MEDS ORDERED: PROPOFOL 10 MG/ML 20 ML VIAL IV ONE (20:22)
[2023-03-23] MEDS ORDERED: MORPHINE SULFATE 4 MG/ML SYRINGE IM STA (20:23)
[2023-03-23] MEDS ORDERED: SODIUM CHLORIDE 0.9% 1,000 ML IV ONE (20:32)
--- NOTE | 2023-03-23 20:34 | XR ---
EXAMINATION TYPE: XR elbow limited RT DATE OF EXAM: 03/23/2023 COMPARISON: NONE HISTORY: 67-year-old male with elbow pain after fall injury TECHNIQUE: 2 views FINDINGS: There is moderate degenerative change at both the radiocapitellar and ulnar trochlear joint. Suboptim al lateral view for assessment of elbow joint effusion. No obvious elevation of the posterior fat pad . No displaced fracture seen. Mild posterior lacrimal soft tissue swelling. IMPRESSION: Moderate osteoarthrosis of the elbow. Mild posterior olecranon soft tissue swelling. Suboptimal later al view for assessment of joint effusion. Repeat the lateral view if indicated. No displaced fracture seen.
--- NOTE | 2023-03-23 21:45 | XR ---
EXAMINATION TYPE: XR shoulder limited RT DATE OF EXAM: 03/23/2023 COMPARISON: Earlier today HISTORY: 67-year-old male postreduction exam TECHNIQUE: Single AP view FINDINGS: Interval satisfactory reduction of the glenohumeral joint. There is some degenerative spurr ing at the glenohumeral joint. At least mild degenerative change of the AC joint as well. Capsular hy pertrophy is suggested. Somewhat rounded contour of the greater tuberosity. IMPRESSION: 1. Interval satisfactory reduction of the glenohumeral joint. 2. Suspect an underlying rotator cuff tear. Recommend orthopedic follow-up for further assessment/man agement. 3. At least mild degenerative change at the AC joint. Slight widening may be on a chronic basis. No a bnormal offset to suggest a significant AC joint sprain. 4. At least mild underlying glenohumeral joint OA.
[2023-03-23 21:49] VITALS: BP 168/103; PULSE 82; RESP 19
== END 2023-03-23 22:26 | disposition home or self-care (01) ==
LOC: EC 18:58
DX: S43.004A Unspecified dislocation of right shoulder joint, initial encounter (principal); J45.909 Unspecified asthma, uncomplicated; E11.9 Type 2 diabetes mellitus without complications; E78.5 Hyperlipidemia, unspecified; I10 Essential (primary) hypertension; M06.9 Rheumatoid arthritis, unspecified; E07.9 Disorder of thyroid, unspecified; F32.A Depression, unspecified; Z87.891 Personal history of nicotine dependence; Z88.8 Allergy status to other drugs, medicaments and biological substances; Z91.048 Other nonmedicinal substance allergy status; Z79.82 Long term (current) use of aspirin; Z79.84 Long term (current) use of oral hypoglycemic drugs; Z79.51 Long term (current) use of inhaled steroids; Z79.890 Hormone replacement therapy; Z79.899 Other long term (current) drug therapy; W11.XXXA Fall on and from ladder, initial encounter
CPT/HCPCS: 73020; 73030; 73070; 71046; 99284; 96374; 96361; 96372; 23650; J2270; J2704

== ENCOUNTER → 2023-05-30 | Outpatient (CLI) | payer MEDICARE ==
--- NOTE | 2023-05-30 23:43 | MR ---
EXAMINATION TYPE: MR shoulder RT wo con DATE OF EXAM: 05/30/2023 COMPARISON: Outside right shoulder x-ray May 23, 2023 HISTORY: Right shoulder pain, Rt shoulder was dislocated 6 weeks ago TECHNIQUE: Multiplanar, multisequence imaging of the right shoulder is performed without contrast. FINDINGS: Rotator Cuff: Full-thickness retracted tear of the supraspinatus and infraspinatus tendons. There is at least moderate muscular atrophy. There is severe muscular atrophy of the teres minor muscle. Acromioclavicular Joint: Mild to moderate spurring. And glenohumeral Joint effusion extends into the acromial navicular joint Glenohumeral Joint: Moderate to large size joint effusion with narrowing. Some superior shifting of t he humeral head is noted. Labrum: The superior labrum is not well identified and presumed torn. Biceps Tendon: The long head of biceps is in normal location within bicipital groove. Intracapsular p ortion not well seen, their from the labral anchor suspected. Bone marrow signal: There is artifact from prior rotator cuff surgery in the humeral head coronal riri ge 14 for reference. Other: No additional significant abnormality is appreciated. IMPRESSION: 1. Despite suspected prior rotator cuff surgery there are significant recurrent full-thickness retrac gutierrez tears of the supraspinatus and infraspinatus tendons. There is rotator cuff muscular atrophy. 2. There is superior labral tear and tearing of the attachment of the long head of biceps tendon.
== END | disposition home or self-care (01) ==
LOC: RADMRIMAIN 20:15
PROVIDERS: ATTEND Orthopaedic Surgery
DX: M62.50 Muscle wasting and atrophy, not elsewhere classified, unspecified site (principal); M75.111 Incomplete rotator cuff tear or rupture of right shoulder, not specified as traumatic; M25.511 Pain in right shoulder

== ENCOUNTER → 2023-07-15 | Outpatient (CLI) | payer MEDICARE ==
[2023-07-15 22:49] LABS: Basophils # (A) 0.05 X 10*3/uL (0.00-0.10); Basophils % (A) 0.6 %; Eosinophils # (A) 0.15 X 10*3/uL (0.04-0.35); Eosinophils % (A) 1.9 %; HCT 48.5 % (39.6-50.0); HGB 15.6 g/dL (13.0-17.0); Lymphocytes # (A) 1.47 X 10*3/uL (0.90-5.00); Lymphocytes % (A) 18.7 %; MCH 29.5 pg (27.0-32.0); MCHC 32.2 g/dL (32.0-37.0); MCV 91.9 FL (80.0-97.0); Monocytes # (A) 0.84 X 10*3/uL (0.20-1.00); Monocytes % (A) 10.7 %; NRBC Per 100 WBC 0 X 10*3/uL (0.00-0.01); Neutrophils # (A) 5.35 X 10*3/uL (1.80-7.70); Neutrophils % (A) 67.8 %; Platelet Count 207 X 10*3/uL (140-440); RBC 5.28 X 10*6/uL (4.40-5.60); RDW 13.4 % (11.5-14.5); WBC 7.88 X 10*3/uL (4.50-10.00)
[2023-07-15 23:30] LABS: BUN/Creat Ratio 22.86 Ratio (12.00-20.00); Calcium 10.2 mg/dL (8.7-10.3); Carbon Dioxide 25.9 mmol/L (21.6-31.8); Chloride 103 mmol/L (96-109); Glucose 150 mg/dL (70-110); Potassium 3.8 mmol/L (3.5-5.5); Sodium 142 mmol/L (135-145)
== END | disposition home or self-care (01) ==
LOC: LABPAT 09:05
PROVIDERS: ATTEND Orthopaedic Surgery
DX: Z01.812 Encounter for preprocedural laboratory examination (principal); M75.41 Impingement syndrome of right shoulder
CPT/HCPCS: 80048; 85025

== ENCOUNTER 2023-07-20 08:47 | Day surgery (SDC) | payer MEDICARE ==
--- NOTE | 2023-07-20 00:17 | HP ---
HISTORY AND PHYSICAL HISTORY OF PRESENT ILLNESS: The patient is a 67-year-old gentleman, who was seen with progressive right shoulder pain having treatment options discussed with him post right shoulder arthroscopy. Consent was obtained. Cardiac clearance was provided by Dr. Monaco. PAST MEDICAL HISTORY: Cardiovascular disease, asthma, hypertension, [id number] diabetes, hyperlipidemia. PAST SURGICAL HISTORY: Bilateral shoulder arthroscopy, bilateral knee arthroscopy, right total knee arthroplasty. MEDICATIONS: Advair inhaler, Synthroid, Lotrel, Ziac, Flomax, Lipitor, metformin. ALLERGIES: None. SOCIAL HISTORY: He denies tobacco use. PHYSICAL EXAMINATION: EXTREMITIES: Evaluation of the right shoulder, flexion is 140 degrees, abduction is 130 degrees. External rotation is 20 degrees with severe weakness. Tenderness along the anterolateral acromion and rotator cuff insertion. Impingement is positive at 90 degrees. Drop-arm sign is positive. Distal neurovascular exam is intact. IMAGING STUDIES: Radiographs of the right shoulder revealed a flat acromion. MRI right shoulder revealed a large retracted rotator cuff tendon tear. IMPRESSION: 1. Right shoulder rotator cuff tear. 2. Hypertension. 3. Hyperlipidemia. 4. Non-insulin dependent diabetes. 5. Cardiovascular disease. PLAN: Right shoulder arthroscopy with rotator cuff repair and debridement. MMODL / IJN: [id number] /
[~2023-07-20 08:47] MED LIST changes: -LIDOCAINE 1% (10MG/ML) FOR IV START INTRADERMA PRN
[2023-07-20 09:38] VITALS: RESP 16
[2023-07-20 10:04] LABS: Glucose,Whole Blood 158 mg/dL (70-110)
[2023-07-20] MEDS ORDERED: MIDAZOLAM 2 MG/2 ML VIAL IVP ONE (10:04)
[2023-07-20] MEDS ORDERED: fentaNYL (PF) 50 MCG/1 ML VIAL IVP ONE (10:04)
[2023-07-20] MEDS ORDERED: NEOSTIGMINE 1 MG/ML 10 ML VIAL ONE (10:30)
[2023-07-20] MEDS ORDERED: GLYCOPYRROLATE 0.2 MG/ML 2 ML VIAL ONE (10:30)
[2023-07-20] MEDS ORDERED: PROPOFOL 10 MG/ML 20 ML VIAL IV ONE (10:30)
[2023-07-20] MEDS ORDERED: SUCCINYLCHOLINE CHLORIDE 200 MG/10 ML VIAL IV ONE (10:30)
[2023-07-20] MEDS ORDERED: fentaNYL (PF) 50 MCG/ML 2 ML AMP ONE (10:30)
[2023-07-20] MEDS ORDERED: MIDAZOLAM 2 MG/2 ML VIAL ONE (10:30)
[2023-07-20] MEDS ORDERED: WATER FOR INJECTION, STERILE 10 ML VIAL IV ONE (10:30)
[2023-07-20] MEDS ORDERED: ROPIVACAINE 5 MG/ML 30 ML VIAL ONE (10:30)
[2023-07-20] MEDS ORDERED: ROCURONIUM 10 MG/ML (5 ML VIAL) IV ONE (10:30)
[2023-07-20] MEDS ORDERED: ePHEDrine 50 MG/ML 1 ML VIAL ONE (10:30)
[2023-07-20] MEDS ORDERED: LACTATED RINGERS 1,000 ML IV ONE (11:30)
--- NOTE | 2023-07-20 12:09 | P.OP ---
Date of Procedure: 07/20/23 Preoperative Diagnosis: Right shoulder rotator cuff tear Postoperative Diagnosis: 1. Right shoulder rotator cuff tear 2. Right shoulder impingement Procedure(s) Performed: 1. Right shoulder arthroscopic rotator cuff repair 2. Right shoulder arthroscopic subacromial decompression Implants: 1Arthrex 4.75 swivel lock anchor Anesthesia: GETA, regional (Interscalene block) Surgeon: Denton Vengeas Link Trainer Maintenance Worker #1: Richie Calvert Estimated Blood Loss (ml): 11 Pathology: none sent Condition: stable Disposition: PACU Indications for Procedure: 67-year-old gentleman who was seen with progressive right shoulder pain. After treatment options were discussed, he elected to proceed with arthroscopy. Operative Findings: See description of procedure Description of Procedure: Patient underwent an interscalene block by department of anesthesia. The patient was then taken to the operative suite. The patient underwent a general anesthetic by the department of anesthesia. The patient was placed into a lateral position and secured. There was appropriate padding of the bony prominence. Right shoulder was then prepped and draped in normal sterile orthopedic fashion. We placed the extremity in 10 pounds of longitudinal traction. A posterior incision was now made for a posterior working portal site. The trocar and cannula were inserted into the glenohumeral joint. Arthroscopy was initiated. Spinal needle was now inserted anteriorly, to ascertain the anterior working portal site. An incision was now made in that area, a trocar was inserted followed by a probe. The biceps tendon was absent. The labrum was stable. There were grade 2 chondromalacia changes throughout the glenohumeral joint without tears. I did note a very large rotator cuff tendon tear. At this point instruments removed from the glenohumeral joint. Utilizing the posterior working portal site, the trocar and cannula were inserted into the subacromial space. Arthroscopy initiated. I made an incision 2 fingerbreadths lateral to the acromion. I introduced my trocar followed by my ArthroCare ablator. I now began ablating thick subacromial bursal tissue, which exposed the undersurface of the anterior acromion. There was some residual spurs along the undersurface of the anterior acromion. I performed a subacromial decompression. We had a good-appearing subacromial decompression. The acromioclavicular joint was stable. I now turned my attention to the rotator cuff tendon. There was a very large retracted rotator cuff tendon tear with significant residual sutures along the footprint. I debrided out all the sutures along the footprint area. I now began releasing the rotator cuff tendon as it was scarred down anteriorly in the central portion. Once I completed this also unable to get the tendon along the footprint but I was able to mobilize the posterior tendon to perform a [id number] repair and good coverage over the humeral head. With the assistance of Richie GOSS passed for [id number] sutures which close interval nicely. I now abraded the footprint with a motorized bur. I passed 2 additional everted mattress sutures through good bites of rotator cuff tendon. I now punched on the footprint area for insertion of an anchor. All 4 limbs of suture were passed through the eyelet of a 4.75 swivel lock anchor. I placed the eyelet into our pre-punch hole. I held it in position while Richie EDWARDS tensioned all 4 limbs of suture and deployed the anchor with good fixation noted. Residual suture limbs were clipped. The repair was under a fair amount of tension but it was stable. We had good compression of the tendon along the entire footprint. Instruments now removed from the portal sites. All portal sites were approximated with nylon suture. Sterile dressings were applied followed by a shoulder immobilizer. Richie Hope assisted in this complex case. The patient was awakened, transferred to a bed, and taken to recovery in stable condition. The patient's prognosis is guarded given this large massive retracted tear.
[2023-07-20 12:17] VITALS: TEMP 97
--- NOTE | 2023-07-20 13:09 | P.ANPRN ---
Procedure Note - Anesthesia - Nerve Block Performed Right Interscalene Single Time Out Performed: Yes (1006) Date of Procedure: 07/20/23 Procedure Start Time: 10:07 Procedure Stop Time: 10:12 Location of Patient: PreOp Indication: Acute Post-Operative Pain, Requested by Surgeon Specifically requested for management of pain by DrHarshad: Denton Venegas Sedation Type: Sedate with meaningful contact maintained Preparation: Sterile Prep Position: Supine Catheter: None Needle Types: [place]unk Needle Gauge: 21 Ultrasound used to visualize needle placement: Yes Ultrasound used to observe medication spread: Yes Injectate: 0.5% Ropivacaine (see comment for volume) (30cc) Blood Aspirated: No Pain Paresthesia on Injection Noted: No Resistance on Injection: Normal Image Stored and Saved: Yes Events: Uneventful and Well Tolerated
[2023-07-20 13:48] VITALS: PULSE 73
[2023-07-20 14:11] VITALS: BP 130/74
== END 2023-07-20 14:37 | disposition home or self-care (01) ==
LOC: OR 08:47
PROVIDERS: ATTEND Orthopaedic Surgery
DX: M75.101 Unspecified rotator cuff tear or rupture of right shoulder, not specified as traumatic (principal); M75.41 Impingement syndrome of right shoulder; G89.18 Other acute postprocedural pain; I25.10 Atherosclerotic heart disease of native coronary artery without angina pectoris; J45.909 Unspecified asthma, uncomplicated; I10 Essential (primary) hypertension; E11.9 Type 2 diabetes mellitus without complications; G47.33 Obstructive sleep apnea (adult) (pediatric); E78.5 Hyperlipidemia, unspecified; E07.9 Disorder of thyroid, unspecified; N40.0 Benign prostatic hyperplasia without lower urinary tract symptoms; M06.9 Rheumatoid arthritis, unspecified; Z87.891 Personal history of nicotine dependence; Z79.51 Long term (current) use of inhaled steroids; Z79.84 Long term (current) use of oral hypoglycemic drugs; Z79.890 Hormone replacement therapy; Z79.899 Other long term (current) drug therapy; Z91.048 Other nonmedicinal substance allergy status; Z91.011 Allergy to milk products; Z91.018 Allergy to other foods; Z88.8 Allergy status to other drugs, medicaments and biological substances
CPT/HCPCS: 64415; 29827; 29826; C1713 ×2; J2250; J0330; J2710; J0690; J2405; J3010 ×2; J2795; J2704

== ENCOUNTER → 2023-07-27 | Outpatient (CLI) | payer MEDICARE ==
--- NOTE | 2023-07-27 17:36 | P.PN ---
Subjective DATE: 07/27/2023 FOLLOW UP VISIT. Patient with obstructive sleep apnea hypopnea syndrome return to sleep center for follow-up visit. Information from previous visit have been reviewed. Patient is using PAP equipment every night for the whole night, getting PAP supplies in time. The patient does not have significant problems with the mask, PAP unit and humidification. [place] sleepiness scale is slightly increased to 11. I checked information from PAP unit. PAP unit pressure 8-16, average 15.3 cm H2O. Usage is 100 % for more then 4 hours, average 9.3 hours per night. Leak is slightly increased to 30.5 l/m. Apnea Hypopnea Index is 1.0, which is normal. MEDICATIONS:1. Synthroid 150 g once a day 2. Prozac 3. Ziac 4. Advair 5. Lotrel 6. Metformin 7. Oxybutynin During physical exam: GENERAL: A pleasant patient without any distress. VITAL SIGNS: BP 158/79, HR 76 RR 16 weight 273, temperature 98.0, oxygen saturation at room air 96 % . HEENT: PERRLA, EOMI.low position of soft palate, Mallapati 4 . NECK: Supple. No JVD. LUNGS: Clear to percussion and to auscultation. Good air exchange. No wheezing or rhonchi. HEART: S1, S2 regular. ABDOMEN: Soft and nontender.slightly obese EXTREMITIES: No clubbing or cyanosis. MOVER: Awake, alert, and oriented x3. No focal deficit. Impressions: 1. Obstructive sleep apnea-hypopnea syndrome. Patient demonstrated great compliance with treatment, benefiting from treatment. 2. Obesity, BMI 38.6, patient increased weight of 6 pounds. 3. Asthma. 4. Depression. 5. History of ADHD. 6. Hypothyroidism. 7. Nasal septum deviation. 8. BPH. 9. History of rheumatoid arthritis. 10. Status post tonsillectomy. Plan: 1. Continue using PAP equipment every night for the whole night. 2. To change air filter at least 1-2 times per month. 3. PAP unit should stay lower then position of the head. 4. Advised patient to remove all remaining water from humidifier canister daily and make it dry after each usage. Refill canister with fresh distilled water before each usage. 5. Sleep hygiene with regular time in bed for at least 8 hours. 6. Precautions related to driving. No driving if feel any sleepiness. 7. I will maintain prescription for PAP supplies including mask, tube, filters. 8. Watching and losing weight. 9. Follow up visit in 6 months or earlier if patient has any problems. Thank you very much for allowing me to participate in the management of your patient. Jluis Schmitt MD, PhD, FAASM. Diplomat of [place] [employer], Sleep Medicine Board by [place] [employer] Executive Housekeeper of [facility] [place]
== END ==
LOC: 3 N SLEEP 15:55
PROVIDERS: ATTEND Internal Medicine
DX: G47.33 Obstructive sleep apnea (adult) (pediatric) (principal); E66.9 Obesity, unspecified; F32.A Depression, unspecified; J45.909 Unspecified asthma, uncomplicated; E03.9 Hypothyroidism, unspecified; J34.2 Deviated nasal septum; N40.0 Benign prostatic hyperplasia without lower urinary tract symptoms; M06.9 Rheumatoid arthritis, unspecified; Z68.38 Body mass index [BMI] 38.0-38.9, adult; Z90.89 Acquired absence of other organs; F90.9 Attention-deficit hyperactivity disorder, unspecified type; Z99.89 Dependence on other enabling machines and devices; Z79.890 Hormone replacement therapy; Z79.51 Long term (current) use of inhaled steroids; Z91.048 Other nonmedicinal substance allergy status; Z88.8 Allergy status to other drugs, medicaments and biological substances; Z91.018 Allergy to other foods; Z87.891 Personal history of nicotine dependence
CPT/HCPCS: 99212

== ENCOUNTER → 2023-10-09 | Outpatient (CLI) | payer MEDICARE ==
--- NOTE | 2023-10-09 16:15 | CT ---
EXAMINATION TYPE: CT sinus wo con DATE OF EXAM: 10/09/2023 COMPARISON: 05/31/2022 HISTORY: sinusitis CT DLP: 643 mGycm. Automated Exposure Control for Dose Reduction was Utilized. TECHNIQUE: CT scan of the sinuses is performed without contrast, axial images are obtained, coronal r eformatted images are also reviewed. FINDINGS: The paranasal sinuses including the frontal, ethmoid, sphenoid, and maxillary sinuses bila terally are well-aerated without abnormal opacification. The ostiomeatal complex is patent bilateral ly on the coronal images. There are no air-fluid levels to suggest acute sinusitis. Visualized portion of mastoid air cells show no abnormal opacification. The globes are intact bilate rally. The osseous farley of the paranasal sinuses are intact. The nasal cavity is unremarkable IMPRESSION: No significant abnormality seen with no significant interval change.
== END | disposition home or self-care (01) ==
LOC: RADCTMAIN 15:38
PROVIDERS: ATTEND Family Medicine
DX: J32.4 Chronic pansinusitis (principal); G50.1 Atypical facial pain; R43.8 Other disturbances of smell and taste
CPT/HCPCS: 70486

== ENCOUNTER → 2023-10-17 | Outpatient (CLI) | payer MEDICARE ==
--- NOTE | 2023-10-17 10:27 | MR ---
EXAMINATION TYPE: MR brain wo/w con DATE OF EXAM: 10/17/2023 10:10 AM CLINICAL INDICATION:Male, 67 years old with history of G50.1 ATYPICAL FACIAL PAIN; PHH, Atypical faci al pain, persistent headaches. COMPARISON: 10/09/2023 TECHNIQUE: Multi planar, multi sequence imaging was performed through the brain including: T1, T2, In version recovery, susceptibility weighted imaging and gradient echo imaging and Diffusion weighted im aging. The patient was then given intravenous contrast and multi planar, T1 fat-saturation images wer e obtained. IV Contrast: 11 cc Gadavist FINDINGS: The burt-white junctions, ventricular system, basal cisterns appear unremarkable. Diffusion-weighted imaging shows no evidence of restricted diffusion to suggest acute/subacute infarct. Intracranial ar terial flow voids are maintained. Midline structures show no abnormality. Scattered foci of high T2 s ignal intensity are seen within the periventricular white matter. The susceptibility weighted images demonstrate 2 foci of blooming artifact within the basal ganglia suggestive of microhemorrhage.. Afte r administration of gadolinium, no abnormal enhancement is seen. Dolichoectasia of the basilar artery. The bone marrow signal is within normal limits. Paranasal sinuses and mastoid air cells: No significant paranasal sinus disease. Visualized orbits: Bilateral aphakia IMPRESSION: 1. No evidence of intracranial mass, acute/subacute infarct, or abnormal enhancement. 2. Nonspecific white matter changes, likely related to small vessel ischemic disease.
== END | disposition home or self-care (01) ==
LOC: RADMRIMAIN 09:24
PROVIDERS: ATTEND Family Medicine
DX: G44.52 New daily persistent headache (NDPH) (principal); G50.1 Atypical facial pain; G31.89 Other specified degenerative diseases of nervous system
CPT/HCPCS: 70553; A9585

== ENCOUNTER → 2023-10-25 | Outpatient (CLI) | payer MEDICARE ==
[2023-10-25 13:22] LABS: African American GFR (CKD) >90 (>60 ml/min/1.73 sqM); Blood Urea Nitrogen 20 mg/dL (9-20); Non-African American GFR(CKD) >90 (>60 ml/min/1.73 sqM)
--- NOTE | 2023-10-25 14:57 | CT ---
EXAMINATION: CT ABDOMEN AND PELVIS WITH IV CONTRAST DATE OF EXAMINATION: 10/25/2023. COMPARISON: None available. INDICATION: Constipation with abdominal pain and bloating. PROCEDURE: Axial CT of the abdomen and pelvis was performed with contrast and sagittal and coronal reformatted images were performed. CT dose lowering techniques were used, to include: automated expos ure control, adjustment for patient size, and/or use of iterative reconstruction. 85 mL of Isovue-370 was given intravenously. FINDINGS: LOWER CHEST : The visualized lung bases are clear. There are no pleural or pericardial effusions. ABDOMEN: Liver and Biliary system: The liver is enlarged measuring 20 cm in craniocaudal dimension. There is diffuse decreased attenuation of the liver which is compatible with fatty liver infiltration. No foca l liver lesions are seen. Adrenal glands: Normal. Kidneys and ureters: Normal. Spleen: Normal. Pancreas: Normal. Gallbladder: Normal. Lymph nodes, Peritoneum and mesentery: There is no mesenteric or retroperitoneal lymphadenopathy. Gastrointestinal tract: There are no dilated loops of bowel or free intraperitoneal air. The appe ndix is not clearly seen with no secondary changes of appendicitis otherwise identified. There is mod erate descending colonic and sigmoid colonic diverticulosis without evidence of diverticulitis. There is a moderate amount of stool seen throughout the colon. Aorta/IVC: No aortic aneurysm. IVC normal. Abdominal wall: Normal. PELVIS: Fluid: There is no free fluid in the pelvis. Lymph Nodes: There is no pelvic or inguinal lymphadenopathy.. Urinary bladder: Normal. BONES: There are posterior spinal fusion changes between L3 and L5. There are no acute osseous abnor malities. ADDITIONAL SIGNIFICANT FINDINGS: None. IMPRESSION: 1. No acute process seen within the abdomen or pelvis. 2. Diverticulosis without evidence of diverticulitis. 3. Moderate stool throughout the colon. 4. Hepatomegaly with hepatic steatosis.
== END | disposition home or self-care (01) ==
LOC: RADCTMAIN 12:32
PROVIDERS: ATTEND Family Medicine
DX: K76.0 Fatty (change of) liver, not elsewhere classified (principal); K57.30 Diverticulosis of large intestine without perforation or abscess without bleeding; K59.00 Constipation, unspecified; R16.0 Hepatomegaly, not elsewhere classified; M06.9 Rheumatoid arthritis, unspecified; R14.0 Abdominal distension (gaseous); R40.0 Somnolence
CPT/HCPCS: 82565; 84520; 74177; 36415; Q9967

== ENCOUNTER 2023-12-06 08:55 | Day surgery (SDC) | payer MEDICARE ==
[2023-12-04 12:00] VITALS: BMI 35.4
[2023-12-06] MEDS ORDERED: PROPOFOL 10 MG/ML 20 ML VIAL IV ONE (09:35)
[2023-12-06] MEDS ORDERED: LIDOCAINE 1% INJ 10MG/ML (20 ML MDV) ONE (09:35)
[2023-12-06 09:36] LABS: Glucose,Whole Blood 139 mg/dL (70-110)
[2023-12-06] MEDS: LACTATED RINGERS 1,000 ML IV ONE ×2 (09:37→09:56)
[2023-12-06 09:50] VITALS: TEMP 98
--- NOTE | 2023-12-06 09:57 | P.PCN ---
Date of Procedure: 12/06/23 Procedure(s) Performed: BRIEF HISTORY: Patient is a 67year-old pleasant White male scheduled for an elective colonoscopy as a part of Evaluation of change in bowel habits. He was initially having constipation for the last 10 days has been having severe diarrhea. PROCEDURE PERFORMED: Colonoscopy with random biopsies. PREOPERATIVE DIAGNOSIS: Change in bowel habits IV sedation per Anesthesia. PROCEDURE: After informed consent was obtained, the patient, was brought into the endoscopy unit. IV sedation was administered by Anesthesia under continuous monitoring. Digital rectal examination was normal. Initially the Olympus CF-160 flexible video colonoscope was then inserted in the rectum, gradually advanced into the cecum without any difficulty. Careful examination was performed as the scope was gradually being withdrawn. Ileocecal valve and the appendiceal orifice were visualized and appeared normal. Prep was Poor and several areas of the colon. Thorough irrigation was performed.. Mucosa of the cecum, ascending colon, transverse colon, descending colon, sigmoid colon, and rectum appeared normal.Scattered sigmoid diverticulosis. Random biopsies were done from ascending and descending colon to rule out microscopic/collagenous colitis. Retroflexion was performed in the rectum and no lesions were seen. The patient tolerated the procedure well. IMPRESSION: Normal-appearing colon from rectum to cecum with no evidence of colorectal neoplasia. Scattered similar diverticulosis. Poor prep in several areas of the colon. RECOMMENDATIONS: Findings of this examination were discussed with the patient as well as a family. He was advised to follow with the biopsy results. Recommend repeat colonoscopy in 5 years.
[2023-12-06 10:10] LABS: Glucose,Whole Blood 138 mg/dL (70-110)
[2023-12-06 10:33] VITALS: BP 142/68; PULSE 81; RESP 16
== END 2023-12-06 11:00 | disposition home or self-care (01) ==
LOC: ORWHC2ENDO 08:55
PROVIDERS: ATTEND Internal Medicine Gastroenterology
DX: K57.30 Diverticulosis of large intestine without perforation or abscess without bleeding (principal); K59.00 Constipation, unspecified; I10 Essential (primary) hypertension; E78.5 Hyperlipidemia, unspecified; G47.33 Obstructive sleep apnea (adult) (pediatric); J45.909 Unspecified asthma, uncomplicated; E11.9 Type 2 diabetes mellitus without complications; E07.9 Disorder of thyroid, unspecified; M06.9 Rheumatoid arthritis, unspecified; F41.9 Anxiety disorder, unspecified; F32.A Depression, unspecified; Z79.84 Long term (current) use of oral hypoglycemic drugs; Z79.51 Long term (current) use of inhaled steroids; Z98.890 Other specified postprocedural states; Z79.890 Hormone replacement therapy; Z87.891 Personal history of nicotine dependence; Z96.643 Presence of artificial hip joint, bilateral; Z79.899 Other long term (current) drug therapy
CPT/HCPCS: 88305; 45380; J2001; J2704

== ENCOUNTER → 2023-12-11 | Outpatient (CLI) | payer MEDICARE ==
[2023-12-11 09:08] LABS: African American GFR (CKD) >90 (>60 ml/min/1.73 sqM); Blood Urea Nitrogen 21 mg/dL (9-20); Non-African American GFR(CKD) >90 (>60 ml/min/1.73 sqM)
--- NOTE | 2023-12-12 12:21 | CT ---
EXAMINATION TYPE: CT angio chest CT DLP: 951 mGycm, Automated exposure control for dose reduction was used. DATE OF EXAM: 12/11/2023 10:20 AM COMPARISON: Chest radiograph from same day. Multiple CTs of the chest with most recent on . CLINICAL INDICATION:Male, 67 years old with history of I71.2thoracic aneurysm; Thoracic aortic aneury sm w/out rupture, leaky valve TECHNIQUE/CONTRAST: CTA scan of the thorax is performed with IV Contrast, patient injected with 100 mL of Isovue 370, MIP images are created and reviewed these are created on a separate workstation.. FINDINGS: Pulmonary Artery: There is no evidence for a filling defect within the pulmonary vasculature to sugge st acute pulmonary embolism. The pulmonary artery is of normal size. Lungs/Pleura: No evidence of focal consolidation, pleural effusion or pneumothorax. Airway: Large airways are patent. Heart: Heart is within normal limits for size. Vasculature: Ascending thoracic aorta is 41 mm diameter. Mediastinum: No gross evidence of adenopathy. Musculoskeletal: No acute osseous abnormalities Soft Tissues: Unremarkable. Lower neck: No significant findings. Upper Abdomen: No significant findings. IMPRESSION: 1. Ascending thoracic aorta is 41 mm diameter.
== END | disposition home or self-care (01) ==
LOC: RADCTMAIN 08:27
PROVIDERS: ATTEND Internal Medicine Interventional Cardiology
DX: I71.21 Aneurysm of the ascending aorta, without rupture (principal)
CPT/HCPCS: 82565; 84520; 71275; 36415; Q9967

== ENCOUNTER → 2024-03-21 | Outpatient (CLI) | payer MEDICARE ==
[2024-03-21 10:50] VITALS: BP 155/69; PULSE 88; RESP 16; TEMP 98.9
--- NOTE | 2024-03-21 11:14 | P.PROGSL ---
Subjective DATE: 03/21/2024 FOLLOW UP VISIT. Patient with obstructive sleep apnea hypopnea syndrome return to sleep center for follow-up visit. Information from previous visit have been reviewed. Patient is using PAP equipment every night for the whole night, getting PAP supplies in time. The patient does not have significant problems with the mask, PAP unit and humidification. [place] sleepiness scale is 8, which is in normal range. I checked information from PAP unit. PAP unit pressure 8-16, average 15.6 cm H2O. Usage is 100% for more then 4 hours, average 8.5 hours per night. Leak is increased to 33.6 l/m, patient changed his mask 1 months ago. Apnea Hypopnea Index is 1.4, which is normal. MEDICATIONS have been reviewed, please see below. During physical exam: GENERAL: A pleasant patient without any distress. VITAL SIGNS: Please see below, weight is 257.6 lbs. HEENT: PERRLA, EOMI.low position of soft palate, Mallapati 4 . NECK: Supple. No JVD. LUNGS: Clear to percussion and to auscultation. Good air exchange. No wheezing or rhonchi. HEART: S1, S2 regular. ABDOMEN: Soft and nontender.[] EXTREMITIES: No clubbing or cyanosis. SCIENTIFIC DIVER: Awake, alert, and oriented x3. No focal deficit. Impressions: 1. Obstructive sleep apnea-hypopnea syndrome. Patient demonstrated great compliance with treatment, benefiting from treatment. 2. Obesity, BMI 36.3, patient lost 16 pounds comparing with previous visit. 3. History of mononucleosis in August 2023. 4. Asthma. 5. Depression. 6. History of ADHD. 7. Hypothyroidism. 8. Nasal septum deviation. 9. Status post tonsillectomy. 10. BPH. 11. History of rheumatoid arthritis. . Plan: 1. Continue using PAP equipment every night for the whole night. 2. Sleep hygiene with regular time in bed for at least 7.5-8 hours 3. PAP unit should stay lower then position of the head. 4. Advised patient to remove all remaining water from humidifier canister daily and make it dry after each usage. Refill canister with fresh distilled water before each usage. 5. Watching and continue losing weight. 6. Precautions related to driving. No driving if feel any sleepiness. 7. I will maintain prescription for PAP supplies including mask, tube, filters. 8. Follow up visit in 6 months or earlier if patient has any problems. Thank you very much for allowing me to participate in the management of your patient. Jluis Schmitt MD, PhD, FAASM. Diplomat of [place] [employer], Sleep Medicine Board by [place] [employer] Veterinarian Assistant of [facility] [place] cc: Ethel Kay MD Objective - Vital Signs Vital Signs: Vital Signs Temp 98.9 F 03/21/24 10:49 Pulse 88 03/21/24 10:49 Resp 16 03/21/24 10:49 BP 155/69 03/21/24 10:49 Pulse Ox 95 03/21/24 10:49 FiO2 Intake & Output 03/20/24 03/21/24 03/21/24 18:59 06:59 18:59 Weight 116.573 kg Home Medications: Home Medications Medication Instructions Recorded Confirmed Type Bisoprolol-Hctz 10-6.25 mg [Ziac 1 tab PO QAM 07/24/17 12/06/23 History 10-6.25] Ergocalciferol (Vitamin D2) 50,000 unit PO Q14D 07/24/17 12/06/23 History [Vitamin D2] Levothyroxine Sodium [Synthroid] 150 mcg PO QAM 07/24/17 12/06/23 History Oxybutynin Chloride 10 mg PO HS 07/24/17 12/06/23 History Etanercept [Enbrel] 50 mg SQ CARR 01/04/18 12/06/23 History Fluticasone Nasal Pep [Flonase 1 spray EA NOSTRIL HS 07/02/18 12/06/23 History Nasal Pep] Tamsulosin HCl [Flomax] 0.8 mg PO HS 07/02/18 12/06/23 History metFORMIN HCL [Glucophage] 1,500 mg PO HS 07/02/18 12/06/23 History Atorvastatin [Lipitor] 40 mg PO HS 07/08/19 12/06/23 History Diclofenac Sodium Gel [Voltaren 2 gm TOPICAL QID PRN 07/08/19 12/06/23 History Gel] Rivaroxaban [Xarelto] 20 mg PO HS 07/08/19 12/06/23 History Ibuprofen 800 mg PO Q6H PRN 08/26/20 12/06/23 History amLODIPine BESYLATE/BENAZEPRIL 2 tab PO QAM 08/26/20 12/06/23 History [amLODIPine BESYLATE/BENAZEPRIL 5-20 MG] Acetaminophen [Tylenol Extra 1,000 mg PO HS PRN 01/21/21 12/06/23 History Strength] Fluticasone Propion/Salmeterol 1 - 2 inhalation PO DAILY 01/21/21 12/06/23 History [Advair 250-50 Diskus] HYDROcodone/APAP 5-325MG [[place] 1 tab PO Q6HR PRN #15 tab 01/25/21 12/06/23 Rx 5-325] Vitamin B12 1,000 unit PO DAILY 07/12/23 12/06/23 History Dapagliflozin Propanediol [Farxiga] 10 mg PO DAILY 07/12/23 12/06/23 History FLUoxetine HCL [PROzac] 60 mg PO HS 07/12/23 12/06/23 History Glimepiride 4 mg PO DAILY 07/12/23 12/06/23 History Mirabegron [Myrbetriq] 25 mg PO DAILY 07/12/23 12/06/23 History Semaglutide [Ozempic] 1 mg SQ WE 07/12/23 12/06/23 History Unk Multi Vitamin 1 tab PO DAILY 07/12/23 12/06/23 History traMADol HCL 50 mg PO Q8HR PRN 07/20/23 12/06/23 History
== END ==
LOC: 3 N SLEEP 10:26
PROVIDERS: ATTEND Internal Medicine
DX: G47.33 Obstructive sleep apnea (adult) (pediatric) (principal); E66.9 Obesity, unspecified; J45.909 Unspecified asthma, uncomplicated; F32.A Depression, unspecified; E03.9 Hypothyroidism, unspecified; N40.0 Benign prostatic hyperplasia without lower urinary tract symptoms; J34.2 Deviated nasal septum; M06.9 Rheumatoid arthritis, unspecified; F90.9 Attention-deficit hyperactivity disorder, unspecified type; Z98.890 Other specified postprocedural states; Z99.89 Dependence on other enabling machines and devices; Z86.19 Personal history of other infectious and parasitic diseases; Z90.89 Acquired absence of other organs; Z79.01 Long term (current) use of anticoagulants; Z79.899 Other long term (current) drug therapy; Z79.51 Long term (current) use of inhaled steroids; Z79.890 Hormone replacement therapy; Z68.36 Body mass index [BMI] 36.0-36.9, adult; Z91.09 Other allergy status, other than to drugs and biological substances; Z88.8 Allergy status to other drugs, medicaments and biological substances; Z91.048 Other nonmedicinal substance allergy status; Z87.891 Personal history of nicotine dependence
CPT/HCPCS: 99212

== ENCOUNTER → 2024-06-28 | Outpatient (CLI) | payer MEDICARE ==
[2024-06-28 15:46] LABS: ALT 42 U/L (10-49); AST 27 U/L (14-35); Albumin 4.2 g/dL (3.8-4.9); Albumin/Globulin Ratio 1.91 Ratio (1.60-3.17); Alkaline Phosphatase 116 U/L (41-126); BUN/Creat Ratio 21.38 Ratio (12.00-20.00); Blood Urea Nitrogen 17.1 mg/dL (9.0-27.0); Calcium 9.7 mg/dL (8.7-10.3); Carbon Dioxide 28.5 mmol/L (21.6-31.8); Chloride 102 mmol/L (96-109); Chol/HDL Ratio 2.38 Ratio; Globulin 2.2 g/dL (1.6-3.3); Glucose 252 mg/dL (70-110); LDL Cholesterol,Calculated 64.5 mg/dL (0.0-131.0); Potassium 4.3 mmol/L (3.5-5.5); Sodium 141 mmol/L (135-145); Total Bilirubin 0.4 mg/dL (0.3-1.2); Total Protein 6.4 g/dL (6.2-8.2)
[2024-06-28 20:58] LABS: Microalbumin Creatinine Ratio <21 mg/g Cr (0-30); Urine Creatinine 56.2 mg/dL (39.0-259.0)
== END | disposition home or self-care (01) ==
LOC: LABWHC1 08:47
PROVIDERS: ATTEND Internal Medicine Endocrinology, Diabetes & Metabolism
DX: E11.65 Type 2 diabetes mellitus with hyperglycemia (principal)
CPT/HCPCS: 36415; 80053; 80061; 82043; 82570; 83036; 84443

== ENCOUNTER → 2024-09-11 | Outpatient (CLI) | payer MEDICARE ==
[2024-09-11 14:07] LABS: African American GFR (CKD) >90 (>60 ml/min/1.73 sqM); Blood Urea Nitrogen 22 mg/dL (9-20); Non-African American GFR(CKD) 89 (>60 ml/min/1.73 sqM)
--- NOTE | 2024-09-11 14:58 | CT ---
EXAMINATION TYPE: CT soft tissue neck w con DATE OF EXAM: 09/11/2024 2:55 PM COMPARISON: None. CLINICAL INDICATION: Male, 68 years old with history of R42 DIZZINESS AND GIDDINESS M54.2 CERVICALGIA ; PHH, Neck pain and stiffness x 3 months TECHNIQUE: Standard enhanced CT of the neck. Axial sections with coronal and sagittal reformats were obtained. Contrast used:100 mL of Isovue 300 with IV Contrast, (None if empty) Oral contrast used: (None if empty) CT DLP: 659.5 mGycm, Automated exposure control for dose reduction was used. FINDINGS: Brain: Visualized portions are grossly unremarkable. Orbits: Bilaterally aphakia. Sinuses: Grossly unremarkable. Spaces of the neck: Clear and symmetric. Musculoskeletal: No acute osseous pathology. Degenerative disc disease changes of the visualized spin e are present. Large osteophytes impresses upon the esophagus. Space narrowing, osteophyte formation facet and uncovertebral joint arthropathy and constipation of the posterior longitudinal ligament pre sent. There is straightening of the alignment of the spine. Lymph nodes: Multiple nonenlarged lymph nodes are seen along both anterior chains of the neck. Vascular structures: Visualized major arteries are patent without evidence of aneurysm. Intracranial vasculature is patent. Atherosclerotic plaque is calcified of the intracranial internal carotid arter ies. Thoracic Inlet/airway: Airway is patent. The lung apices are clear. Soft tissues/Thyroid: Thyroid and remainder of the soft tissues are unremarkable. Other: none. IMPRESSION: 1. No definite evidence for abscess or significant abnormality. 2. Severe degeneration changes of the spine with large osteophytes impressing upon the posterior esop hagus correlate for dysphagia. [facility], , 09/11/2024 2:55 PM
== END | disposition home or self-care (01) ==
LOC: RADCTMAIN 13:13
PROVIDERS: ATTEND Family Medicine
DX: M47.892 Other spondylosis, cervical region (principal); R42 Dizziness and giddiness; R59.0 Localized enlarged lymph nodes; R13.10 Dysphagia, unspecified; M25.78 Osteophyte, vertebrae; H27.03 Aphakia, bilateral
CPT/HCPCS: 82565; 84520; 70491; 36415; Q9967

== ENCOUNTER → 2024-11-11 | Outpatient (CLI) | payer MEDICARE | END | disposition home or self-care (01) | LOC: LABWHC1 11:45 | PROVIDERS: ATTEND Internal Medicine Endocrinology, Diabetes & Metabolism | DX: E11.65 Type 2 diabetes mellitus with hyperglycemia (principal) | CPT/HCPCS: 36415; 83036 ==

== ENCOUNTER → 2024-11-28 | Outpatient (CLI) | payer MEDICARE ==
[2024-11-28 10:44] VITALS: BP 149/83; PULSE 68; RESP 20; TEMP 98.3
--- NOTE | 2024-11-28 11:13 | P.PROGSL ---
Subjective DATE: 11/28/2024 FOLLOW UP VISIT. Patient with obstructive sleep apnea hypopnea syndrome return to sleep center for follow-up visit. Information from previous visit have been reviewed. Patient is using PAP equipment every night for the whole night, getting PAP supplies in time. The patient does not have significant problems with the mask, PAP unit and humidification. [place] sleepiness scale is 10, which is borderline. I checked information from PAP unit. PAP unit pressure 8-16, average 15.4 cm H2O. Usage is 100% for more then 4 hours, average 9.4 hours per night. Leak is 5 l/m, which is in acceptable range. Apnea Hypopnea Index is 1.5, which is normal. MEDICATIONS: Advair, NovoLog, Lotrel, amlodipine, glimepiride, Flomax. During physical exam: GENERAL: A pleasant patient without any distress. VITAL SIGNS: Please see below, weight is 277 lbs. HEENT: PERRLA, EOMI.low position of soft palate, Mallapati 4 . NECK: Supple. No JVD. LUNGS: Clear to percussion and to auscultation. Good air exchange. No wheezing or rhonchi. HEART: S1, S2 regular. ABDOMEN: Soft and nontender. Obese EXTREMITIES: No clubbing or cyanosis. TRIMMER CLIMBER: Awake, alert, and oriented x3. No focal deficit. Impressions: 1. Obstructive sleep apnea-hypopnea syndrome. Patient demonstrated great compliance with treatment, benefiting from treatment. 2. Obesity, BMI 39.1, patient increased his weight and 20 pounds comparing with previous visit. 3. Neck problems, patient is preparing for neck surgery. 4. History of mononucleosis in August 2023. 5. Asthma. 6. Diabetes mellitus. 7. Depression. 8. Hypothyroidism. 9. Nasal septum deviation. 10. BPH. 11. History of rheumatoid arthritis. Plan: 1. Continue using PAP equipment every night for the whole night. 2. Sleep hygiene with regular time in bed for at least 7.5-8 hours 3. PAP unit should stay lower then position of the head. 4. Advised patient to remove all remaining water from humidifier canister daily and make it dry after each usage. Refill canister with fresh distilled water before each usage. 5. Watching and losing weight. 6. Precautions related to driving. No driving if feel any sleepiness. 7. I will maintain prescription for PAP supplies including mask, tube, filters. 8. Follow up visit in 8 months or earlier if patient has any problems. Thank you very much for allowing me to participate in the management of your patient. Jluis Schmitt MD, PhD, FAASM. Diplomat of [place] [employer], Sleep Medicine Board by [place] [employer] Medical Staff Assistant of [facility] [place] Objective - Vital Signs Vital Signs: Vital Signs Temp 98.3 F 11/28/24 10:43 Pulse 68 11/28/24 10:43 Resp 20 11/28/24 10:43 BP 149/83 11/28/24 10:43 Pulse Ox 97 11/28/24 10:43 FiO2 Intake & Output 11/27/24 11/28/24 11/28/24 18:59 06:59 18:59 Weight 125.645 kg Home Medications: Home Medications Medication Instructions Recorded Confirmed Type Bisoprolol-Hctz 10-6.25 mg [Ziac 1 tab PO QAM 07/24/17 12/06/23 History 10-6.25] Ergocalciferol (Vitamin D2) 50,000 unit PO Q14D 07/24/17 12/06/23 History [Vitamin D2] Levothyroxine Sodium [Synthroid] 150 mcg PO QAM 07/24/17 12/06/23 History Oxybutynin Chloride 10 mg PO HS 07/24/17 12/06/23 History Etanercept [Enbrel] 50 mg SQ CARR 01/04/18 12/06/23 History Fluticasone Nasal [place] [Flonase 1 spray EA NOSTRIL HS 07/02/18 12/06/23 History Nasal [place]] Tamsulosin HCl [Flomax] 0.8 mg PO HS 07/02/18 12/06/23 History metFORMIN HCL [Glucophage] 1,500 mg PO HS 07/02/18 12/06/23 History Atorvastatin [Lipitor] 40 mg PO HS 07/08/19 12/06/23 History Diclofenac Sodium Gel [Voltaren 2 gm TOPICAL QID PRN 07/08/19 12/06/23 History Gel] Rivaroxaban [Xarelto] 20 mg PO HS 07/08/19 12/06/23 History Ibuprofen 800 mg PO Q6H PRN 08/26/20 12/06/23 History amLODIPine BESYLATE/BENAZEPRIL 2 tab PO QAM 08/26/20 12/06/23 History [amLODIPine BESYLATE/BENAZEPRIL 5-20 MG] Acetaminophen [Tylenol Extra 1,000 mg PO HS PRN 01/21/21 12/06/23 History Strength] Fluticasone Propion/Salmeterol 1 - 2 inhalation PO DAILY 01/21/21 12/06/23 History [Advair 250-50 Diskus] HYDROcodone/APAP 5-325MG [[place] 1 tab PO Q6HR PRN #15 tab 01/25/21 12/06/23 Rx 5-325] Vitamin B12 1,000 unit PO DAILY 07/12/23 12/06/23 History Dapagliflozin Propanediol [Farxiga] 10 mg PO DAILY 07/12/23 12/06/23 History FLUoxetine HCL [PROzac] 60 mg PO HS 07/12/23 12/06/23 History Glimepiride 4 mg PO DAILY 07/12/23 12/06/23 History Mirabegron [Myrbetriq] 25 mg PO DAILY 07/12/23 12/06/23 History Semaglutide [Ozempic] 1 mg SQ WE 07/12/23 12/06/23 History Unk Multi Vitamin 1 tab PO DAILY 07/12/23 12/06/23 History traMADol HCL 50 mg PO Q8HR PRN 07/20/23 12/06/23 History
== END ==
LOC: 3 N SLEEP 10:23
PROVIDERS: ATTEND Internal Medicine
DX: G47.33 Obstructive sleep apnea (adult) (pediatric) (principal); E66.01 Morbid (severe) obesity due to excess calories; J45.909 Unspecified asthma, uncomplicated; E11.9 Type 2 diabetes mellitus without complications; F32.A Depression, unspecified; E03.9 Hypothyroidism, unspecified; J34.2 Deviated nasal septum; N40.0 Benign prostatic hyperplasia without lower urinary tract symptoms; Z68.39 Body mass index [BMI] 39.0-39.9, adult; Z87.39 Personal history of other diseases of the musculoskeletal system and connective tissue; Z86.19 Personal history of other infectious and parasitic diseases; Z98.890 Other specified postprocedural states; Z87.891 Personal history of nicotine dependence; Z88.8 Allergy status to other drugs, medicaments and biological substances
CPT/HCPCS: 99212

== ENCOUNTER → 2024-12-26 | Outpatient (CLI) | payer MEDICARE ==
[2024-12-26 10:42] LABS: Microalbumin Creatinine Ratio <13 mg/g Cr (0-30); Urine Creatinine 93.8 mg/dL (39.0-259.0)
[2024-12-26 15:25] LABS: ALT 49 U/L (10-49); AST 32 U/L (14-35); Albumin 4.1 g/dL (3.8-4.9); Albumin/Globulin Ratio 1.95 Ratio (1.60-3.17); Alkaline Phosphatase 85 U/L (41-126); Blood Urea Nitrogen 20.7 mg/dL (9.0-27.0); Calcium 9.5 mg/dL (8.7-10.3); Chloride 101 mmol/L (96-109); Chol/HDL Ratio 3.01 Ratio; Globulin 2.1 g/dL (1.6-3.3); Glucose 204 mg/dL (70-110); LDL Cholesterol,Calculated 64.3 mg/dL (0.0-131.0); Potassium 3.4 mmol/L (3.5-5.5); Sodium 143 mmol/L (135-145); Total Bilirubin 0.4 mg/dL (0.3-1.2); Total Protein 6.2 g/dL (6.2-8.2)
== END | disposition home or self-care (01) ==
LOC: LABWHC1 07:12
PROVIDERS: ATTEND Internal Medicine Endocrinology, Diabetes & Metabolism
DX: E11.65 Type 2 diabetes mellitus with hyperglycemia (principal)
CPT/HCPCS: 36415; 80053; 80061; 82043; 82570; 83036; 84443

== ENCOUNTER 2025-02-12 07:02 | Day surgery (SDC) | payer MEDICARE ==
[2025-02-11 10:48] VITALS: BMI 37.5
[2025-02-12] MEDS: IV FLUID CONTINUATION 1,000 ML IV ONE ×2 (07:31→08:08)
[2025-02-12 07:33] VITALS: TEMP 97
[2025-02-12] MEDS: LACTATED RINGERS 1,000 ML IV SCH (07:41)
[2025-02-12 07:42] LABS: Glucose,Whole Blood 172 mg/dL (70-110)
[2025-02-12] MEDS ORDERED: PROPOFOL 10 MG/ML 20 ML VIAL IV ONE (08:14)
[2025-02-12] MEDS ORDERED: LIDOCAINE 2% (PF) 20 MG/ML 5 ML VIAL ONE (08:14)
--- NOTE | 2025-02-12 08:23 | P.PCN ---
Date of Procedure: 02/12/25 Procedure(s) Performed: BRIEF HISTORY: Patient is a 69-year-old, pleasant, white male scheduled up anoscopy as a part of evaluation of intermittent dysphagia to solids for the last 3 months duration.. PROCEDURE PERFORMED: Esophagogastroduodenoscopy with biopsy. PREOPERATIVE DIAGNOSIS: Intermittent dysphagia to solids of 3 months duration. IV sedation per anesthesia. PROCEDURE: After informed consent was obtained, the patient was brought into the endoscopy unit. IV sedation was administered by Anesthesia under continuous monitoring. Initially the Olympus GIF-140 video endoscope was inserted into the mouth. Esophagus intubated without any difficulty. It was gradually advanced into the stomach and duodenum and carefully examined. The bulb and the second part of the duodenum appeared normal. The scope at this time was withdrawn to the stomach, adequately insufflated with air, and upon careful examination, mucosa of the antrum, patchy areas of erythema consistent with gastritis and biopsies were done from this area. Mucosa of the body, cardia and the fundus appeared normal. The scope was then withdrawn into the esophagus. The GE junction was located at 39 cm from the incisors. The esophagus appeared normal. There were no erosions or ulcerations seen. There was no evidence of esophageal stricture. Proximal cervical esophagus was carefully examined and appeared normal. Multiple biopsies were done from mid and distal esophagus to rule out eosinophilic esophagitis and the patient tolerated the procedure well. IMPRESSION: 1. Appearing esophagus with no evidence of esophagitis or esophageal stricture. 2. Mild antral gastritis. RECOMMENDATIONS: The findings of this examination were discussed with the patient as well as his family. He was advised to follow-up with the biopsy results. Follow-up in the office in 3 to 4 weeks..
[2025-02-12 08:43] VITALS: BP 119/67; PULSE 71; RESP 16
[2025-02-12 08:54] LABS: Glucose,Whole Blood 168 mg/dL (70-110)
== END 2025-02-12 09:12 | disposition home or self-care (01) ==
LOC: ORWHC2ENDO 07:02
PROVIDERS: ATTEND Internal Medicine Gastroenterology
DX: K20.90 Esophagitis, unspecified without bleeding (principal); K31.9 Disease of stomach and duodenum, unspecified; I10 Essential (primary) hypertension; E78.5 Hyperlipidemia, unspecified; I48.91 Unspecified atrial fibrillation; J45.909 Unspecified asthma, uncomplicated; G47.33 Obstructive sleep apnea (adult) (pediatric); E11.42 Type 2 diabetes mellitus with diabetic polyneuropathy; Z79.01 Long term (current) use of anticoagulants; Z79.899 Other long term (current) drug therapy; Z79.51 Long term (current) use of inhaled steroids; Z79.85 Long-term (current) use of injectable non-insulin antidiabetic drugs; Z79.4 Long term (current) use of insulin; Z88.8 Allergy status to other drugs, medicaments and biological substances; Z98.890 Other specified postprocedural states
CPT/HCPCS: 88305; 43239; J2704; J2003

== ENCOUNTER → 2025-03-07 | Outpatient (CLI) | payer MEDICARE ==
--- NOTE | 2025-03-07 10:37 | FL ---
EXAMINATION TYPE: FL barium swallow DATE OF EXAM: 03/07/2025 COMPARISON: None CLINICAL INDICATION: Male, 69 years old with history of R13.19 OTHER DYSPHAGIA; PH, TECHNIQUE: A double contrast esophagram is performed utilizing air and barium. A total of 28 second s of fluoroscopic time was utilized during procedure and 33 images obtained. Total dose area product (DAP) in uGy*m?, mGy*cm? (or similar) Not provided. COMPARISON: None FINDINGS: The esophagus shows normal motility and emptying into the stomach. Occasional tertiary cont ractions esophagus. No evidence of hiatal hernia or stricture noted. No significant gastroesophageal reflux was seen during real time performance of this study. A posterior impression of the cervical es ophagus due to large spurs in the cervical spine. IMPRESSION: 1. There are large spurs in the cervical spine result in posterior impression of the esophagus. [facility], , 03/07/2025 10:34 AM
== END | disposition home or self-care (01) ==
LOC: RADFLMAIN 09:37
PROVIDERS: ATTEND Internal Medicine Gastroenterology
DX: R13.19 Other dysphagia (principal)
CPT/HCPCS: 74220

== ENCOUNTER → 2025-03-19 | Outpatient (CLI) | payer MEDICARE ==
[2025-03-19 15:47] LABS: ALT 61 U/L (10-49); AST 36 U/L (14-35); Albumin 4.1 g/dL (3.8-4.9); Albumin/Globulin Ratio 1.71 Ratio (1.60-3.17); Alkaline Phosphatase 96 U/L (41-126); Anion Gap 12.60 mmol/L (4.00-12.00); BUN/Creat Ratio 25.00 Ratio (12.00-20.00); Blood Urea Nitrogen 22.5 mg/dL (9.0-27.0); Calcium 9.7 mg/dL (8.7-10.3); Carbon Dioxide 26.4 mmol/L (21.6-31.8); Chloride 103 mmol/L (96-109); Cholesterol 126.00 mg/dL (0.00-200.00); Globulin 2.4 g/dL (1.6-3.3); Glucose 192 mg/dL (70-110); HDL Cholesterol 44.10 mg/dL (40.00-60.00); LDL Cholesterol,Calculated 62.7 mg/dL (0.0-131.0); Potassium 3.7 mmol/L (3.5-5.5); Sodium 142 mmol/L (135-145); Total Protein 6.5 g/dL (6.2-8.2); Triglycerides 96.20 mg/dL (0.00-149.00); VLDL Calculation 19.24 mg/dL (5.00-40.00)
== END | disposition home or self-care (01) ==
LOC: LABWHC1 09:56
PROVIDERS: ATTEND Internal Medicine Endocrinology, Diabetes & Metabolism
DX: E11.65 Type 2 diabetes mellitus with hyperglycemia (principal)
CPT/HCPCS: 36415; 80053; 80061; 82043; 82570; 83036; 84443